=== PATIENT | male | born 1935 | race Caucasian/White ===

== ENCOUNTER 2019-11-03 00:26 | Inpatient (IN) | payer OTHER ==
[~2019-11-03] VITALS: Ht 167.6 cm; Wt 86.2 kg
[2019-11-03 00:28] VITALS: BP 120/70
--- NOTE | 2019-11-03 00:28 | NUR ---
BIBA TAKEN TO BED #11
--- NOTE | 2019-11-03 00:30 | NUR ---
84 year old male presents to ED bib BLS for c/o anxiety x 3 hours. pt states sometimes have SOB but no work of breathing noted. rr even and unlabored. denies cough. pt is a/o x 4 and verbal. denies any headache or blurry vision. noted pacemaker . noted lt sided hemiparesis. no other s/sx reported or observed. awaiting MSE. connected to cardiac monitoring and pulse oximetry monitoring. safety precautions in place with bed lowest and locked pmhx: emphysema, prostate ca, cva with lt hemiparesis, pacemaker. allx: pcn
[2019-11-03] MEDS ORDERED: NITROGLYCERIN 0.4 MG TAB SL ONE (00:45)
--- NOTE | 2019-11-03 01:08 | NUR ---
xray at bedside.
[2019-11-03 01:18] LABS: BASOPHILS % (AUTO) 0.8 % (0.0-2.0); EOSINOPHILS # (AUTO) 0.3 K/uL (0-0.4); EOSINOPHILS % (AUTO) 5.3 % (0.0-4.0); HEMATOCRIT 30.7 % (36-52); HEMOGLOBIN 9.9 g/dL (12.0-18.0); LYMPHOCYTES # (AUTO) 0.7 K/uL (2.0-11.5); LYMPHOCYTES % (AUTO) 10.8 % (20.5-51.1); MEAN CORPUSCULAR HEMOGLOBIN 33 pg (27-31); MEAN CORPUSCULAR HGB CONC 32 g/dL (33-37); MONOCYTES # (AUTO) 0.5 K/uL (0.8-1.0); MONOCYTES % (AUTO) 8.7 % (1.7-9.3); NEUTROPHILS # (AUTO) 4.5 K/uL (1.8-7.7); NEUTROPHILS % (AUTO) 74.4 % (42.2-75.2); PLATELET COUNT (AUTO) 140 K/uL (140-450); RED BLOOD CELL COUNT(AUTO) 2.99 MIL/uL (4.20-6.10); RED CELL DISTRIBUTION WIDTH 14.5 % (11.6-13.7); WHITE BLOOD COUNT (AUTO) 6.1 K/uL (4.8-10.8)
[2019-11-03 01:41] LABS: ALBUMIN 3.2 g/dL (3.4-5.0); ANION GAP 19.4 (8-16); ASPARTATE AMINOTRANSFERASE 49 U/L (15-37); CARBON DIOXIDE 17.7 mmol/L (21-32); CHLORIDE 108 mmol/L (98-107); GLUCOSE 92 mg/dL (74-106); POTASSIUM 4.1 mmol/L (3.5-5.1); SODIUM SERUM 141 mmol/L (136-145); TOTAL BILIRUBIN 0.4 mg/dL (0.0-1.0); UREA NITROGEN, BLOOD 33 mg/dL (7-18)
[2019-11-03] MEDS ORDERED: ASPIRIN 81 MG TAB.CHEW PO ONE (02:35)
[2019-11-03] MEDS ORDERED: ONDA4TAB PO (02:37)
[2019-11-03] MEDS ORDERED: ACET-5629 PO (02:37)
[2019-11-03] MEDS ORDERED: ESCI20TA PO (02:37)
[2019-11-03] MEDS ORDERED: DOCU-3 PO (02:37)
[2019-11-03] MEDS ORDERED: ATOR40TA PO (02:37)
[2019-11-03] MEDS ORDERED: OSC500 PO (02:37)
[2019-11-03] MEDS ORDERED: LACT10SO40 PO (02:37)
[2019-11-03] MEDS ORDERED: ASPI81EC98 PO (02:37)
[2019-11-03] MEDS ORDERED: FERR-20 PO (02:37)
[2019-11-03] MEDS ORDERED: VITA1TAB44 PO (02:37)
[2019-11-03] MEDS ORDERED: PANT40EC PO (02:37)
[2019-11-03] MEDS ORDERED: ISOS20TA13 PO (02:37)
[2019-11-03] MEDS ORDERED: MULT-2611 PO (02:37)
[2019-11-03] MEDS ORDERED: NITR0.4T2 SL (02:37)
[2019-11-03] MEDS ORDERED: CARV6.25 PO (02:37)
--- NOTE | 2019-11-03 03:05 | NUR ---
Patient will be admitted to care of Dr. Ortiz. Admited to Telemetry. Will go to room 121. Belongings list completed. Report to Alaina COLLAZO.
[2019-11-03 03:06] VITALS: BP 150/100
--- NOTE | 2019-11-03 03:06 | NUR ---
RECEIVED PT AAOX1 , FROM ER / GURNEY , TRANSFER TO BED BY MANUAL LIFT .NID - O2 SAT WNL , IV SITE INTACRT AND PATENT , HX OF CVA , - FALL RISK , PLAN OF CARE DISCUSSED AND VERBALIZE . SAFETY MEASURE IN PLACE . HIGH TROPONIN UPON ADM . C/O PAIN - WILL REFER TO MD . CODE STATUS WILL VERIFY FROM PATRICK .
--- NOTE | 2019-11-03 04:00 | NUR ---
NO S/SX OF ACUTE DISTRESS NOTED AT THIS TIME . PT APPEARS COMFORTABLY . Addendum: 11/03/19 at 0815 by Alaina Ozuna RN LEFT MSG TO [facility] BUNDY ABOUT CODE STATUS AND DIRECTIVES ORDERS - WILL ENDORSED TO AM SHIFT TO FF UP .
[2019-11-03] MEDS ORDERED: HEPARIN PER PHARMACY MC PRN (04:50)
[2019-11-03] MEDS ORDERED: hePARIN / DEXT 5% PREMIX 250 ML IV SCH (06:00)
[2019-11-03] MEDS: hePARIN / DEXT 5% PREMIX 250 ML IV SCH ×3 (06:20→22:13)
--- NOTE | 2019-11-03 06:20 | NUR ---
HEPARIN DRIP - STARTED - PTT WILL BE AT 1220 PM - WILL ENDORSE , RPT TROPONIN WILL BE ON 945 - WILL ENDORSE .
--- NOTE | 2019-11-03 07:30 | NUR ---
ENDORSED TO AM SHIFT - PT - STABLE .
--- NOTE | 2019-11-03 07:30 | NUR ---
RECEIVED PATIENT FROM NIGHT NURSE. PATIENT IS AWAKE, ALERT, ORIENTED X3. RESP EVEN AND UNLABORED ON ROOM AIR. PATIENT DENIES OF PAIN AT THIS TIME. HEPARIN DRIP INFUSING TO LEFT LOWER LEG IV ACCESS, 1550 UNITS. SKIN IS WARM TO TOUCH. ABLE TO MAKE NEEDS KNOWN. PLAN OF CARE DISCUSSED WITH PATIENT, PATIENT VERBALIZED UNDERSTANDING. CALL LIGHT WITHIN REACH. WILL CONTINUE TO MONITOR. Addendum: 11/03/19 at 1122 by Howard Dennis RN ECCHYMOSIS NOTED TO LEFT UPPER ARM AND LOWE EXTREMITIES. SKIN IS INTACT
--- NOTE | 2019-11-03 07:59 | NUR ---
PATIENT HAS BEEN SCREENED AND CATEGORIZED MODERATE NUTRITION RISK. PATIENT WILL BE SEEN WITHIN 3-5 DAYS OF ADMISSION. 11/05/19 11/07/[address]
[2019-11-03 08:00] VITALS: BP 146/76
--- NOTE | 2019-11-03 08:05 | NUR ---
PATIENT HAS NO POLST ON FILE AND NO CODE STATUS AT THIS TIME. [facility] WAS CALLED AND SPOKE TO ALISHA THE PASSENGER BOOKING CLERK ABOUT PATIENT CODE STATUS, ALISHA WILL CALL THE FACILITY AND WILL FAX OVER ANY INFORMATION ABOUT PATIENT CODE STATUS. SPOKE TO PATIENT SON NELLY. ACCORDING TO PATIENT NELLY, PATIENT IS A DNR AND BEEN UNDER THE [facility]. WILL CONTINUE TO MONITOR.
[2019-11-03 08:40] LABS: BARBITURATE, URINE NEGATIVE ng/ml (NEG <=200); BENZODIAZEPINE, URINE POSITIVE ng/mL (NEG <=200); COCAINE, URINE NEGATIVE ng/mL (NEG <=300)
[2019-11-03 08:41] LABS: CANNABINOID, URINE NEGATIVE ng/mL (NEG <=50); OPIATE, URINE POSITIVE ng/mL (NEG <=2000); PHENCYCLIDINE SCREEN,URINE NEGATIVE ng/mL (NEG <=25)
--- NOTE | 2019-11-03 09:20 | NUR ---
ALISHA CALLED BACK AND SAID NO INFORMATION ABOUT PATIENT CODE STATUS FOUND AT THE FACILITY. PATIENT WAS ASKED AND HE SAID HE IS A DNR. WILL INFORM DR SAHA TO HAVE FAMILY SIGN A POLST.
[2019-11-03] MEDS ORDERED: oxyCODONE/APAP 5/325 MG 1 TAB TAB PO PRN (09:55)
[2019-11-03] MEDS ORDERED: HYDROcodone/APAP 5/325 MG 1 TAB TAB PO PRN (09:55)
[2019-11-03] MEDS ORDERED: POTASSIUM CHLORIDE 10 MEQ TABER PO PRN (09:55)
[2019-11-03] MEDS ORDERED: ONDANSETRON 4 MG/2 ML VIAL IM/IVP PRN ×2 (09:55→10:35)
[2019-11-03] MEDS ORDERED: MAG SULF 2000 MG/WATER PREMIX 50 ML IV PRN (09:55)
[2019-11-03] MEDS ORDERED: ONDANSETRON 4 MG TAB PO PRN (09:55)
[2019-11-03] MEDS ORDERED: ACETAMINOPHEN 325 MG TAB PO PRN (09:55)
[2019-11-03] MEDS ORDERED: DOCUSATE SODIUM 100 MG GELCAP PO PRN (09:55)
--- NOTE | 2019-11-03 10:01 | NUR ---
PATIENT HAS A AV FISTULA TO RIGHT ANTECUBITAL, B/T NOTED. RIGHT ARM RESTRICTION TO BP AND BLOOD DRAW SIGN POSTED.
[2019-11-03] MEDS: MORPHINE SULFATE 2 MG/ML SYR IVP PRN ×2 (10:35→15:38)
[2019-11-03 10:44] LABS: CHOL/HDL RATIO 5.2 (1-4.5); THYROID STIMULATING HORMONE 1.18 uIU/mL (0.34-3.74)
[2019-11-03 12:00] VITALS: BP 143/75
[2019-11-03 13:26] LABS: PROTHROMBIN TIME 12.9 secs (10.8-13.4)
--- NOTE | 2019-11-03 13:45 | NUR ---
APTT RESULT >150 SEC. PER HEPARIN PROTOCOL, HEPARIN IS NOW ON HOLD FOR ONE HOUR THEN WILL REDUCE RATE BY 260 UNITS/HR. APTT IS NOW BEING REDRAWN TO CONFIRM.
[2019-11-03] MEDS: NACL 0.9% 1,000 ML IV SCH (14:08)
--- NOTE | 2019-11-03 14:12 | NUR ---
NUMEROUS ATTEMPTS MADE TO INSERT A SECOND IV ACCESS, BUT WERE UNSUCCESSFUL. NS IS NOW RUNNING INTO IV ACCESS OF LOWER LEG.
--- NOTE | 2019-11-03 14:53 | NUR ---
HEPARIN DRIP RESTART PER PROTOCOL 1290 UNITS/HR.
[2019-11-03 16:00] VITALS: BP 156/80
--- NOTE | 2019-11-03 16:05 | NUR ---
PT WANTS TO CONSIDER HOSPICE ONCE HE'S DISCHARGED BACK TO [facility]. PATIENT ALSO MENTIONED THAT ALISHA, THE CAUSTIC LIQUOR MAKER OF [facility] AND HIS SON NELLY ARE AWARE OF THE POTENTIAL PLAN OF HOSPICE CARE. PATIENT SON IS MADE AWARE.
[2019-11-03 16:30] LABS: APPEARANCE,URINE CLEAR (CLEAR); BILIRUBIN,URINE NEGATIVE (NEGATIVE); BLOOD, URINE TRACE-I (NEGATIVE); COLOR,URINE YELLOW (YELLOW); LEUKOCYTE ESTERASE ,URINE NEGATIVE (NEGATIVE); NITRITE, URINE NEGATIVE (NEGATIVE); PH,URINE 5.5 (5.0-9.0); UGLUCOSE NEGATIVE (NEGATIVE)
--- NOTE | 2019-11-03 16:37 | NUR ---
SPOKE WITH DR. VEGA REGARDING THE CONSULT. PER DR. VEGA, HE WILL SEE PT TOMORROW MORNING. DR. SAHA AND LIZBETH COLLAZO MADE AWARE.
[2019-11-03] MEDS: LACTULOSE 20 GM/30 ML UDC PO SCH (16:46)
[2019-11-03] MEDS: LORazepam 2 MG/ML VIAL IM/IVP PRN (17:16)
--- NOTE | 2019-11-03 17:42 | NUR ---
SPOKE WITH ALISHA PER PATIENT REQUEST ABOUT HOSPICE CARE. PER ALISHA, PATIENT WILL NOT BE TAKEN BACK TO [facility] UNLESS HE HAS HOSPICE CARE FOLLOW. ALISHA STATED JON THE YEAST FERMENTATION ATTENDANT AT [facility] IN [place] IS READY TO TAKE PATIENT ONCE PATIENT HAS DECIDED FOR HOSPICE CARE. JON CAN BE REACHED AT [phone]. PATIENT IS MADE AWARE THAT COPY CAMERA OPERATOR WILL BE HERE DURING THE WEEK AND WILL SET UP HOSPICE FOR HIM. PATIENT VERBALIZED UNDERSTANDING. WILL CONTINUE TO MONITOR.
--- NOTE | 2019-11-03 19:26 | NUR ---
RECEIVED PATIENT IN STABLE CONDITION FROM AM SHIFT NURSE FOR CONTINUITY OF CARE. TELE PATIENT. AAOX2-3, ABLE TO MAKE NEEDS KNOWN, FOLLOWS SIMPLE COMMANDS. RESPIRATIONS EVEN, UNLABORED. SKIN WARM, DRY. IV SITE TO LEFT LOWER LEG PATENT/INTACT, INFUSING HEPARIN AND FLUIDS WELL. NO C/O PAIN. NO S/S ACUTE DISTRESS. ABDOMEN SOFT, NONTENDER, NONDISTENDED. PATIENT IS INCONTINENT OF BOWEL AND BLADDER. PLAN OF CARE DISCUSSED WITH PATIENT. SAFETY PRECAUTIONS IN PLACE. CALL LIGHT WITHIN REACH.
--- NOTE | 2019-11-03 19:26 | NUR ---
ENDORSED PATIENT TO NIGHT NURSE. PATIENT IN STABLE CONDITION.
[2019-11-03 20:00] VITALS: BP 100/55
[2019-11-03] MEDS: DOCUSATE SODIUM 100 MG GELCAP PO SCH (20:45)
[2019-11-03] MEDS: ATORVASTATIN 20 MG TAB PO SCH (20:46)
[2019-11-03] MEDS: carvediloL 6.25 MG TAB PO SCH (20:56)
--- NOTE | 2019-11-03 21:10 | NUR ---
RECEIVED APTT FROM LAB OF 120.3. HEPARIN HELD PER PROTOCOL. PATIENT IS ASLEEP AND IN NO DISTRESS. CALL LIGHT WITHIN REACH. SAFETY PRECAUTIONS IN PLACE.
--- NOTE | 2019-11-03 22:10 | NUR ---
PATIENT'S HEPARIN RESTARTED AND LOWERED TO 10.3 ML/HR (1030 UNITS/HR) ORDERED. PATIENT ASLEEP AND IN NO DISTRESS. CALL LIGHT WITHIN REACH. SAFETY PRECAUTIONS IN PLACE.
--- NOTE | 2019-11-03 23:29 | NUR ---
PATIENT IS ASLEEP AND IN STABLE CONDITION. NO S/S ACUTE DISTRESS. CALL LIGHT WITHIN REACH. SAFETY PRECAUTIONS IN PLACE.
[2019-11-04] VITALS: BP 144/73
[2019-11-04] MEDS: MORPHINE SULFATE 2 MG/ML SYR IVP PRN ×4 (00:13→18:55)
--- NOTE | 2019-11-04 00:13 | NUR ---
PATIENT C/O ACHING CHEST PAIN 09/13. MEDICATED ORDERED.
[2019-11-04] MEDS: hePARIN / DEXT 5% PREMIX 250 ML IV SCH ×4 (00:51→21:08)
--- NOTE | 2019-11-04 01:13 | NUR ---
REASSESSED PATIENT'S PAIN LEVEL AT 0/10, PATIENT IS ASLEEP. CALL LIGHT WITHIN REACH. SAFETY PRECAUTIONS IN PLACE.
--- NOTE | 2019-11-04 03:00 | NUR ---
PATIENT IS ASLEEP. NO S/S ACUTE DISTRESS. CALL LIGHT WITHIN REACH.
[2019-11-04 04:00] VITALS: BP 140/81
--- NOTE | 2019-11-04 05:00 | NUR ---
INCONTINENT CARE RENDERED WITH SHIFT SUPERINTENDENT AT BEDSIDE. PATIENT IS AWAKE WITH NO C/O PAIN. NO S/S ACUTE DISTRESS. CALL LIGHT WITHIN REACH. SAFETY PRECAUTIONS IN PLACE.
--- NOTE | 2019-11-04 06:05 | NUR ---
RECEIVED APTT FROM LAB OF 126.7. HEPARIN PROTOCOL FOLLOWED. PATIENT IS ASLEEP AND IN NO DISTRESS AT THIS TIME. CALL LIGHT IN REACH. SAFETY PRECAUTIONS IN PLACE.
[2019-11-04 06:21] LABS: BASOPHILS # (AUTO) 0.1 K/uL (0.00-0.22); BASOPHILS % (AUTO) 1.3 % (0.0-2.0); EOSINOPHILS # (AUTO) 0.2 K/uL (0-0.4); EOSINOPHILS % (AUTO) 4.5 % (0.0-4.0); HEMATOCRIT 28.1 % (36-52); HEMOGLOBIN 9.2 g/dL (12.0-18.0); LYMPHOCYTES # (AUTO) 0.5 K/uL (2.0-11.5); MEAN CORPUSCULAR HEMOGLOBIN 33 pg (27-31); MEAN CORPUSCULAR HGB CONC 33 g/dL (33-37); MEAN CORPUSCULAR VOLUME 101.5 fL (80-94); MONOCYTES # (AUTO) 0.3 K/uL (0.8-1.0); MONOCYTES % (AUTO) 5.9 % (1.7-9.3); NEUTROPHILS % (AUTO) 78.3 % (42.2-75.2); PLATELET COUNT (AUTO) 124 K/uL (140-450); RED BLOOD CELL COUNT(AUTO) 2.76 MIL/uL (4.20-6.10); RED CELL DISTRIBUTION WIDTH 13.8 % (11.6-13.7); WHITE BLOOD COUNT (AUTO) 5.1 K/uL (4.8-10.8)
[2019-11-04 06:36] LABS: ANION GAP 16.5 (8-16); CARBON DIOXIDE 19.2 mmol/L (21-32); CHLORIDE 109 mmol/L (98-107); CREATININE 2.8 mg/dL (0.6-1.3); GLUCOSE 84 mg/dL (74-106); POTASSIUM 3.7 mmol/L (3.5-5.1); SODIUM SERUM 141 mmol/L (136-145); UREA NITROGEN, BLOOD 29 mg/dL (7-18)
[2019-11-04 06:38] LABS: MAGNESIUM 1.5 mg/dL (1.8-2.4)
--- NOTE | 2019-11-04 07:16 | NUR ---
ENDORSED PATIENT IN STABLE CONDITION TO AM SHIFT NURSE FOR CONTINUITY OF CARE.
--- NOTE | 2019-11-04 07:17 | NUR ---
RECEIVED REPORT FROM SENIOR CONTROL SYSTEMS ENGINEER NURSE. PATIENT SITTING IN BED WITH BREAKFAST TRAY IN FRONT. NO DISTRESS NOTED. RESPIRATIONS EVEN, UNLABORED, ON ROOM AIR. IV SITE INTACT, PATENT, AND INFUSING IVF PER MD ORDERS. RUARM AV FISTULA NOTED, INTACT, PATENT. HAS BUTTOCK SKIN TEAR, DRESSING DRY AND INTACT. USES URINAL FOR URINATING. REVIEWED PLAN OF CARE WITH PATIENT. REINFORCEMENT NEEDED. SAFETY MEASURES IN PLACE, CALL LIGHT WITHIN REACH. WILL CONTINUE TO MONITOR.
[2019-11-04 08:00] VITALS: BP 158/84
[2019-11-04 08:09] LABS: T4 (THYROXINE) 7.4 ug/dL (4.5-12.0)
[2019-11-04] MEDS ORDERED: MULTIVITAMIN 1 TAB PO SCH (09:00)
[2019-11-04] MEDS: VIT-B COMP/VIT-C/FOLIC ACID 1 TAB PO SCH (09:22)
[2019-11-04] MEDS: carvediloL 6.25 MG TAB PO SCH ×2 (09:22→20:46)
[2019-11-04] MEDS: ISOSORBIDE DINITRATE 20 MG TAB PO SCH (09:23)
[2019-11-04] MEDS: LACTULOSE 20 GM/30 ML UDC PO SCH ×3 (09:23→20:45)
[2019-11-04] MEDS: ECOTRIN 81 MG TABEC PO SCH (09:23)
[2019-11-04] MEDS: CALCIUM CARBONATE 500 MG TAB PO SCH (09:23)
[2019-11-04] MEDS: ESCITALOPRAM 20 MG TAB PO SCH (09:23)
[2019-11-04] MEDS: FERROUS SULFATE 325 MG TABEC PO SCH (09:23)
[2019-11-04] MEDS: PANTOPRAZOLE 40 MG TABEC PO SCH (09:23)
[2019-11-04] MEDS: DOCUSATE SODIUM 100 MG GELCAP PO SCH ×2 (09:23→20:45)
--- NOTE | 2019-11-04 09:34 | NUR ---
SCHEDULED MEDICATIONS DUE GIVEN. WILL CONTINUE TO MONITOR.
[2019-11-04] MEDS: NACL 0.9% 1,000 ML IV SCH (09:54)
--- NOTE | 2019-11-04 11:04 | NUR ---
PATIENT LYING DOWN IN BED SLEEPING, AROUSABLE BY VOICE. NO DISTRESS NOTED.
[2019-11-04 12:00] VITALS: BP 121/65
[2019-11-04] MEDS ORDERED: EPOETIN ALFA 10,000 UNITS/ML VIAL SUBQ SCH (12:30)
--- NOTE | 2019-11-04 12:35 | NUR ---
PATIENT COMPLAINS OF PAIN, MORPHINE GIVEN AT THIS TIME. OTHER SCHEDULED MEDICATIONS DUE GIVEN. WILL CONTINUE TO MONITOR.
[2019-11-04] MEDS: LORazepam 2 MG/ML VIAL IM/IVP PRN (14:19)
--- NOTE | 2019-11-04 14:23 | NUR ---
PATIENT COMPLAINS OF ANXIETY. ATIVAN GIVEN AT THIS TIME. WILL CONTINUE TO MONITOR.
[2019-11-04 16:00] VITALS: BP 121/64
--- NOTE | 2019-11-04 16:00 | NUR ---
PATIENT LYING DOWN IN BED. SLEEPING, AROUSABLE BY VOICE. NO DISTRESS NOTED. WILL CONTINUE TO MONITOR.
--- NOTE | 2019-11-04 18:56 | NUR ---
PATIENT COMPLAINS OF PAIN, MORPHINE GIVEN AT THIS TIME. WILL CONTINUE TO MONITOR.
--- NOTE | 2019-11-04 19:13 | NUR ---
GAVE REPORT TO CHAINSTITCH ZIPPER SETTER NURSE FOR CONTINUITY OF CARE. PATIENT IN STABLE CONDITION.
--- NOTE | 2019-11-04 19:20 | NUR ---
RECEIVED PT IN STABLE CONDITION FROM AM NURSE. FOR CONTINUITY OF CARE. AWAKE,ALERT AND ORIENTED X3. TELE PT. WITH PACEMAKER. O2 2L/NC. O2 SAT 97%. BEDREST DUE TO WEAKNESS. NO DISTRESS NOTED. HAS HEPARIN DRIP INFUSING ON THE LT LOWE LEG G#20. CLEAR AND PATENT. NO C/O ANY DISCOMFORT AT THIS TIME. FREQ ROUNDS NEEDED. BED ON LOW POSITION. SIDE RAILS UP X2. CALL LIGHT WITHIN REACH. WILL CONTINUE TO MONITOR.
[2019-11-04 20:00] VITALS: BP 126/77
[2019-11-04] MEDS: FUROSEMIDE 20 MG TAB PO SCH (20:45)
[2019-11-04] MEDS: SODIUM BICARBONATE 650 MG TAB PO SCH (20:46)
[2019-11-04] MEDS: ATORVASTATIN 20 MG TAB PO SCH (20:46)
--- NOTE | 2019-11-04 21:00 | NUR ---
LAB CALLED FOR PTT LEVEL 83.6 , ON HEPARIN DRIP . PROTOCOL FOLLOWED. ZAY LEVY CHARGE AWARE AND CO SIGNED THE CHANGE. NEXT PTT WILL BE 0300 AM.
[2019-11-04] MEDS: ZOLPIDEM 5 MG TAB PO PRN (21:12)
--- NOTE | 2019-11-04 22:00 | NUR ---
MADE ROUNDS. PT IS ASLEEP. NO S/S OF ANY DISCOMFORT NOTED. WILL CONTINUE TO MONITOR.
[2019-11-05] VITALS: BP 115/67
--- NOTE | 2019-11-05 00:10 | NUR ---
CHECKED ON PT. SLEEP. WITH HEPARIN DRIP INFUSING WELL. NO S/S OF ANY DISTRESS NOTED.
--- NOTE | 2019-11-05 01:00 | NUR ---
ENDORSED PT IN STABLE CONDITION TO MILDRED ,FOR CONTINUITY OF CARE.
--- NOTE | 2019-11-05 01:10 | NUR ---
RECEIVED REPORT OF PT IN STABLE CONDITION.NO ANY DISTRESS.HEPARIN DRIP IS IN PROGRESS. WILL CONTINUE MONITORING.
[2019-11-05] MEDS: LORazepam 2 MG/ML VIAL IM/IVP PRN ×3 (03:18→22:41)
[2019-11-05 03:19] LABS: BASOPHILS % (AUTO) 0.9 % (0.0-2.0); EOSINOPHILS # (AUTO) 0.2 K/uL (0-0.4); EOSINOPHILS % (AUTO) 4.8 % (0.0-4.0); HEMATOCRIT 28.2 % (36-52); HEMOGLOBIN 9.1 g/dL (12.0-18.0); LYMPHOCYTES # (AUTO) 0.7 K/uL (2.0-11.5); LYMPHOCYTES % (AUTO) 14.3 % (20.5-51.1); MEAN CORPUSCULAR HEMOGLOBIN 33 pg (27-31); MEAN CORPUSCULAR HGB CONC 32 g/dL (33-37); MEAN CORPUSCULAR VOLUME 101.8 fL (80-94); MONOCYTES # (AUTO) 0.4 K/uL (0.8-1.0); MONOCYTES % (AUTO) 8.5 % (1.7-9.3); NEUTROPHILS # (AUTO) 3.4 K/uL (1.8-7.7); NEUTROPHILS % (AUTO) 71.5 % (42.2-75.2); PLATELET COUNT (AUTO) 136 K/uL (140-450); RED BLOOD CELL COUNT(AUTO) 2.77 MIL/uL (4.20-6.10); RED CELL DISTRIBUTION WIDTH 13.8 % (11.6-13.7); WHITE BLOOD COUNT (AUTO) 4.7 K/uL (4.8-10.8)
[2019-11-05 03:43] LABS: MAGNESIUM 2.2 mg/dL (1.8-2.4); PHOSPHORUS 2.9 mg/dL (2.5-4.9)
[2019-11-05 03:45] LABS: ALBUMIN 2.9 g/dL (3.4-5.0); ANION GAP 17.9 (8-16); ASPARTATE AMINOTRANSFERASE 61 U/L (15-37); CARBON DIOXIDE 17.9 mmol/L (21-32); CHLORIDE 109 mmol/L (98-107); CREATININE 2.9 mg/dL (0.6-1.3); GLUCOSE 83 mg/dL (74-106); POTASSIUM 3.8 mmol/L (3.5-5.1); SODIUM SERUM 141 mmol/L (136-145); TOTAL BILIRUBIN 0.4 mg/dL (0.0-1.0); UREA NITROGEN, BLOOD 29 mg/dL (7-18)
[2019-11-05 04:00] VITALS: BP 118/65
[2019-11-05] MEDS: hePARIN / DEXT 5% PREMIX 250 ML IV SCH (04:25)
--- NOTE | 2019-11-05 04:57 | NUR ---
PTT=59.8.NO NEED TO CHANGE RATE OF HEPARIN DRIP.STILL IS 6ML/H.TROPONIN=0.165.DIDN'T CALL MD DUE TO TRENDING DOWN. HR IS PACED ON 70/H.HAD C/O ANXIETY.ADMINISTERED ATIVAN IVP.SLEEPING AT THIS TIME W/O S/S OF ANY DISTRESS.
--- NOTE | 2019-11-05 06:08 | NUR ---
SLEEPING. NO S/S OF ANY DISTRESS NOTED AT PRESENT TIME.HEPARIN DRIP AT 6ML/H INFUSING WELL.CALL LIGHT WITHIN REACH.
[2019-11-05] MEDS: MORPHINE SULFATE 2 MG/ML SYR IVP PRN ×3 (07:35→19:05)
--- NOTE | 2019-11-05 07:36 | NUR ---
HAD C/O RT ARM PAIN MORPHINE 1MG IVP GIVEN.ENDORSED REPORT TO SANTA COLLAZO AM NURSE.HE WILL REASSESS PAIN LATER.
--- NOTE | 2019-11-05 07:37 | NUR ---
RECEIVED REPORT FROM UNION ORGANISER NURSE. PATIENT SITTING IN BED. NO DISTRESS NOTED. COMPLAINS OF PAIN, WILL MEDICATE WITH MORPHINE. RESPIRATIONS EVEN, UNLABORED, ON ROOM AIR. IV SITE INTACT, PATENT, AND INFUSING IVF PER MD ORDERS. RUARM AV FISTULA NOTED, INTACT, PATENT. HAS BUTTOCK SKIN TEAR, DRESSING DRY AND INTACT. USES URINAL FOR URINATING. REVIEWED PLAN OF CARE WITH PATIENT. REINFORCEMENT NEEDED. SAFETY MEASURES IN PLACE, CALL LIGHT WITHIN REACH. WILL CONTINUE TO MONITOR.
[2019-11-05 08:00] VITALS: BP 141/66
[2019-11-05] MEDS: ISOSORBIDE DINITRATE 20 MG TAB PO SCH ×2 (09:00→10:22)
[2019-11-05] MEDS ORDERED: VIT-B COMP/VIT-C/FOLIC ACID 1 TAB PO SCH (09:00)
[2019-11-05] MEDS: carvediloL 6.25 MG TAB PO SCH ×2 (09:00→20:20)
[2019-11-05] MEDS: NACL 0.9% 1,000 ML IV SCH (09:54)
[2019-11-05] MEDS: FUROSEMIDE 20 MG TAB PO SCH ×2 (10:16→20:20)
[2019-11-05] MEDS: ECOTRIN 81 MG TABEC PO SCH (10:16)
[2019-11-05] MEDS: LACTULOSE 20 GM/30 ML UDC PO SCH ×2 (10:16→20:18)
[2019-11-05] MEDS: CALCIUM CARBONATE 500 MG TAB PO SCH (10:16)
[2019-11-05] MEDS: VIT-B COMP/VIT-C/FOLIC ACID 1 TAB PO SCH (10:17)
[2019-11-05] MEDS: ESCITALOPRAM 20 MG TAB PO SCH (10:17)
[2019-11-05] MEDS: PANTOPRAZOLE 40 MG TABEC PO SCH (10:17)
[2019-11-05] MEDS: DOCUSATE SODIUM 100 MG GELCAP PO SCH ×2 (10:17→20:19)
[2019-11-05] MEDS: FERROUS SULFATE 325 MG TABEC PO SCH (10:17)
[2019-11-05] MEDS: SODIUM BICARBONATE 650 MG TAB PO SCH ×2 (10:17→20:21)
--- NOTE | 2019-11-05 10:22 | NUR ---
SCHEDULED MEDICATIONS DUE GIVEN. WILL CONTINUE TO MONITOR
--- NOTE | 2019-11-05 11:27 | NUR ---
RESEARCH ENVIRONMENTAL ENGINEER NOTE: Patient's Orientation Unable To Assess Information Provided By ALISHA HAMILTON - STOCK CHECKERER Comments SW WAS UNABLE TO SPEAK TO WITH PATIENT AT BEDSIDE. [place] Worker, Realtionship and Phone Number ALISHA HAMILTON STOCK CHECKERER OF [facility] [phone] NELLY TOBIAS SON [phone] Healthcare Power of Client Services Coordinator No Does Patient Have a POLST No Identifying Problems No Social Work Triggers Is A Social Work Consult Needed No Mandate Report Filed No Explanation Of Identifying Problems PATIENT IS AN 84-YEAR-OLD MAEL ADMITTED FOR NSTEMI. PATIENT HAS PMHX OF EMPHYSEMA, PROSTATE CANCER, CVA, AND PACEMAKER. Admitted From Assisted Living/Resident Pre-Admission Level Of Functioning Status Assist With ADL Level Of Functioning Comment PER ALISHA, PATIENT NEEDS SOME ASSISTANCE WITH ADLS BUT HAS BEEN DECLINING. Prior Resources/Services Used In Last 12 Months Board & Care Prior DME Hospital Bed Wheelchair Other DME: MOTOR CHAIR Living Situation Asst'd Living/Board &Care Other Living Situation/Comment [facility] - [phone] Patient Had Caregiver No Home Support No Caregiver Issues Financial Issues No Known Financial Issue Referral To The Financial Counselor Needed No Factors/Needs [facility]ist [facility] Explanation And Or Other Factors Affecting/Possible DC Needs PER ALISHA, ALISHA WANTED TO LOOK INTO HOSPICE FOR PATIENT AFTER DISCHARGE. Discharge Plan Comments TENTATIVE DISCHARGE PLAN IS FORP ATIENT TO RETURN TO [facility]. DC Plan Status Initiated
[2019-11-05 12:00] VITALS: BP 116/116
--- NOTE | 2019-11-05 13:20 | NUR ---
PATIENT LYING DOWN WITH COMPLAINTS OF PAIN, MORPHINE GIVEN AT THIS TIME. WILL CONTINUE TO MONITOR.
--- NOTE | 2019-11-05 15:30 | NUR ---
PATIENT LYING DOWN IN BED SLEEPING, AROUSABLE BY VOICE. CONDTION UNCHANGED. WILL CONTINUE TO MONITOR.
--- NOTE | 2019-11-05 15:44 | NUR ---
DC PLANNIN YRS OLD MALE PATIENT WAS ADMITTED FROM HOME WITH A DX OF NSTEMI . PT HAS A HX OF PROSTATE CA ,CVA WITH LEFT SIDED WEAKNESS, EMPHYSEMA AND PACEMAKER . CXRAY SHOWED NO ACUTE DISEASE. LIVER ULTRASOUND FATTY LIVER. STARTED ON IVF ,IV LASIX AND CONTINUED HOME MEDS . CONSULTED WITH NEPHRO AND DICE PERSON . DC PLAN TO GO HOME WHEN STABLE CM TO FOLLOW. Addendum: 11/06/19 at 1105 by Felicia Menendez CM DC MARKETING SERVICES COORDINATOR: RECEIVED D/C ORDER FOR PATIENT TO RETURN TO [facility]. SPOKE TO UNIT TENDER ALISHA HAMILTON [phone]. HE STATED THAT PATIENT CAN NOT RETURN UNLESS ON HOSPICE. HE STATED THAT DR. CHALINO MOREAU WAS AWARE. Addendum: 11/06/19 at 1114 by Felicia Mneendez CM DC MARKETING SERVICES COORDINATOR: SPOKE TO PATIENTS NELLY HERNANDEZ [phone] HE HAS BEEN CONTACTED BY UNIT TENDER ALISHA HAMILTON AND IS AWARE AND ON BOARD WITH HOSPICE FOR HIS FATHER. CONTACTED DR. SAHA SHE WILL PUT IN AN ORDER FOR HOSPICE. Addendum: 11/06/19 at 1143 by Felicia Menendez CM PALMA TRISTAN: CONTACTED [facility] [phone] AND SPOKE TO JON SHE REQUESTED I FAX OVER PATIENTS CLINICALS TO [phone]. FAXED PATIENTS CLINICALS WILL FOLLOW UP. Addendum: 11/06/19 at 1216 by Felicia Menendez CM FOLLOWED UP WITH JON AT [facility] HER DIRECTOR IS REVIEWING THE PATIENTS CLINICALS AND WILL CONTACT ME BACK. Addendum: 11/06/19 at 1351 by Felicia Menendez CM RECEIVED A CALL BACK FROM JON SHE SPOKE TO THE PATIENT REGARDING HOSPICE AND THIS PATIENT WAS NOT ON BOARD HE WISHES TO OUT WEIGH ALL HIS OPTIONS FIRST BEFORE AGREEING TO HOSPICE. SPOKE TO ALISHA FROM [facility] AND EXPLAINED TO HIM THE CONVERSATION I HAD WITH JON. HE AGREED TO TAKING THE PATIENT BACK IF DR. ALLRED IS WILLING TO PRESCRIBE MEDICATION FOR PATIENTS ANXIETY AND SHORTNESS OF BREATH. HE ALSO STATED THAT HE NEEDS TO SPEAK TO THE PATIENT ABOUT HAVING RESPECT TOWARDS HIS STAFF AT THE BOARD AND CARE. WILL FOLLOW UP WITH HIM Addendum: 11/06/19 at 1517 by Felicia Menendez CM PALMA TRISTAN: FOLLOWED UP WITH ALISHA HAMILTON UNIT TENDER OF [facility] TO SEE WHAT DR. ALLRED DECISION WAS. HE STATED THAT DR. ALLRED RECOMMENDS THAT THIS PATIENT COULD BENEFIT FROM A NURSING HOME FACILITY. SPOKE TO PATIENTS SAVANAH TOBIAS [phone] HE HAD ALREADY RECEIVED A CALL FROM ALISHA EXPLAINING THE BENEFITS OF A SNF. NELLY ASKED THAT I CALL HIM BACK IN 20 MINS BECAUSE HE WAS ON THE OTHER LINE WITH HIS FATHER DISCUSSING THIS PLAN. FAXED PATIENTS CLINICALS TO [facility] [phone] AND SPOKE WITH [facility]. THEY ARE ABLE TO ACCEPT THIS PATIENT AT THEIR FACILITY UNDER DR. ALLRED. SHE PROVIDED ROOM NUMBER 16. WILL FOLLOW UP WITH PATIENTS SON Addendum: 11/06/19 at 1556 by Felicia Menendez CM DC MARKETING SERVICES COORDINATOR: FOLLOWED UP WITH PATIENTS SON, HE WAS ABLE TO SPEAK TO HIS FATHER ABOUT HIS DECISION. THE PATIENT IS WILLING TO GO TO SNF BUT HE STILL WANTS AN OPINION FIRST FROM HIS DICE PERSON. HIS SON STATED THAT HE IS GOING TOMORROW MORNING TO ENGRAVER HAND [employer] THE IMAGES OF HIS FATHERS ANGIOGRAM AND SEE WHAT THE DICE PERSON SAYS. BASED OFF WHAT THE DICE PERSON SAYS THE PATIENT WILL DECIDE IF HE IS WILLING TO GO TO A SNF OR PROCEED WITH HOSPICE. HE WILL CONTACT ME BACK TOMORROW. Addendum: 11/07/19 at 1030 by Felicia Menendez CM DC PLANNING: FOLLOWED UP WITH THE PATIENTS SON THIS MORNING HE WAS ON HIS WAY TO DROP OFF THE IMAGES TO THE DICE PERSON BUT HIMSELF AND PATIENT IS AGREEABLE TO GOING TO [facility] UNDER DR. ALLRED Addendum: 11/07/19 at 1235 by Felicia Menendez CM DC MARKETING SERVICES COORDINATOR: VERIFIED WITH SON ONE MORE TIME THAT THEY WERE AGREEABLE TO HIS FATHER GOING TO [facility]. WILL SET UP TRANSPORTATION WITH [facility] AFTER 3:00 PM. ISELA SHEPPARD FROM [facility] THEY WILL ACCEPT THE BILL. Addendum: 11/07/19 at 1247 by Felicia Menendez CM NOTIFIED ZAY ALICEA THAT PATIENT WILL D/C TODAY TO [facility] [phone]. [address] [facility] [address]. PATIENT WILL GO TO ROOM 14A UNDER DR. ALLRED. TRANSPORTATION HAS BEEN SET UP WITH [facility] [phone] FOR 4:00PM WITH OXYGEN AND GURNEY. NOTIFIED ZAY ALICEA AND VALARIE AT [facility].
[2019-11-05 16:00] VITALS: BP 119/71
--- NOTE | 2019-11-05 16:45 | NUR ---
PATIENT LYING DOWN IN BED SLEEPING, AROUSABLE BY VOICE. CONDITION UNCHANGED. WILL CONTINUE TO MONITOR.
--- NOTE | 2019-11-05 18:05 | NUR ---
PATIENT LYING DOWN IN BED SLEEPING, AROUSABLE BY VOICE. NO DISTRES NOTED. CONDITION UNCHANGED. WILL CONTINUE TO MONITOR.
--- NOTE | 2019-11-05 19:25 | NUR ---
GAVE REPORT TO SITE WORKER NURSE FOR CONTINUITY OF CARE. PATIENT IN STABLE CONDITION.
--- NOTE | 2019-11-05 19:27 | NUR ---
RECEIVED REPORT FROM AM NURSE. TELE PT, STABLE, PT AWAKE IN BED LYING COMFORTABLY, VERBALLY RESPONSIVE, AAOX2. NO SOB. KEPT COMFORTABLE. CALL LIGHT WITHIN REACH. WILL CONTINUE TO MONITOR.
[2019-11-05 20:00] VITALS: BP 133/74
--- NOTE | 2019-11-05 20:13 | NUR ---
RAMONAER FAILED AT [employer] WHILE PULLING OUT LIPITOR 40 MG. ABLE TO REMOVED THE MEDICATION AND ADMINISTERED TO PT.
[2019-11-05] MEDS: ATORVASTATIN 20 MG TAB PO SCH (20:21)
--- NOTE | 2019-11-05 22:41 | NUR ---
PT COMPLAINED OF ANXIETY. ATIVAN PRN 0.5 MG GIVEN VIA IVP. NO ADVERSE REACTION NOTED. Addendum: 11/05/19 at 2350 by Jordan Vasquez RN ATIVAN PRN 1MG
--- NOTE | 2019-11-05 23:00 | NUR ---
PT SEEN SLEEPING COMFORTABLY IN BED. CALL LIGHT WITHIN REACH. WILL CONTINUE TO MONITOR.
[2019-11-06] VITALS: BP 118/58
[2019-11-06] MEDS: MORPHINE SULFATE 2 MG/ML SYR IVP PRN (01:37)
--- NOTE | 2019-11-06 01:37 | NUR ---
PT C/O OF PAIN, WITH A SCORE OF 8/10 AND ASKED FOR PAIN MEDICINE. ADMINISTERED MORPHINE PRN VIA IVP. TOLERATED WELL. CALL LIGHT WITHIN REACH. WILL CONTINUE TO MONITOR.
[2019-11-06] MEDS: LORazepam 2 MG/ML VIAL IM/IVP PRN ×4 (02:50→22:04)
--- NOTE | 2019-11-06 02:50 | NUR ---
PT C/O OF ANXIETY. ATIVAN PRN GIVEN. SAFETY MEASURES IN PLACED. CALL LIGHT WITHIN REACH. WILL CONTINUE TO MONITOR.
[2019-11-06 04:00] VITALS: BP 124/71
[2019-11-06 05:20] LABS: BASOPHILS % (AUTO) 0.6 % (0.0-2.0); EOSINOPHILS # (AUTO) 0.2 K/uL (0-0.4); EOSINOPHILS % (AUTO) 5.1 % (0.0-4.0); HEMATOCRIT 27.6 % (36-52); LYMPHOCYTES # (AUTO) 0.6 K/uL (2.0-11.5); LYMPHOCYTES % (AUTO) 13.9 % (20.5-51.1); MEAN CORPUSCULAR HEMOGLOBIN 33 pg (27-31); MEAN CORPUSCULAR HGB CONC 33 g/dL (33-37); MEAN CORPUSCULAR VOLUME 101.8 fL (80-94); MONOCYTES # (AUTO) 0.4 K/uL (0.8-1.0); MONOCYTES % (AUTO) 9.1 % (1.7-9.3); NEUTROPHILS # (AUTO) 3.3 K/uL (1.8-7.7); NEUTROPHILS % (AUTO) 71.3 % (42.2-75.2); PLATELET COUNT (AUTO) 134 K/uL (140-450); RED BLOOD CELL COUNT(AUTO) 2.71 MIL/uL (4.20-6.10); RED CELL DISTRIBUTION WIDTH 13.8 % (11.6-13.7); WHITE BLOOD COUNT (AUTO) 4.7 K/uL (4.8-10.8)
[2019-11-06 05:55] LABS: CARBON DIOXIDE 18.7 mmol/L (21-32); CHLORIDE 109 mmol/L (98-107); CREATININE 2.9 mg/dL (0.6-1.3); GLUCOSE 85 mg/dL (74-106); POTASSIUM 3.7 mmol/L (3.5-5.1); SODIUM SERUM 140 mmol/L (136-145); UREA NITROGEN, BLOOD 28 mg/dL (7-18)
[2019-11-06 06:29] LABS: PHOSPHORUS 2.8 mg/dL (2.5-4.9)
--- NOTE | 2019-11-06 07:00 | NUR ---
RECEIVED REPORT FROM PM RNNOEL. PT CAME FROM [facility]. C/O: ANXIETY. DX: NSTEMI. HX: EMPHYSEMA. PROSTATE CA, CVA, AND PACEMAKER. ALLERGIES: PCN. CODE: DNR. NORMAL SR. IV: NS TKO LT LOWER LEG 20G. DIET: RENAL. PT IS ON RA. LUNG SOUNDS CLEAR. SKIN IS INTACT. PT USES A URINAL. ATIVAN Q4HRS. MORPHINE Q6HRS. D/C HEP DRIP. 11/04 APTT 59.8. TROPONIN 11/04 0.165 PLAN: CARDIOLOGY FOLLOW UP.
[2019-11-06 08:00] VITALS: BP 137/70
[2019-11-06] MEDS: ECOTRIN 81 MG TABEC PO SCH (08:46)
[2019-11-06] MEDS: DOCUSATE SODIUM 100 MG GELCAP PO SCH ×2 (08:46→20:33)
[2019-11-06] MEDS: ESCITALOPRAM 20 MG TAB PO SCH (08:46)
[2019-11-06] MEDS: VIT-B COMP/VIT-C/FOLIC ACID 1 TAB PO SCH (08:46)
[2019-11-06] MEDS: SODIUM BICARBONATE 650 MG TAB PO SCH ×2 (08:46→20:33)
[2019-11-06] MEDS: FERROUS SULFATE 325 MG TABEC PO SCH (08:47)
[2019-11-06] MEDS: carvediloL 6.25 MG TAB PO SCH ×2 (08:47→20:33)
[2019-11-06] MEDS: ISOSORBIDE DINITRATE 20 MG TAB PO SCH (08:47)
[2019-11-06] MEDS: PANTOPRAZOLE 40 MG TABEC PO SCH (08:48)
[2019-11-06] MEDS: CALCIUM CARBONATE 500 MG TAB PO SCH (08:48)
[2019-11-06] MEDS: LACTULOSE 20 GM/30 ML UDC PO SCH ×2 (08:48→20:32)
[2019-11-06] MEDS: FUROSEMIDE 20 MG TAB PO SCH ×2 (08:49→20:34)
--- NOTE | 2019-11-06 09:00 | NUR ---
PASSED MEDICATIONS TO PT. PT TOLERATED WELL. NO COMPLAINTS OF PAIN. BLOOD PRESSURE AND HR ARE WITHIN NORMAL RANGE. POSSIBLE D/C TODAY. WAITING FOR FURTHER ORDERS FROM DR. SAHA.
[2019-11-06] MEDS: NACL 0.9% 1,000 ML IV SCH (09:54)
[2019-11-06] MEDS ORDERED: LACT10SO11 PO (10:33)
[2019-11-06] MEDS ORDERED: FURO20TA8 PO (10:33)
--- NOTE | 2019-11-06 10:33 | NUR ---
RECEIVED D/C ORDERS. WAITING FOR CM TO ARRANGE TRANSPORTATION.
--- NOTE | 2019-11-06 11:53 | NUR ---
GAVE ATIVAN 0.5ML FOR PT DUE TO FEELING ANXIOUS. PT TOLERATED WELL. WAITING FOR FURTHER DC INSTRUCTIONS.
[2019-11-06 12:00] VITALS: BP 105/58
--- NOTE | 2019-11-06 14:00 | NUR ---
PT WILL BE DC TOMORROW. SEAT PACK INSPECTOR NOTIFIED, DR SAHA NOTIFIED, FAMILY MEMBERS NOTIFIED.
[2019-11-06 16:00] VITALS: BP 112/67
[2019-11-06] MEDS: NITROGLYCERIN 0.4 MG TAB SL PRN (18:54)
--- NOTE | 2019-11-06 19:15 | NUR ---
transfer of care to pm rnkari. pt is resting in bed. no signs of distress. vs stable
--- NOTE | 2019-11-06 19:18 | NUR ---
PT RECEIVED FROM AM NURSE. TELE PT PACED RHYTHM, HAS PACEMAKER. PT LYING ON BED COMFORTABLY. VERBALLY RESPONSIVE AND ABLE TO MAKE NEEDS KNOWN. AAOX3. RESPIRATIONS EVEN AND UNLABORED, ON ROOM AIR. NO ACUTE DISTRESS NOTED. NORMAL BOWELS SOUND PRESENT IN ALL QUADRANTS. ON RENAL DIET. SKIN WARM, DRY AND INTACT. IV LINE 20G ON L LOWER LEG PATENT AND FLUSHED. KEPT COMFORTABLE. SAFETY PRECAUTIONS IN PLACED. BED IN LOWEST POSITION. URINAL AT BEDSIDE. CALL LIGHT WITHIN REACH.
[2019-11-06 20:00] VITALS: BP 135/76
[2019-11-06] MEDS: ATORVASTATIN 20 MG TAB PO SCH (20:34)
--- NOTE | 2019-11-06 22:04 | NUR ---
ATIVAN PRN WAS ADMINISTERED FOR PT COMPLAINING OF ANXIETY. WILL CHECK ON PT SHORTLY.
[2019-11-07] VITALS: BP 128/79
--- NOTE | 2019-11-07 00:05 | NUR ---
PT IS AWAKE IN BED,AAOX2. O2 2L VIA NC GIVEN. RESPIRATIONS EVEN AND UNLABORED. NO C/O PAIN OR ANXIETY AT THIS TIME. BLANKETS PROVIDED FOR COMFORT. CALL LIGHT WITHIN REACH.
[2019-11-07] MEDS: NITROGLYCERIN 0.4 MG TAB SL PRN (01:23)
--- NOTE | 2019-11-07 01:23 | NUR ---
PT C/O CHEST PAIN, WAS GIVEN NITRO SUBLIGUAL. WILL CHECK IN 5 MINS IF PAIN WAS RELIEVED. PAIN WAS DESCRIBED PRESSURE ON CHEST.
--- NOTE | 2019-11-07 01:28 | NUR ---
PT NO LONGER COMPLAINS OF PAIN IN HIS CHEST. PT IS ASLEEP. PT IS STABLE AT THIS TIME.
[2019-11-07] MEDS: ZOLPIDEM 5 MG TAB PO PRN (02:17)
--- NOTE | 2019-11-07 02:17 | NUR ---
PT COMPLAINS OF NOT BEING ABLE TO SLEEP AND WANTED SOMETHING TO HELP HIM SLEEP FOR A COUPLE HOURS. PT WAS GIVEN MYRA MIRANDA. WILL MONITOR PT TO SEE IF HE IS ABLE TO SLEEP.
[2019-11-07 04:00] VITALS: BP 135/67
--- NOTE | 2019-11-07 04:30 | NUR ---
PT TURNED AND REPOSITIONED FOR COMFORT. ASKED TO USE THE URINAL, WAS ABLE TO VOID 120CC. BED IN LOWEST POSITION. SAFETY PRECAUTIONS IN PLACED. CALL LIGHT WITHIN REACH. WILL CONTINUE TO MONITOR.
[2019-11-07 05:39] LABS: BASOPHILS % (AUTO) 0.8 % (0.0-2.0); EOSINOPHILS # (AUTO) 0.3 K/uL (0-0.4); EOSINOPHILS % (AUTO) 6.7 % (0.0-4.0); HEMATOCRIT 27.1 % (36-52); HEMOGLOBIN 8.8 g/dL (12.0-18.0); LYMPHOCYTES # (AUTO) 0.7 K/uL (2.0-11.5); LYMPHOCYTES % (AUTO) 14.3 % (20.5-51.1); MEAN CORPUSCULAR HEMOGLOBIN 33 pg (27-31); MEAN CORPUSCULAR HGB CONC 32 g/dL (33-37); MEAN CORPUSCULAR VOLUME 101.9 fL (80-94); MONOCYTES # (AUTO) 0.5 K/uL (0.8-1.0); MONOCYTES % (AUTO) 9.7 % (1.7-9.3); NEUTROPHILS # (AUTO) 3.3 K/uL (1.8-7.7); NEUTROPHILS % (AUTO) 68.5 % (42.2-75.2); PLATELET COUNT (AUTO) 135 K/uL (140-450); RED BLOOD CELL COUNT(AUTO) 2.66 MIL/uL (4.20-6.10); RED CELL DISTRIBUTION WIDTH 14.2 % (11.6-13.7); WHITE BLOOD COUNT (AUTO) 4.9 K/uL (4.8-10.8)
[2019-11-07 06:13] LABS: ANION GAP 15.3 (8-16); CARBON DIOXIDE 20.4 mmol/L (21-32); CHLORIDE 109 mmol/L (98-107); GLUCOSE 82 mg/dL (74-106); POTASSIUM 3.7 mmol/L (3.5-5.1); SODIUM SERUM 141 mmol/L (136-145); UREA NITROGEN, BLOOD 28 mg/dL (7-18)
--- NOTE | 2019-11-07 06:19 | NUR ---
PT IS ASLEEP. NO DISTRESS NOTED. CHEST RISE AND FALL SYMMETRICAL. LAYING IN SEMI FOWLERS POSITION ON THE SIDE. CALL LIGHT WITHIN REACH.
[2019-11-07 06:21] LABS: MAGNESIUM 1.9 mg/dL (1.8-2.4); PHOSPHORUS 2.9 mg/dL (2.5-4.9)
--- NOTE | 2019-11-07 07:09 | NUR ---
PT ENDORSED TO AM SHIFT IN STABLE CONDITION FOR CONTINUITY OF CARE.
--- NOTE | 2019-11-07 07:10 | NUR ---
RECEIVED REPORT FROM PM RNYEE. CONTINUING PLAN OF CARE OF PT. PT CAME FROM [facility]. C/O ANXIETY. DX: NSTEMI. HX: EMPHYSEMA, PROSTATE CANCER, CVA, PM. ALLERGIES: PNC. PT IS DNR. A&OX3-4. PT HAS A PACEMAKER. PT IS ON A RENAL DIET. IV: NS TKO ON LT LOWER LEG 20G. SKIN IS INTACT ONE NITRO WAS GIVEN AT 0130, NO COMPLAINTS OF CHEST PAIN. CONSULT WITH CHILD CARE SUPERVISOR AND APPLIANCE SERVICE SUPERVISOR. PLAN: DC TO HOSPICE OR SNF.
[2019-11-07 08:00] VITALS: BP 139/76
[2019-11-07] MEDS: DOCUSATE SODIUM 100 MG GELCAP PO SCH (08:40)
[2019-11-07] MEDS: LACTULOSE 20 GM/30 ML UDC PO SCH (08:40)
[2019-11-07] MEDS: ECOTRIN 81 MG TABEC PO SCH (08:40)
[2019-11-07] MEDS: FERROUS SULFATE 325 MG TABEC PO SCH (08:41)
[2019-11-07] MEDS: PANTOPRAZOLE 40 MG TABEC PO SCH (08:41)
[2019-11-07] MEDS: SODIUM BICARBONATE 650 MG TAB PO SCH (08:41)
[2019-11-07] MEDS: VIT-B COMP/VIT-C/FOLIC ACID 1 TAB PO SCH (08:41)
[2019-11-07] MEDS: FUROSEMIDE 20 MG TAB PO SCH (08:42)
[2019-11-07] MEDS: ISOSORBIDE DINITRATE 20 MG TAB PO SCH (08:42)
[2019-11-07] MEDS: carvediloL 6.25 MG TAB PO SCH (08:42)
[2019-11-07] MEDS: CALCIUM CARBONATE 500 MG TAB PO SCH (08:42)
[2019-11-07] MEDS: ESCITALOPRAM 20 MG TAB PO SCH (08:43)
--- NOTE | 2019-11-07 09:00 | NUR ---
PASSED MEDICATIONS TO PT. PT TOLERATED WELL. GAVE NORCO FOR PAIN. WILL CONTINUE TO MONITOR.
[2019-11-07] MEDS: NACL 0.9% 1,000 ML IV SCH (09:54)
--- NOTE | 2019-11-07 11:00 | NUR ---
PT RESTING IN BED. PT WILL BE DC TO SNF. WAITING FOR FURTHER NOTICE FROM SS WORKER.
[2019-11-07 12:00] VITALS: BP 104/56
[2019-11-07] MEDS: MORPHINE SULFATE 2 MG/ML SYR IVP PRN (13:36)
[2019-11-07 14:56] VITALS: BP 104/56
--- NOTE | 2019-11-07 15:30 | NUR ---
PT WILL BE DC TO [facility] AT 1630, [facility] WILL INSTRUCTOR APPAREL MANUFACTURE PT. SPOKE WITH ALISON FROM [facility] FOR REPORT. DC DOCUMENTS HAVE BEEN COMPLETED.
--- NOTE | 2019-11-07 16:30 | NUR ---
PT HAS BEEN DC WITH [facility]. PT WILL BE GOING TO ROOM 14A UNDER THE CARE OF DR. ALLRED
== END 2019-11-07 16:40 | DRG 280 ==
LOC: MED 00:26 → MTU 02:31
DX: I21.4 Non-ST elevation (NSTEMI) myocardial infarction (principal); N17.0 Acute kidney failure with tubular necrosis; J96.00 Acute respiratory failure, unspecified whether with hypoxia or hypercapnia; I69.354 Hemiplegia and hemiparesis following cerebral infarction affecting left non-dominant side; N18.4 Chronic kidney disease, stage 4 (severe); E44.0 Moderate protein-calorie malnutrition; D63.8 Anemia in other chronic diseases classified elsewhere; E78.5 Hyperlipidemia, unspecified; I12.9 Hypertensive chronic kidney disease with stage 1 through stage 4 chronic kidney disease, or unspecified chronic kidney disease; J43.9 Emphysema, unspecified; Z66 Do not resuscitate; K72.90 Hepatic failure, unspecified without coma; I25.10 Atherosclerotic heart disease of native coronary artery without angina pectoris; K76.0 Fatty (change of) liver, not elsewhere classified; I08.1 Rheumatic disorders of both mitral and tricuspid valves; Z68.30 Body mass index [BMI] 30.0-30.9, adult; Z85.46 Personal history of malignant neoplasm of prostate; Z95.0 Presence of cardiac pacemaker; Z88.0 Allergy status to penicillin; Z79.899 Other long term (current) drug therapy; Z79.82 Long term (current) use of aspirin; Z82.49 Family history of ischemic heart disease and other diseases of the circulatory system
CPT/HCPCS: 36415; 71045; 76705; 80048; 80053; 80305; 81003; 82140; 82150; 83036; 83690; 83735; 83880; 84100; 84134; 84436; 84443; 84484; 85025; 85610; 85730; 87081; 93005; 97110; 97161-GP; 99285; J0885; J1644; J2060; J2270; J2405; J3475; J7030; Q0092; Q0162

== ENCOUNTER 2019-12-21 15:46 | Inpatient (IN) | payer OTHER, SELFPAY ==
[~2019-12-21] VITALS: Ht 185.4 cm; Wt 62.6 kg
[~2019-12-21 15:46] MED LIST: ACET-5629 PO; ASPI81EC98 PO; ATOR40TA PO; CARV6.25 PO; DOCU-3 PO; ESCI20TA PO; FERR-20 PO; FURO20TA8 PO; ISOS20TA13 PO; LACT10SO11 PO; LACT10SO40 PO; LEVO750T2 PO; MULT-2611 PO; NITR0.4T2 SL; ONDA4TAB PO; OSC500 PO; PANT40EC PO; VITA1TAB44 PO
--- NOTE | 2019-12-21 15:46 | NUR ---
Patient BIBA ALS, transferred to bed 7. RN evaluating patient at bedside.
[2019-12-21 15:48] VITALS: BP 106/68
--- NOTE | 2019-12-21 15:54 | NUR ---
Dr. Pina is evaluating the patient at bedside.
[2019-12-21] MEDS ORDERED: ASPIRIN 325 MG TAB PO ONE (16:00)
--- NOTE | 2019-12-21 16:00 | NUR ---
REINA FROM [facility] W C/O WEAKNESS AND HYPOTENSION. PER EMS, PT DID NOT COMPLETE DIALYSIS AND WAS GIVEN 2 L NS TO CORRECT HYPOTENSION. BP AT THIS TIME 109/63. PT IS A & O AND ANSWERING QUESTIONS APPROPRIATELY. PT STATES HE FEELS LETHARGIC/WEAK. PT REPORTS HX OF STROKE WITH L SIDE WEAKNESS, ACUTE RENAL FAILURE WITH R SIDE TUNNELED CATH & R FOREARM SHUNT. PT ALSO REPORTS HX OF CARDIAC SHUNTS AND PACEMAKER BUT IS UNABLE TO STATE THE PACEMAKER DIRECTOR SAFETY COUNCIL. BED IN LOW POSITION, SIDE RAIL UP X1
[2019-12-21] MEDS ORDERED: LACT10SO86 PO (16:05)
[2019-12-21] MEDS ORDERED: MORPHINE SULFATE PO (16:05)
[2019-12-21] MEDS ORDERED: ATI.5 PO (16:05)
--- NOTE | 2019-12-21 16:29 | NUR ---
personnel technician at bedside.
[2019-12-21 16:35] LABS: BASOPHILS # (AUTO) 0.1 K/uL (0.00-0.22); BASOPHILS % (AUTO) 1.2 % (0.0-2.0); EOSINOPHILS # (AUTO) 0.1 K/uL (0-0.4); HEMATOCRIT 26.9 % (36-52); HEMOGLOBIN 8.8 g/dL (12.0-18.0); LYMPHOCYTES # (AUTO) 0.7 K/uL (2.0-11.5); LYMPHOCYTES % (AUTO) 15.5 % (20.5-51.1); MEAN CORPUSCULAR HEMOGLOBIN 32 pg (27-31); MEAN CORPUSCULAR HGB CONC 33 g/dL (33-37); MONOCYTES # (AUTO) 0.3 K/uL (0.8-1.0); MONOCYTES % (AUTO) 7.9 % (1.7-9.3); NEUTROPHILS # (AUTO) 3.1 K/uL (1.8-7.7); NEUTROPHILS % (AUTO) 72.4 % (42.2-75.2); PLATELET COUNT (AUTO) 224 K/uL (140-450); RED BLOOD CELL COUNT(AUTO) 2.72 MIL/uL (4.20-6.10); RED CELL DISTRIBUTION WIDTH 16.1 % (11.6-13.7); WHITE BLOOD COUNT (AUTO) 4.3 K/uL (4.8-10.8)
[2019-12-21] MEDS ORDERED: NACL 0.9% 500 ML IV STA (16:59)
[2019-12-21 17:07] LABS: ALBUMIN 2.4 g/dL (3.4-5.0); ANION GAP 11.9 (8-16); ASPARTATE AMINOTRANSFERASE 56 U/L (15-37); CARBON DIOXIDE 30.8 mmol/L (21-32); CHLORIDE 99 mmol/L (98-107); CREATININE 2.4 mg/dL (0.6-1.3); GLUCOSE 79 mg/dL (74-106); POTASSIUM 3.7 mmol/L (3.5-5.1); SODIUM SERUM 138 mmol/L (136-145); TOTAL BILIRUBIN 0.6 mg/dL (0.0-1.0); UREA NITROGEN, BLOOD 14 mg/dL (7-18)
[2019-12-21] MEDS ORDERED: DOPPLER MC ONE (17:08)
[2019-12-21] MEDS ORDERED: cefTRIAXone 1,000 MG VIAL ONE (17:52)
--- NOTE | 2019-12-21 18:10 | NUR ---
COVID SWAB COLLECTED AND SENT TO LAB
[2019-12-21 18:20] LABS: APPEARANCE,URINE CLEAR (CLEAR); BILIRUBIN,URINE NEGATIVE (NEGATIVE); BLOOD, URINE 1+ (NEGATIVE); COLOR,URINE YELLOW (YELLOW); LEUKOCYTE ESTERASE ,URINE 3+ (NEGATIVE); NITRITE, URINE POSITIVE (NEGATIVE); UGLUCOSE NEGATIVE (NEGATIVE)
[2019-12-21] MEDS ORDERED: LORazepam 2 MG/ML VIAL IM/IVP PRN (18:20)
[2019-12-21] MEDS ORDERED: DOCUSATE SODIUM 100 MG GELCAP PO PRN (18:20)
[2019-12-21] MEDS: NACL 0.9% 1,000 ML IV SCH (18:20)
[2019-12-21] MEDS ORDERED: ZOLPIDEM 5 MG TAB PO PRN (18:20)
[2019-12-21 18:24] LABS: WBC,URINE 80-100 /HPF (0-5)
[2019-12-21 18:50] LABS: PROTHROMBIN TIME 12.2 secs (10.8-13.4)
[2019-12-21 18:54] LABS: CHOL/HDL RATIO 3.4 (1-4.5); FREE T4 (FREE THYROXINE) 1.43 ng/dL (0.76-1.46); MAGNESIUM 1.6 mg/dL (1.8-2.4); PHOSPHORUS 2.4 mg/dL (2.5-4.9); THYROID STIMULATING HORMONE 0.68 uIU/mL (0.34-3.74)
--- NOTE | 2019-12-21 19:00 | NUR ---
REPORT RECEIVED FROM ER NURSE. PT WAS TRANSPORTED VIA GURNEY X2. PT IS ALERT AND ORIENTED X3. RESPIRATION IS EVEN AND UNLABORED. PT ON ROOM AIR. ABLE TO VOICE HIS NEEDS TO STAFF. PT WS ORIENTED TO HIS ROOM AND THE USE OF CALL LIGHT. SKIN IS WARM, DRY AND INTACT. SCATTERED SMALL SCABS OBSERVED TO EXTREMITIES AND BACK. PERIPHERAL ACCESS ON THE LEFT FOREARM G22, ASYMPTOMATIC, PATENT AND INTACT INFUSING NORMAL SALINE @100 MLS/HR. RIGHT CHEST DIALYSIS CATHETER IN PLACE. NON- FUNCTIONING AV SHUNT ON THE RIGHT FOREARM. PT IS INCONTINENT OF BOTH BLADDER AND BOWEL. PACED RHYTHM ON THE MONITOR. BED IN LOWEST POSITION, SIDE RAILS UP, ALL SAFETY MEASURES IN PLACE. WILL CONTINUE TO MONITOR.
--- NOTE | 2019-12-21 19:14 | NUR ---
Patient will be admitted to care of DR. GALINDO. Admited to ICU. Will go to room ICU 8. Belongings list completed. Report to ZAY BROWN.
[2019-12-21] MEDS ORDERED: MAG SULF 2000 MG/WATER PREMIX 50 ML IV ONE (19:15)
--- NOTE | 2019-12-21 19:51 | NUR ---
NOTIFIED DR HERNANDEZ ABOUT TROP 0.172, STATED TO ADD DR SAINZ FOR CARDIAC CONSULT. NEW ORDERS FOR CODE STATUS, SPOKE WITH PT AND FAMILY, DNR/DNI, PRESSORS OK. WILL CONTINUE TO OBSERVE.
[2019-12-21 20:00] VITALS: BP 118/77
[2019-12-21] MEDS ORDERED: MAG SULF 2000 MG/WATER PREMIX 50 ML IV SCH (21:00)
[2019-12-21] MEDS ORDERED: KCL 20 MEQ/WATER INJ PREMIX 200 ML IV SCH (21:00)
[2019-12-21] MEDS: ACETAMINOPHEN 325 MG TAB PO PRN (21:45)
[2019-12-21 22:00] VITALS: BP 112/74
--- NOTE | 2019-12-21 22:00 | NUR ---
TURNED AND REPOSITIONED PT. NO DISTRESS OBSERVED NOTED. WILL CONTINUE TO MONITOR.
[2019-12-22] VITALS (11 sets, daily range): BP systolic 91–133; BP diastolic 51–81
--- NOTE | 2019-12-22 | NUR ---
NO DISTRESS OBSERVED. PRESSURE AREAS OFF LOADED. TURNED AND REPOSITIONED.
--- NOTE | 2019-12-22 02:25 | NUR ---
NO APPARENT DISTRESS NOTED. BLOOD PRESSURE WNL. NO REPORTS OF PAIN AND SOB. WILL CONTINUE TO MONITOR.
--- NOTE | 2019-12-22 04:00 | NUR ---
MORNING CARE PROVIDED. LAURA CARE, ORAL CARE PROVIDED. TURNED AND REPOSITIONED. NO DISTRESS OBSERVED. WILL CONTINUE TO MONITOR.
[2019-12-22] MEDS: NACL 0.9% 1,000 ML IV SCH ×3 (04:20→20:46)
[2019-12-22] MEDS ORDERED: MAG SULF 2000 MG/WATER PREMIX 50 ML IV ONE (05:44)
[2019-12-22 06:08] LABS: ANION GAP 16.8 (8-16); CARBON DIOXIDE 22.7 mmol/L (21-32); CHLORIDE 103 mmol/L (98-107); CREATININE 2.5 mg/dL (0.6-1.3); GLUCOSE 69 mg/dL (74-106); POTASSIUM 4.5 mmol/L (3.5-5.1); SODIUM SERUM 138 mmol/L (136-145); UREA NITROGEN, BLOOD 13 mg/dL (7-18)
[2019-12-22 06:46] LABS: MAGNESIUM 2.4 mg/dL (1.8-2.4); PHOSPHORUS 2.3 mg/dL (2.5-4.9)
[2019-12-22 07:10] LABS: EOSINOPHILS # (AUTO) 0.1 K/uL (0-0.4); EOSINOPHILS % (AUTO) 2.1 % (0.0-4.0); HEMATOCRIT 21.4 % (36-52); LYMPHOCYTES # (AUTO) 0.5 K/uL (2.0-11.5); LYMPHOCYTES % (AUTO) 13.3 % (20.5-51.1); MEAN CORPUSCULAR HEMOGLOBIN 32 pg (27-31); MEAN CORPUSCULAR HGB CONC 31 g/dL (33-37); MEAN CORPUSCULAR VOLUME 103.3 fL (80-94); MONOCYTES # (AUTO) 0.3 K/uL (0.8-1.0); MONOCYTES % (AUTO) 7.3 % (1.7-9.3); NEUTROPHILS # (AUTO) 2.7 K/uL (1.8-7.7); NEUTROPHILS % (AUTO) 76.3 % (42.2-75.2); PLATELET COUNT (AUTO) 144 K/uL (140-450); RED BLOOD CELL COUNT(AUTO) 2.07 MIL/uL (4.20-6.10); RED CELL DISTRIBUTION WIDTH 16.9 % (11.6-13.7); WHITE BLOOD COUNT (AUTO) 3.6 K/uL (4.8-10.8)
[2019-12-22 07:26] LABS: HEMOGLOBIN 6.6 g/dL (12.0-18.0)
--- NOTE | 2019-12-22 07:29 | NUR ---
RECEIVED REPORT FROM NIGHT RN FOR CONTINUITY OF CARE. CC: SYNCOPE AND HYPOTENSION. ADMITTING DX: HYPOTENSION, ELEVATED TROPONIN. PATIENT ASLEEP IN BED. PT IS NONAMBULATORY. AOX4, ABLE TO VERBALIZE NEEDS. O2 SAT 98% ON ROOM AIR, RESPIRATIONS ARE EVEN AND UNLABORED. NO C/O PAIN. SKIN IS INTACT. INCONTINENT BOWEL AND BLADDER. IV SITE RFA 22G RUNNING NS AT 100. WITH RIGHT UPPER CHEST TUNNEL CATH FOR DIALYSIS. SAFETY MEASURES IN PLACE, CALL LIGHT WITHIN REACH. WILL CONTINUE TO MONITOR.
--- NOTE | 2019-12-22 08:15 | NUR ---
LAB CALLED FOR CRITICAL LOW HGB 6.6. DR. HERNANDEZ NOTIFIED. ORDERED TO TRANSFUSE 1 UNIT PRBC
--- NOTE | 2019-12-22 08:39 | NUR ---
TORI FRAIRE CALLED FOR CONDITION UPDATE ([phone]).
[2019-12-22] MEDS ORDERED: bisacodyL 10 MG SUPP RC PRN (09:00)
--- NOTE | 2019-12-22 09:00 | NUR ---
PERICARE AND SKIN ASSESSMENT DONE. SKIN IS INTACT WITH BLANCHABLE REDNESS ON SACRUM. REPOSITIONED PT
--- NOTE | 2019-12-22 09:15 | NUR ---
TELEPHONE CONSENT FOR BLOOD TRANSFUSION OBTAINED FROM PT'S SON NAPOLEON TOBIAS. VERIFIED BY 2 NURSES
--- NOTE | 2019-12-22 09:16 | NUR ---
PATIENT HAS BEEN SCREENED AND CATEGORIZED HIGH NUTRITION RISK. PATIENT WILL BE SEEN WITHIN 1-2 DAYS OF ADMISSION. 12/22/2019-12/23/[address]
[2019-12-22] MEDS ORDERED: oxyCODONE/APAP 5/325 MG 1 TAB TAB PO PRN (10:35)
[2019-12-22] MEDS ORDERED: NITROGLYCERIN 0.4 MG TAB SL PRN (10:35)
[2019-12-22] MEDS ORDERED: CALCIUM CARBONATE 500 MG TAB PO PRN (10:35)
[2019-12-22] MEDS ORDERED: LORazepam 0.5 MG TAB PO PRN (10:35)
--- NOTE | 2019-12-22 10:50 | NUR ---
BLOOD TRANSFUSION STARTED. BLOOD PRODUCT AND PT ID VERIFIED BY 2 NURSES
[2019-12-22] MEDS: ESCITALOPRAM 20 MG TAB PO SCH (11:01)
--- NOTE | 2019-12-22 11:21 | NUR ---
DR VEGA, HLA PAGED AND CALLED BACK, NOTIFIED OF PT'S ADMISSION TO ICU AFTER HYPOTENSION AND SYNCOPAL EPISODE DURING DIALYSIS YESTERDAY. NO ORDERS AT THIS TIME.
--- NOTE | 2019-12-22 12:05 | NUR ---
12/22/2019 RD INITIAL ASSESSMENT COMPLETED PLEASE REFER TO NUTRITION ASSESSMENT UNDER CARE ACTIVITY FOR ESTIMATED NUTRITIONAL NEEDS. RD RECOMMENDATIONS: 1. CONTINUE RENAL DIET TOLERATED. 2. CONSIDER ORDERING SWALLOW EVAL IF PT HAS ANY CHEWING/SWALLOWING DIFFICULTIES. 3. RECOMMEND ADDING NEPRO BID TO OPTIMIZE NUTRITION INTAKE. 4. IF PT WILL NEED NUTRITION SUPPORT, CONSIDER NEPRO AT GOAL RATE OF 45 ML/HR, WHICH IS ADEQUATE IN MEETING 100% OF ESTIMATED NUTRITION NEEDS. 5. RD WILL F/U 2-3 DAYS; HIGH RISK. NAPOLEON PARRA, RD
--- NOTE | 2019-12-22 12:45 | NUR ---
IV ON LAC 22G INFILTRATED. REMOVED WITH LUMEN INTACT. REINSERTED IV ON L UPPER ARM 22G
--- NOTE | 2019-12-22 13:15 | NUR ---
BLOOD TRANSFUSION DONE. NO ADVERSE REACTIONS NOTED. V/S WNL
--- NOTE | 2019-12-22 13:32 | NUR ---
DISCHARGE PLANNING: THIS IS AN 84 Y/O MALE PATIENT FROM [facility], WHO WAS BIBA DUE TO EMPHYSEMA, PROSTATE CA, CVA, PACEMAKER, ESRD ON HD. INITIAL DIAGNOSIS OF HYPOTENSION, SYNCOPE AND ELEVATED TROPONIN. CURRENT LABS INCLUDE WBC 3.6, H/H 6.6/21.4, NA/K 138/4.5, BUN/CREA 13/2.5, GGT 750 AND TROPS 0.416. ON ROCEPHIN, LASIX PO. CXR ON ADMISSION SHOWED TRACE LEFT BASILAR SCARRING/ATELECTASIS. CARDIO, NEPHRO, PULMO AND GI CONSULTS IN PLACE. DC PLAN BACK TO [facility] ONCE STABLE. Addendum: 12/25/19 at 1520 by Debbie Mancilla CM FOR EGD/COLONOSCOPY WITH DR. TUCKER Addendum: 12/26/19 at 1335 by Debbie Mancilla CM S/P EGD/COLONOSCOPY 12/25/[address] TUCKER - REVEALED LARGE AMPULLARY/DUODENAL POLYP. GI RECOMMENDED HIGHER LEVEL OF CARE. RECEIVED A CALL FROM DR. TUCKER, STATING THAT PATIENT NEEDS TO BE TRANSFERRED TO [facility]. PER DR. TUCKER, HE SPOKE TO DR. LIZBETH CAMERON AT [facility] AND IS WILLING TO ACCEPT THE PATIENT. HE STATED HE SPOKE TO THE PATIENT AND THE PATIENT AGREED HOWEVER MENTIONED HOSPICE WELL. I TOLD HIM THAT I WILL REACH OUT TO THE PATIENT'S SON AND DISCUSS PLAN IF THEY WANT TO MOVE FORWARD WITH THE PROCEDURE. DR. TUCKER ALSO REQUESTED TO SEND PICTURES OF THE COLONOSCOPY. CONTACTED HAILEE OF GI LAB IF THEY CAN UPLOAD THE PICTURES TO [facility]'S WEBSITE. HAILEE STATED THAT SHE DOES NOT THINK IT'S POSSIBLE BECAUSE IT IS NOT EVEN CONNECTED WITH [facility] [employer]. DR. CESPEDES MADE AWARE OF DR. TUCKER'S RECOMMENDATIONS. PER DR. CESPEDES WILL CONSULT COLORECTAL SURGEON AND WILL GO FROM THERE. CONTACTED PATIENT'S SON NAPOLEON TOBIAS AND DISCUSSED PLAN WITH HIM. HE STATED PATIENT WANTED TO MOVE FORWARD WITH THE PROCEDURE AND PREFERS SOME PLACE CLOSER TO HOME ([place]). HE STATED THAT HE SPOKE TO DR. TUCKER REGARDING THE PLAN. I ALSO MENTIONED TO HIM REGARDING HOSPICE. HE STATED THE PATIENT WANTED THE PROCEDURE FIRST AND WILL GO FROM THERE. DR. CESPEDES MADE AWARE. Addendum: 12/26/19 at 1447 by Felicia Menendez CM DC FLIGHT CONTROLS ENGINEER: SET [facility] WILL CALL TRANSPORTATION FOR PATIENT WITH [facility]. Addendum: 12/26/19 at 1532 by Debbie Mancilla CM CONTACTED [facility] TO FOLLOW UP WITH REFERRAL. PER DI THEY ARE STILL WORKING ON IT. Addendum: 12/27/19 at 0837 by Debbie Mancilla CM CONTACTED [facility] AT [phone] TO FOLLOW UP ON THE STATUS OF THE REFERRAL. ABLE TO SPEAK TO E[facility]. PER ELLIOT THEY ARE STILL WORKING ON IT, HOWEVER THEY ARE REQUIRING COVID TESTING 72 HOURS PRIOR TO ARRIVAL TO THEIR FACILITY AND THE ONE THAT PATIENT HAS IS PAST 72 HOURS. PER ELLIOT SHE WILL ADVISE WHEN WHEN TO COLLECT, SHE STATED SHE DOES NOT WANT US TO COLLECT TODAY AND END UP NOT HAVING A BED. SHE ALSO MENTIONED THAT THEY OR DR. LIZBETH GUZMAN HAVE REACHED OUT TO INFORM THAT HE S ABLE TO ACCEPT THE PATIENT BUT SHE WILL MAKE SURE WILL CONTACT HIM TODAY. [facility] IS REACHING OUT TO HOSPITALIST WELL, BUT HAVE NOT HEARD BACK YET. PROVIDED HER OF DR. TUCKER AND DR. YAP'S PHONE NUMBERS FOR DOC TO DOC CALLS IF TRANSFER GOING TO HAPPEN TODAY. Addendum: 12/27/19 at 1224 by Debbie Mancilla CM RECEIVED A CALL FROM SAKINA OF [facility] AT [phone] STATING THAT THEY HAVE AN ACCEPTING GI DOC DR. PHILLIPS, STILL WAITING FOR HOSPITALIST TO ACCEPT. PER SAKINA SHE WILL SEND ME A TRANSFER BACK AGREEMENT FORM. PROVIDED HER WITH OUT FAX NUMBER. SHE STATED FINANCIAL ASPECT OF THE TRANSFER HAD BEEN CLEARED BY THEIR BUSINESS OFFICE. SHE STATED SHE WILL LET ME KNOW IF THEY HAVE AN ACCEPTING HOSPITALIST AND BED AVAILABILITY. CONTACTED DR. TUCKER TO DISCUSS HIS PLAN FOR THIS PATIENT. IF HE WANTS [facility] O DO THE PROCEDURE AND BRING THE PATIENT BACK OR TO [facility] TRANSFER. PER DR. TUCKER, TO TRANSFER PATIENT TO [facility], SINCE PATIENT AND HIS SON PREFERS CLOSER TO HOME ([facility]). INQUIRY SENT TO [facility] AT [phone]. WILL FOLLOW UP. Addendum: 12/27/19 at 1527 by Debbie Mancilla CM RECEIVED A CALL FROM SHIREEN AT [facility] STATING THAT OUR FAX NUMBER IS ALWAYS BUSY. INFORMED HER THAT THAT'S THE ONLY FAX NUMBER WE HAVE. SHE STATED SHE WILL FAX IT OVER AGAIN. TRANSFER BACK AGREEMENT FORM RECEIVED, SIGNED BY HARRIS SAWANT AND FAXED IT BACK TO [facility]. RECEIVED A CALL BACK FROM SHIREEN OF [facility], TO CONFIRM THAT THEY RECEIVED THE TRANSFER BACK AGREEMENT. PER SHIREEN THEY NEED THE NAME AND CELLPHONE NUMBER OF THE ACCEPTING DOCTOR ONCE THE PATIENT IS READY TO BE TRANSFER BACK. INFORMED HER THAT THE ATTENDING ROTATES AND I DO NOT KNOW YET WHO WILL BE THE DAY CARE AIDE THAT DAY. I TOLD HER THAT I WILL CHECK WITH THE ONE ROUNDING TODAY AND WILL GIVE HER A CALL BACK. DR YAP MADE AWARE AND STATED TO PUT HIS NAME AND CONTACT INFO. PROVIDED DR. YAP'S PHONE NUMBER TO SHIREEN. WILL FOLLOW UP. Addendum: 12/27/19 at 1557 by Debbie Mancilla CM SPOKE TO SHIREEN AT [facility]. SHIREEN CONFIRMED THAT THEY RECEIVED THE TRANSFER BACK AGREEMENT FORM AND JUST WAITING FOR BED AVAILABILITY. SHE STATED SHE WILL FOLLOW UP WITH ME TOMORROW. INFORMED HER TO CONTACT RIG SUPERINTENDENT [phone] AND UNIT [phone]. CONTACTED [facility] NO ANSWER. LEFT VOICEMAIL TO CANCEL REFERRAL DUE TO GI WANTED THE PATIENT TO TRANSFER THE PATIENT TO HIGHER LEVEL INSTEAD OF JUST DOING THE PROCEDURE AND BRING THE PATIENT BACK. Addendum: 12/28/19 at 0838 by Debbie Mancilla FOLLOWED UP WITH [facility] BL[facility], ABLE TO SPEAK TO SHIREEN. PER SHIREEN, ACCEPTING GI IS CELIA ENRIQUEZ AND HOSPITALIST IS TRAE ALMEIDA. SHE STATED THEY DO NOT HAVE A BED AVAILABLE AT THIS TIME AND WILL CALL SOON ONE [employer]. WILL FOLLOW UP. Addendum: 12/28/19 at 1410 by Og Fan SS MERON CONTACTED SHIREEN AT [facility] [phone] REGARDING PATIENT'S TRANSFER. PER SHIREEN, PHYSICIAN IS ABLE TO DO PROCEDURE ON TUESDAY. SHIREEN STATED THAT SHE DID NOT HAVE A BED OR ATTENDING PHYSICIAN BUT WILL CONTACT RIG SUPERINTENDENT WITH INFORMATION. SHIREEN STATED THAT PATIENT WILL BE TRANSFERRED ON MORNING OF 12/29/2019. MERON CONTACTED KARLOS FROM [facility] TO CONFIRM THAT WILL CALL IS STILL ACTIVE. KARLOS STATED THAT SHE WILL NOTE THAT TRANSPORTATION IS EXPECTED FOR TOMORROW. NO FURTHER NEEDS IDENTIFIED.
[2019-12-22] MEDS ORDERED: LACTULOSE 20 GM/30 ML UDC PO SCH (14:30)
--- NOTE | 2019-12-22 15:05 | NUR ---
REPORT GIVEN TO [facility] ZAY HEBERT
--- NOTE | 2019-12-22 15:06 | NUR ---
RECEIVED REPORT FROM ICU NURSE FOR CONTINUITY OF CARE. AWAITING PATIENTS ARRIVAL
--- NOTE | 2019-12-22 15:25 | NUR ---
RECEIVED PT AT THIS TIME. PT IS ABLE TO COMMUNICATE, IN NO DISTRESS, EYES ARE CLOSED HOWEVER HE RESPONDS TO NAME, ABLE TO STATE HIS NAME AND WHERE HE LIVES, HE WAS RE-ORIENTED TO PLACE AND TIME. DENIES ANY DISTRESS. V/S: 98.1, 63, 16, 120/70, 97% RA PAIN 0/10. PT HAS IV ACCESS TO LEFT UPPER ARM THAT IS INTACT AND PATENT. NO REDNESS SKIN APPEARS INTACT. CAME WITH ALL BELONGINGS THAT APPEAR TO BE CLOTHES AND LIFT STRAPS. WILL CONTINUE WITH POC. PT WAS ORIENTED TO ROOM, REMOTE AND CALL LIGHT. SAFETY MEASURES IN PLACE.
--- NOTE | 2019-12-22 16:50 | NUR ---
PT IS RESTING IN BED WITH EYES CLOSED, IN NO DISTRESS. V/S: 98.8, 70, 18, 111/65, 99% RA PAIN 0/10 TOLERATED IVPB WITH NO REACTION. CALL LIGHT WITHIN REACH, ALL NEEDS MET.
[2019-12-22] MEDS ORDERED: FUROSEMIDE 20 MG TAB PO SCH (17:00)
--- NOTE | 2019-12-22 17:30 | NUR ---
PT PICKED UP BY RADIOLOGY FOR CT AT THIS TIME.
--- NOTE | 2019-12-22 18:48 | NUR ---
PT RETURNED FROM RADIOLOGY AT 1750 PT IS IN NO DISTRESS. LAB WAS UNABLE TO OBTAIN BLOOD SAMPLE, ATTEMPTED TO GET FROM IV SITE AND UNSUCCESSFUL. DR. HERNANDEZ NOTIFIED. WILL TRY TO GET ER TO ASSIST. PT GIVE ZOFRAN DUE TO C/O NAUSEA AND BEING UNABLE TO EAT. WILL ENDORSE TO LINE CONTROLLER RN TO FOLLOW UP WITH LABS
[2019-12-22] MEDS: ONDANSETRON 4 MG/2 ML VIAL IVP PRN (18:53)
--- NOTE | 2019-12-22 19:15 | NUR ---
REPORT GIVEN TO APPOINTMENT SETTER RN FOR CONTINUITY OF CARE. PT IS STABLE RECEIVING IVF WITH NO PROBLEMS. CALLED ER AND ER WILL BE COMING TO ATTEMPT TO DRAW LAB, ENDORSED TO APPOINTMENT SETTER TO FOLLOW UP.
--- NOTE | 2019-12-22 19:30 | NUR ---
RECEIVED BEDSIDE REPORT FROM DAY RN REGARDING THE PT FOR CONTINUITY OF CARE. PATIENT A/A/OX3.PT NOT IN ANY DISTRESS. NO COMPLAIN AT THIS TIME. DENIES CHEST PAIN, SOB AND PALPITATIONS. SINUS BRADYCARDIA ON METER RECORD CLERK, HR-59. IVF INFUSING ORDERED.INSTRUCTED PT TO CALL FOR ASSISTANCE AT ALL TIMES. PT VERBALIZED UNDERSTANDING WITH THE POC. CALL LIGHT WITHIN REACH. WILL CONTINUE POC AND MONITORING.
[2019-12-22] MEDS: ATORVASTATIN 20 MG TAB PO SCH (20:39)
[2019-12-22] MEDS: LACTULOSE 20 GM/30 ML UDC PO SCH (20:39)
[2019-12-22] MEDS: carvediloL 6.25 MG TAB PO SCH (20:40)
[2019-12-22] MEDS: ACETAMINOPHEN 325 MG TAB PO PRN (20:55)
[2019-12-22] MEDS ORDERED: DOCUSATE SODIUM 100 MG GELCAP PO SCH (21:00)
--- NOTE | 2019-12-22 21:30 | NUR ---
ADMINISTERED ALL THE SCHEDULED MEDICATIONS AND PATIENT TOLERATED IT WELL. NO ADVERSE REACTION NOTED
[2019-12-23] VITALS: BP 119/77
--- NOTE | 2019-12-23 | NUR ---
PATIENT VITAL SIGNS STABLE, AFEBRILE, SATING 98% ON RA. SINUS ARRHYTHMIA ON NETWORK CONTROL OPERATORS SUPERVISOR, HR-67. NO COMPLAIN OF PAIN AT THIS TIME.CALL LIGHT WITHIN REACH.
--- NOTE | 2019-12-23 02:00 | NUR ---
PATIENT COMPLAINING OF GENERALIZED PAIN. PRN MORPHINE GIVEN ORDERED. WILL RE ASSESSED PATIENT PAIN LATER. CALL LIGHT WITHIN REACH.
[2019-12-23] MEDS: MORPHINE SULFATE 2 MG/ML SYR IVP PRN ×2 (02:05→21:41)
[2019-12-23 04:00] VITALS: BP 120/47
--- NOTE | 2019-12-23 04:00 | NUR ---
PATIENT VITAL SIGNS STABLE, AFEBRILE, SATING 96% ON RA. SINUS BRADYCARDIA ON OB SCRUB TECH, HR-54. NO COMPLAIN OF PAIN AT THIS TIME.CALL LIGHT WITHIN REACH.
--- NOTE | 2019-12-23 06:00 | NUR ---
NO ACUTE EVENT THROUGHOUT THE NIGHT. NO SIGN AND SYMPTOMS OF DISTRESS NOTED. NO COMPLAIN AT THIS TIME.ALL NEEDS ATTENDED. CALL LIGHT WITHIN REACH. WILL ENDORSE THE PT TO THE ONCOMING RN FOR CONTINUITY OF CARE.
[2019-12-23 06:23] LABS: BASOPHILS % (AUTO) 0.8 % (0.0-2.0); EOSINOPHILS # (AUTO) 0.2 K/uL (0-0.4); EOSINOPHILS % (AUTO) 3.3 % (0.0-4.0); HEMATOCRIT 30.7 % (36-52); HEMOGLOBIN 10.1 g/dL (12.0-18.0); LYMPHOCYTES # (AUTO) 0.7 K/uL (2.0-11.5); LYMPHOCYTES % (AUTO) 16.2 % (20.5-51.1); MEAN CORPUSCULAR HEMOGLOBIN 32 pg (27-31); MEAN CORPUSCULAR HGB CONC 33 g/dL (33-37); MEAN CORPUSCULAR VOLUME 97.8 fL (80-94); MONOCYTES # (AUTO) 0.4 K/uL (0.8-1.0); MONOCYTES % (AUTO) 9.6 % (1.7-9.3); NEUTROPHILS # (AUTO) 3.2 K/uL (1.8-7.7); NEUTROPHILS % (AUTO) 70.1 % (42.2-75.2); PLATELET COUNT (AUTO) 136 K/uL (140-450); RED BLOOD CELL COUNT(AUTO) 3.14 MIL/uL (4.20-6.10); RED CELL DISTRIBUTION WIDTH 18.6 % (11.6-13.7); WHITE BLOOD COUNT (AUTO) 4.6 K/uL (4.8-10.8)
[2019-12-23 06:43] LABS: ANION GAP 12.9 (8-16); CARBON DIOXIDE 23.6 mmol/L (21-32); CHLORIDE 106 mmol/L (98-107); GLUCOSE 82 mg/dL (74-106); POTASSIUM 3.5 mmol/L (3.5-5.1); SODIUM SERUM 139 mmol/L (136-145); UREA NITROGEN, BLOOD 15 mg/dL (7-18)
[2019-12-23 06:48] LABS: PHOSPHORUS 3.2 mg/dL (2.5-4.9)
--- NOTE | 2019-12-23 07:17 | NUR ---
RECEIVED A PHONE CALL FROM THE ADI SALAZAR AND STATED THAT THE PT TROPONIN IS 0.241. ENDORSED IT TO THE ONCOMING RN ALLISON.
--- NOTE | 2019-12-23 07:34 | NUR ---
PT STABLE. ENDORSED THE PT TO THE ONCOMING DAY RN ALLISON FOR CONTINUITY OF CARE. SIGNING OFF.
--- NOTE | 2019-12-23 07:35 | NUR ---
RECEIVED REPORT FROM NIGHT RN FOR CONTINUITY OF CARE. CC: SYNCOPE AND HYPOTENSION. ADMITTING DX: HYPOTENSION, ELEVATED TROPONIN. PATIENT ASLEEP IN BED. PT IS NONAMBULATORY. AOX4, ABLE TO VERBALIZE NEEDS. O2 SAT 98% ON ROOM AIR, RESPIRATIONS ARE EVEN AND UNLABORED. NO C/O PAIN. SKIN IS INTACT. INCONTINENT BOWEL AND BLADDER. IV SITE TIANNA 22G RUNNING NS AT 40. WITH RIGHT UPPER CHEST TUNNEL CATH FOR DIALYSIS. SAFETY MEASURES IN PLACE, CALL LIGHT WITHIN REACH. WILL CONTINUE TO MONITOR.
[2019-12-23 08:00] VITALS: BP 131/75
[2019-12-23] MEDS ORDERED: FERROUS SULFATE 325 MG TABEC PO SCH (09:00)
[2019-12-23 09:07] LABS: FOLIC ACID > 20.00 ng/mL (>3.0)
[2019-12-23] MEDS: ESCITALOPRAM 20 MG TAB PO SCH (09:28)
[2019-12-23] MEDS: PANTOPRAZOLE 40 MG TABEC PO SCH (09:28)
[2019-12-23] MEDS: LACTULOSE 20 GM/30 ML UDC PO SCH ×2 (09:28→21:00)
[2019-12-23] MEDS: ISOSORBIDE DINITRATE 20 MG TAB PO SCH (09:28)
[2019-12-23] MEDS: VIT-B COMP/VIT-C/FOLIC ACID 1 TAB PO SCH (09:28)
[2019-12-23] MEDS: carvediloL 6.25 MG TAB PO SCH ×2 (09:28→21:36)
[2019-12-23] MEDS: MULTIVITAMIN 1 TAB PO SCH (09:28)
--- NOTE | 2019-12-23 09:30 | NUR ---
DUE MORNING MED GIVEN. TOLERATED PO MEDS WELL
--- NOTE | 2019-12-23 10:15 | NUR ---
PERICARE DONE. WITH SOFT DARK GREEN BM. REPOSITIONED PT
[2019-12-23 12:00] VITALS: BP 124/68
--- NOTE | 2019-12-23 12:25 | NUR ---
PT IN BED. EATING LUNCH WITH ASSISTANCE OF CREW CAR DRIVER. MINIMAL INTAKE. PT STATED HAVING NO APPETITE
--- NOTE | 2019-12-23 15:09 | NUR ---
PT ASLEEP IN BED. FLACC 0, NO SOB
[2019-12-23 15:11] LABS: FERRITIN 2748 ng/mL (30 - 400); TRANSFERRIN 81 mg/dL (200 - 370)
[2019-12-23 16:00] VITALS: BP 107/68
[2019-12-23] MEDS: HYDROcodone/APAP 5/325 MG 1 TAB TAB PO PRN (16:00)
--- NOTE | 2019-12-23 18:45 | NUR ---
WILL ENDORSE TO NEXT SHIFT FOR CONTINUITY OF CARE. IN STABLE CONDITION
--- NOTE | 2019-12-23 20:30 | NUR ---
RECEIVED PATIENT IN BED. PT AWAKE AND ALERT. PT WITH PERIODS OF FORGETFULNESS BUT IS EASILY REORIENTED. NO SOB AT THIS, DENIES CHEST PAIN. PATIENT WITH LEFT SIDED HEMIPARESIS. FALL PRECAUTIONS IN PLACE. RIGHT CHEST TUNNELED CATH NOTED, DRESSING CDI. LEFT FOOT EDEMA NOTED. PT DENIES CHEST PAIN. PT ON TELE MONITORING. BED LOWERED WITH CALL LIGHT WITHIN REACH. WILL CONTINUE TO MONITOR
[2019-12-23 21:31] VITALS: BP 124/81
[2019-12-23] MEDS: ATORVASTATIN 20 MG TAB PO SCH (21:35)
--- NOTE | 2019-12-23 21:36 | NUR ---
ADMINISTERED SCHEDULED MEDS. PT TOLERATED WELL
--- NOTE | 2019-12-23 22:30 | NUR ---
PT EVALUATED BY DR GALLARDO
--- NOTE | 2019-12-23 23:05 | NUR ---
PT TURNED AND REPOSITIONED FOR COMFORT
[2019-12-24] VITALS: BP 109/62
--- NOTE | 2019-12-24 02:13 | NUR ---
PT ASLEEP IN BED. NO S/S OF DISTRESS NOTED
[2019-12-24 04:00] VITALS: BP 121/74
[2019-12-24 05:30] LABS: BASOPHILS % (AUTO) 0.5 % (0.0-2.0); EOSINOPHILS # (AUTO) 0.3 K/uL (0-0.4); EOSINOPHILS % (AUTO) 4.8 % (0.0-4.0); HEMATOCRIT 28.7 % (36-52); HEMOGLOBIN 9.4 g/dL (12.0-18.0); LYMPHOCYTES # (AUTO) 0.5 K/uL (2.0-11.5); LYMPHOCYTES % (AUTO) 9.5 % (20.5-51.1); MEAN CORPUSCULAR HEMOGLOBIN 32 pg (27-31); MEAN CORPUSCULAR HGB CONC 33 g/dL (33-37); MEAN CORPUSCULAR VOLUME 97.7 fL (80-94); MONOCYTES # (AUTO) 0.4 K/uL (0.8-1.0); MONOCYTES % (AUTO) 7.7 % (1.7-9.3); NEUTROPHILS # (AUTO) 4.2 K/uL (1.8-7.7); NEUTROPHILS % (AUTO) 77.5 % (42.2-75.2); PLATELET COUNT (AUTO) 181 K/uL (140-450); RED BLOOD CELL COUNT(AUTO) 2.94 MIL/uL (4.20-6.10); RED CELL DISTRIBUTION WIDTH 17.7 % (11.6-13.7); WHITE BLOOD COUNT (AUTO) 5.4 K/uL (4.8-10.8)
[2019-12-24 06:05] LABS: ANION GAP 11.3 (8-16); CARBON DIOXIDE 25.9 mmol/L (21-32); CHLORIDE 106 mmol/L (98-107); CREATININE 3.2 mg/dL (0.6-1.3); GLUCOSE 88 mg/dL (74-106); POTASSIUM 3.2 mmol/L (3.5-5.1); SODIUM SERUM 140 mmol/L (136-145); UREA NITROGEN, BLOOD 15 mg/dL (7-18)
[2019-12-24 06:09] LABS: MAGNESIUM 2.5 mg/dL (1.8-2.4); PHOSPHORUS 3.5 mg/dL (2.5-4.9)
--- NOTE | 2019-12-24 07:30 | NUR ---
PT ENDORSED TO AM NURSE. PT ENDORSED IN STABLE CONDITION
--- NOTE | 2019-12-24 07:31 | NUR ---
RECEIVED ENDORSEMENT FROM BREAKFAST AND ROOM ATTENDANT, AWAKE,ALERT, ORIENTEDX2, BREATHING SPONTANEOUSLY AT ROOM AIR, NOT IN DISTRESS NOTED. WITH IV CANNULA 22 AT LEFT FOOT ON SALINE LOCK NOTED. WITH RT UPPER CHEST TUNNELED CATHETER FOR HEMODIALYSIS. SAFETY MEASURES IN PLACE AND CONTINUE MONITOR.
[2019-12-24 08:00] VITALS: BP 114/62
[2019-12-24] MEDS: LACTULOSE 20 GM/30 ML UDC PO SCH ×2 (08:40→17:31)
[2019-12-24] MEDS: carvediloL 6.25 MG TAB PO SCH ×2 (08:46→20:25)
[2019-12-24] MEDS: PANTOPRAZOLE 40 MG TABEC PO SCH (08:47)
[2019-12-24] MEDS: ESCITALOPRAM 20 MG TAB PO SCH (08:48)
[2019-12-24] MEDS: ISOSORBIDE DINITRATE 20 MG TAB PO SCH (08:48)
[2019-12-24] MEDS: VIT-B COMP/VIT-C/FOLIC ACID 1 TAB PO SCH (08:49)
[2019-12-24] MEDS: MULTIVITAMIN 1 TAB PO SCH (08:49)
--- NOTE | 2019-12-24 09:01 | NUR ---
FULLY AWAKE AND ALERT, DUE MEDICATION GIVEN
[2019-12-24] MEDS: HYDROcodone/APAP 5/325 MG 1 TAB TAB PO PRN (09:18)
--- NOTE | 2019-12-24 09:18 | NUR ---
COMPLAINED OF PAIN AT BOTH HEEL, 08/14. [id number] AND ELEVATED WITH 1 PILLOW DONE AND NORCO 1 TAB ORDERED PRN GIVEN
[2019-12-24] MEDS: ONDANSETRON 4 MG/2 ML VIAL IVP PRN (09:51)
--- NOTE | 2019-12-24 09:58 | NUR ---
APPARENTLY NAUSEATED AND MILD SOB, HEAD OF BED PLACE ON UPRIGHT POSITION, O2 SAT-96%. ZOFRAN IV ORDERED PRN GIVEN. O2 AT 2L/MIN VIA NC ADMINISTERED. CONTINUE MONITOR
--- NOTE | 2019-12-24 10:38 | NUR ---
POTASSIUM LEVEL-3.2, DR. CESPEDES INFORMED THRU TEXT MESSAGES, REPLIED AND ACCORDING TO HIM NO NEED FOR REPLACEMENT FOR NOW BECAUSE PATIENT ON HEMODIALYSIS, CONTINUE MONITOR.
--- NOTE | 2019-12-24 11:07 | NUR ---
MORNING CARE DONE BY HEAVY MACHINERY ASSEMBLER, APPARENTLY ASLEEP, NOT IN DISTRESS NOTED.
[2019-12-24 12:00] VITALS: BP 96/58
--- NOTE | 2019-12-24 12:17 | NUR ---
DR. CESPEDES ORDERED FOR CT ABDOMEN/PELVIS WITH CONTRAST AND WILL DO IF THE PATIENT HAD A SCHEDULE FOR THE DIALYSIS AFTER. RADIOLOGY DEPARTMENT CALLED, MADE AWARE THAT THE PATIENT HAD AN IV ACCESS AT LEFT FOOT G22, CONSENT NOT YET SIGN.
--- NOTE | 2019-12-24 12:54 | NUR ---
RE-POSITIONED TO LEFT SIDE LYING POSITION, KEPT COMFORTABLE TO BED.
--- NOTE | 2019-12-24 14:28 | NUR ---
SOCIAL WORK NOTE: Patient's Orientation Unable To Assess Information Provided By NAPOLEON TOBIAS - SON Comments SW WAS UNABLE TO MEET PATIENT AT BEDSIDE DUE TO MEDICAL CONDITION. SW COMPLETED ASSESSMENT WITH PATIENT'S SON, NAPOLEON. Labor Trainer, Realtionship and Phone Number NAPOLEON TOBIAS SON [phone] Healthcare Power of Felt Strip Finisher No Does Patient Have a POLST No Identifying Problems No Social Work Triggers Is A Social Work Consult Needed No Mandate Report Filed No Explanation Of Identifying Problems PATIENT IS AN 84-YEAR-OLD MALE ADMITTED FOR HYPOTENSION AND SYNCOPE. PATIENT'S PMHX IS UNKNOWN. PATIENT'S SON REPORTED NO CURRENT HISTORY OF SUBSTANCE ABUSE OR MENTAL HEALTH. PATIENT IS CURRENTLY A SKILLED PATIENT AT [facility]. Admitted From Home Fci Facility [facility] - [phone] Pre-Admission Level Of Functioning Status Total Care Prior Resources/Services Used In Last 12 Months No Prior Resources Used SNF Rehab/Skilled Prior Resources/Service Comments PATIENT IS SKILLED AND ON A BED HOLD. Prior DME Wheelchair Dialysis Hemodialysis Name And Phone Number of Dialysis Facility [facility] ESRD Outpatient Days F ESRD Outpatient Time 1330 Patient Had Caregiver No Home Support No Caregiver Issues Financial Issues No Known Financial Issue Referral To The Financial Counselor Needed No Factors/Needs No D/C Needs Identified Pt/Rep Participated In Discharge Plan Yes Patient/Family Agress With Discharge Plan Yes Discharge Plan Comments TENTATIVE DISCHARGE PLAN IS FOR PATIENT TO RETURN TO [facility]. CT Plan Status Initiated
--- NOTE | 2019-12-24 14:36 | NUR ---
DR. CESPEDES CONTACTED THRU PHONE AND TALKED TO HIM REGARDING THE PATIENT STATUS, IV CANNULA G22 AT LEFT FOOT, RT ARM RESERVED FOR AV FISTULA PLACEMENT AND WITH LEFT ARM WEAKNESS NOTED. APPARENTLY HE TALKED TO DR. TUCKER IF WILL PROCEED TO CT ABDOMEN WITHOUT CONTRAST. AWAITING FOR ORDER.
--- NOTE | 2019-12-24 14:56 | NUR ---
SPOKE WITH DR. VEGA, NEPHROLOGY OVER THE PHONE REGARDING THE PATIENT STATUS, IF WE CAN USE THE RT CHEST TUNNELED CATH FOR IV CONTRAST, ACCORDING TO HIM CANNOT BE USE FOR IV CONTRAST. CAN USE THE RIGHT ARM FOR IV CANNULA, ACCORDING TO HIM THEY WILL NO LONGER USE FOR AV FISTULA PLACEMENT, NOTED. CHARGE NURSE MADE AWARE.
[2019-12-24] MEDS ORDERED: MAGNESIUM CITRATE 300 ML BTL PO SCH (15:00)
--- NOTE | 2019-12-24 15:29 | NUR ---
PATIENT'S SON MR NAPOLEON TOBIAS CONTACTED AND GET A CONSENT OF COLONOSCOPY, EGD AND PEG PLACEMENT, AGREED TO THE SAID PROCEDURE, VERIFIED BY BY ANOTHER RN.
--- NOTE | 2019-12-24 15:38 | NUR ---
FNS CONSULT FOR 3 DAY CALORIE COUNT RECEIVED. UNABLE TO COMPLETE CALORIE COUNT DUE TO PATIENT BEING NPO TOMORROW 12/24/19.
--- NOTE | 2019-12-24 15:42 | NUR ---
12/24/19 RD FOLLOW UP COMPLETED PLEASE REFER TO NUTRITION ASSESSMENT UNDER CARE ACTIVITY FOR ESTIMATED NUTRITIONAL NEEDS. 1. CONTINUE CLEAR LIQUIDS PER MD 2. FNS CONSULT FOR CALORIE COUNT X 3 DAYS NOT APPROPRIATE DUE TO PATIENT BEING NPO TOMORROW 12/24/2019 3. RECOMMEND ADDING ORAL NUTRITIONAL SUPPLEMENT 4. CONSIDER ENTERAL NUTRITION IF PATIENT CONTINUES TO HAVE DECREASED PO INTAKE 5. RD WILL F/U 2-3 DAYS; HIGH RISK. ALBA ARTEAGA RD
--- NOTE | 2019-12-24 15:45 | NUR ---
L[place]ON[place] NOTIFIED FOR HEMODIALYSIS ORDERED FOR TOMORROW, RN ASSIGNED MADE AWARE.
--- NOTE | 2019-12-24 15:55 | NUR ---
CT DEPARTMENT NOTIFIED THAT THE ORDER OF CT SCAN ABDOMEN CHANGED TO WITHOUT CONTRAST.
[2019-12-24 16:00] VITALS: BP 118/67
--- NOTE | 2019-12-24 16:30 | NUR ---
HEMODIALYSIS NURSE INFORMED IN THE UNIT THAT THE PATIENT SCHEDULED FOR HD TOMORROW AT 0600H, CHARGE NURSE MADE AWARE.
[2019-12-24] MEDS ORDERED: LORazepam 2 MG/ML VIAL IM/IVP PRN (17:15)
[2019-12-24] MEDS: MORPHINE SULFATE 2 MG/ML SYR IVP PRN (17:28)
[2019-12-24] MEDS: SENNA 8.6 MG TAB PO SCH (17:31)
[2019-12-24] MEDS: POLYETHYLENE GLYCOL 17 GM/PKT PO SCH ×2 (17:32→20:26)
--- NOTE | 2019-12-24 17:37 | NUR ---
COMPLAINED OF CHEST PAIN 7/10 RADIATING TO THE BACK OF THE SHOULDER, ECG RHYTHM IN TELEMETRY, PACED. MORPHINE 2MF IV ORDERED PRN GIVEN. DR. SAINZ, CARDIOLOGY AT [facility] MADE AWARE. NO NEW ORDER MADE.
--- NOTE | 2019-12-24 17:41 | NUR ---
DUE MEDICATION GIVEN ORALLY, TOLERATED WELL.
--- NOTE | 2019-12-24 18:39 | NUR ---
METAL PRODUCTS VIEWER CAME AND CURING PRESS OPERATOR THE PT PER BED IN STABLE CONDITION FOR CT SCAN ABDOMEN
--- NOTE | 2019-12-24 19:28 | NUR ---
ENDORSED TO WARD AIDE IN STABLE CONDITION FOR CONTINUITY OF CARE Addendum: 12/24/19 at 2009 by Subhash Daly RN FOR COLONOSCOPY, EGD +PEG TOMORROW, NPO POST MIDNIGHT AND CONSENT SIGNED BY THE SON AND DR. TUCKER.
--- NOTE | 2019-12-24 19:29 | NUR ---
RECEIVED PATIENT IN STABLE CONDITION FROM AM SHIFT NURSE FOR CONTINUITY OF CARE. TELE PATIENT. AAOX2-3, ABLE TO MAKE NEEDS KNOWN. RESPIRATIONS EVEN, UNLABORED. CONTINUES ON O2 2L VIA NC, O2SAT 98%. SKIN WARM, DRY. SALINE LOCK TO LEFT FOOT 22G PATENT/INTACT. NO C/O PAIN. NO S/S ACUTE DISTRESS. PATIENT INCONTINENT OF B/B. PLAN OF CARE DISCUSSED WITH PATIENT. CALL LIGHT WITHIN REACH. SAFETY PRECAUTIONS IN PLACE.
[2019-12-24 20:00] VITALS: BP 136/75
--- NOTE | 2019-12-24 20:10 | NUR ---
ENCOURAGED PATIENT TO DRINK MIRALAX AND TO FINISH THE MAGNESIUM CITRATE. PATIENT STATED IT "GIVES ME HEARTBURN, I CAN'T DO IT". PROVIDED EDUCATION REGARDING RISKS AND BENEFITS OF COMPLETING MEDICATION REGIME BEFORE PROCEDURE TOMORROW. PATIENT VERBALIZED UNDERSTANDING BUT NEEDS REINFORCEMENT. WILL CONTINUE TO ENCOURAGE PATIENT TO FINISH DOSE. PATIENT IS IN NO DISTRESS. NO C/O PAIN. CALL LIGHT WITHIN REACH AT ALL TIMES.
[2019-12-24] MEDS: MIDODRINE 5 MG TAB PO SCH (20:25)
[2019-12-24] MEDS: ATORVASTATIN 20 MG TAB PO SCH (20:26)
--- NOTE | 2019-12-24 21:40 | NUR ---
DUE MEDS GIVEN. PROVIDED EDUCATION REGARDING PROCEDURES TOMORROW. PATIENT VERBALIZED UNDERSTANDING BUT NEEDS REINFORCEMENT. TURNED AND REPOSITIONED. INCONTINENT CARE RENDERED WITH HAM SAWYER AT BEDSIDE.
--- NOTE | 2019-12-24 23:15 | NUR ---
ENCOURAGED PATIENT TO FINISH HIS MEDICATION, PATIENT REFUSED X3. RISKS AND BENEFITS EXPLAINED. CALL LIGHT WITHIN REACH.
[2019-12-25] VITALS: BP 105/62
--- NOTE | 2019-12-25 01:01 | NUR ---
MADE ROUNDS. PATIENT IS RESTING COMFORTABLY IN BED. NO C/O PAIN. NO S/S ACUTE DISTRESS. CALL LIGHT WITHIN REACH. SAFETY PRECAUTIONS IN PLACE.
--- NOTE | 2019-12-25 03:02 | NUR ---
PATIENT IS SLEEPING WELL. NO S/S ACUTE DISTRESS. CONTINUES IN STABLE CONDITION. CALL LIGHT WITHIN REACH. SAFETY PRECAUTIONS IN PLACE.
[2019-12-25 04:00] VITALS: BP 99/55
[2019-12-25] MEDS ORDERED: SODIUM PHOSPHATE 118 ML ENEM RC SCH (04:25)
--- NOTE | 2019-12-25 05:04 | NUR ---
PATIENT RESTING COMFORTABLY IN BED. NO C/O PAIN. NO S/S ACUTE DISTRESS. INCONTINENT CARE RENDERED WITH KALSOMINER AT BEDSIDE. CALL LIGHT WITHIN REACH. SAFETY PRECAUTIONS IN PLACE.
[2019-12-25 05:30] LABS: BASOPHILS % (AUTO) 0.1 % (0.0-2.0); EOSINOPHILS # (AUTO) 0.3 K/uL (0-0.4); EOSINOPHILS % (AUTO) 6.9 % (0.0-4.0); HEMATOCRIT 28.4 % (36-52); HEMOGLOBIN 9.1 g/dL (12.0-18.0); LYMPHOCYTES # (AUTO) 0.5 K/uL (2.0-11.5); LYMPHOCYTES % (AUTO) 12.1 % (20.5-51.1); MEAN CORPUSCULAR HEMOGLOBIN 32 pg (27-31); MEAN CORPUSCULAR HGB CONC 32 g/dL (33-37); MEAN CORPUSCULAR VOLUME 98.7 fL (80-94); MONOCYTES # (AUTO) 0.4 K/uL (0.8-1.0); MONOCYTES % (AUTO) 9.2 % (1.7-9.3); NEUTROPHILS # (AUTO) 3.2 K/uL (1.8-7.7); NEUTROPHILS % (AUTO) 71.7 % (42.2-75.2); PLATELET COUNT (AUTO) 192 K/uL (140-450); RED BLOOD CELL COUNT(AUTO) 2.87 MIL/uL (4.20-6.10); RED CELL DISTRIBUTION WIDTH 17.9 % (11.6-13.7); WHITE BLOOD COUNT (AUTO) 4.5 K/uL (4.8-10.8)
[2019-12-25 05:58] LABS: ANION GAP 12.9 (8-16); CARBON DIOXIDE 27.4 mmol/L (21-32); CHLORIDE 106 mmol/L (98-107); CREATININE 3.5 mg/dL (0.6-1.3); GLUCOSE 90 mg/dL (74-106); POTASSIUM 3.3 mmol/L (3.5-5.1); SODIUM SERUM 143 mmol/L (136-145); UREA NITROGEN, BLOOD 18 mg/dL (7-18)
[2019-12-25 06:09] LABS: MAGNESIUM 2.5 mg/dL (1.8-2.4)
--- NOTE | 2019-12-25 07:20 | NUR ---
ENDORSED PATIENT TO AM SHIFT FOR CONTINUITY OF CARE.
--- NOTE | 2019-12-25 07:21 | NUR ---
RECEIVED PATIENT IN STABLE CONDITION FROM POLICY ADVISOR NURSE FOR CONTINUITY OF CARE. TELE PATIENT. AAOX2-3, ABLE TO MAKE NEEDS KNOWN. RESPIRATIONS EVEN, UNLABORED. CONTINUES ON O2 2L VIA NC, O2SAT 98%. SKIN WARM, DRY. SALINE LOCK TO LEFT FOOT 22G PATENT/INTACT. NO C/O PAIN. NO S/S ACUTE DISTRESS. PATIENT INCONTINENT OF B/B. PLAN OF CARE DISCUSSED WITH PATIENT. CALL LIGHT WITHIN REACH. SAFETY PRECAUTIONS IN PLACE.
[2019-12-25 08:00] VITALS: BP 118/71
[2019-12-25] MEDS: MIDODRINE 5 MG TAB PO SCH ×3 (09:00→22:19)
[2019-12-25] MEDS: carvediloL 6.25 MG TAB PO SCH ×2 (09:51→21:00)
[2019-12-25] MEDS: LACTULOSE 20 GM/30 ML UDC PO SCH ×3 (09:51→17:00)
[2019-12-25] MEDS: ISOSORBIDE DINITRATE 20 MG TAB PO SCH (09:52)
[2019-12-25] MEDS: POLYETHYLENE GLYCOL 17 GM/PKT PO SCH ×4 (09:52→21:00)
[2019-12-25] MEDS: VIT-B COMP/VIT-C/FOLIC ACID 1 TAB PO SCH (09:52)
[2019-12-25] MEDS: ESCITALOPRAM 20 MG TAB PO SCH (09:52)
[2019-12-25] MEDS: PANTOPRAZOLE 40 MG TABEC PO SCH (09:52)
[2019-12-25] MEDS: MULTIVITAMIN 1 TAB PO SCH (09:53)
[2019-12-25] MEDS: SENNA 8.6 MG TAB PO SCH ×3 (09:53→17:00)
--- NOTE | 2019-12-25 09:55 | NUR ---
SCHEDULED MORNING MEDICATION GIVEN, EDUCATION PROVIDED. MIDODRINE HOLD, BP CHECKED 135/71, HR 71. O2 SAT 100% WITH 2L NC. DIALYSIS NURSE AT BEDSIDE. WILL START DIALYSIS. SAFETY MEASURES IN PLACE, CALL LIGHT WITHIN REACH. WILL CONTINUE TO MONITOR.
--- NOTE | 2019-12-25 10:33 | NUR ---
INFORMED DR. CESPEDES THAT PATIENT'S POTASSIUM 3.3, NO NEW ORDER OBTAINED. DR. CESPEDES STATED THAT IT' OK WITH K 3.3, WILL RECHECK POTASSIUM LEVEL TOMORROW.
--- NOTE | 2019-12-25 10:48 | NUR ---
PER DIALYSIS REGISTERY [facility], PATIENT'S CATH AT RIGHT UPPER CHEST NOT WORKING. NEED ACTIVASE TO LOCK HD CATH. WILL INFORM MD AND FOLLOW UP.
[2019-12-25] MEDS ORDERED: ALTEPLASE 2 MG VIAL MC SCH (11:30)
--- NOTE | 2019-12-25 11:52 | NUR ---
MIDODRAINE GIVEN FOR BP 84/45. EDUCATION PROVIDED, O2 SAT 97@ WITH 2L NC. SAFETY MEASURES IN PLACE, CALL LIGHT WITHIN REACH. WILL CONTINUE TO MONITOR.
[2019-12-25 12:00] VITALS: BP 84/45
[2019-12-25] MEDS: HYDROcodone/APAP 5/325 MG 1 TAB TAB PO PRN (13:57)
--- NOTE | 2019-12-25 14:53 | NUR ---
MADE ROUNDS. PATIENT IS UNDER DIALYSIS. BP 91/58/ HR 64. DIALYSIS NURSE AT BEDSIDE. SAFETY MEASURES IN PLACE, CALL LIGHT WITHIN REACH. WILL CONTINUE TO MONITOR.
[2019-12-25 16:00] VITALS: BP 113/65
[2019-12-25] MEDS ORDERED: MIDAZOLAM 5 MG/5 ML VIAL ONE (16:51)
[2019-12-25] MEDS ORDERED: fentaNYL citrate 0.05 MG/ML VIAL ONE (16:51)
[2019-12-25] MEDS ORDERED: diphenhydrAMINE 50 MG/ML VIAL ONE (18:44)
[2019-12-25] MEDS ORDERED: fentaNYL citrate 0.05 MG/ML VIAL IVP ONE (18:50)
[2019-12-25] MEDS ORDERED: diphenhydrAMINE 50 MG/ML VIAL IVP ONE (18:50)
[2019-12-25] MEDS ORDERED: MIDAZOLAM 2 MG/2 ML VIAL IVP ONE (18:50)
--- NOTE | 2019-12-25 18:50 | NUR ---
PATIENT WAS BROUGHT BACK S/P COLOSCOPY. ASLEEP. VITAL SIGNS CHECKED WILL CONTINUE TO CLOSELY MONITOR.
--- NOTE | 2019-12-25 19:25 | NUR ---
ENDORSED S/P COLOSCOPY PATIENT TO TEACHER OF FAMILY AND CONSUMER SCIENCE RN FOR CONTINUITY OF CARE. PATIENT ASLEEP.
[2019-12-25 20:00] VITALS: BP 96/56
--- NOTE | 2019-12-25 20:12 | NUR ---
PT'S POTASSIUM LEVEL IS 3.3, DR GALLARDO WAS INFORMED AND PER THE DR, THE LEVEL IS "OKAY." NO ORDERS RECEIVED.
[2019-12-25] MEDS: ATORVASTATIN 20 MG TAB PO SCH (21:00)
--- NOTE | 2019-12-25 21:30 | NUR ---
CHECKED ON PT. THE PT IS SLEEPY BUT AROUSABLE TO VOICE. PT IS ABLE TO MAKE NEEDS KNOWN. PT IS BREATHING SPONTANEOUSLY ON ROOM AIR, SATURATING AT 100%. SKIN IS WARM, DRY, AND INTACT. ACTIVE BOWEL TONES NOTED. BLOOD PRESSURE IS 96/56, PULSE 51 MIDORINE 10MG WAS ADMINISTERED PER ORDER, A SCHEDULED MEDICATION. PT REFUSED TO TAKE OTHER PO MEDS, STATING THAT HE'S TOO TIRED. EDUCATION WAS RENDERED. NO RESPONSE FROM PT HE HAS HIS EYES CLOSED. CALL LIGHT IS WITHIN PLACE. BED IN LOW POSITION. WILL CONTINUE TO MONITOR.
--- NOTE | 2019-12-25 23:02 | NUR ---
PT REPOSITION, NO SIGNS OF DISTRESS.
[2019-12-26] VITALS: BP 126/73
--- NOTE | 2019-12-26 01:15 | NUR ---
RESOURCING ADVISOR AT BEDSIDE TO HELP REPOSITION PATIENT. NO SIGNS OF DISTRESS NOTED.
--- NOTE | 2019-12-26 03:12 | NUR ---
PT IS REPOSITIONED AND WENT BACK TO BED. NO SIGNS OF DISTRESS NOTED.
[2019-12-26 04:00] VITALS: BP 126/56
--- NOTE | 2019-12-26 04:50 | NUR ---
PT IS SLEEPING. NO SIGNS OF DISTRESS NOTED.
[2019-12-26 05:28] LABS: BASOPHILS # (AUTO) 0.1 K/uL (0.00-0.22); BASOPHILS % (AUTO) 1.1 % (0.0-2.0); EOSINOPHILS # (AUTO) 0.2 K/uL (0-0.4); EOSINOPHILS % (AUTO) 3.3 % (0.0-4.0); HEMATOCRIT 28.6 % (36-52); HEMOGLOBIN 9.5 g/dL (12.0-18.0); LYMPHOCYTES # (AUTO) 0.9 K/uL (2.0-11.5); LYMPHOCYTES % (AUTO) 18.1 % (20.5-51.1); MEAN CORPUSCULAR HEMOGLOBIN 32 pg (27-31); MEAN CORPUSCULAR HGB CONC 33 g/dL (33-37); MEAN CORPUSCULAR VOLUME 96.6 fL (80-94); MONOCYTES # (AUTO) 0.5 K/uL (0.8-1.0); MONOCYTES % (AUTO) 10.8 % (1.7-9.3); NEUTROPHILS # (AUTO) 3.2 K/uL (1.8-7.7); NEUTROPHILS % (AUTO) 66.7 % (42.2-75.2); PLATELET COUNT (AUTO) 186 K/uL (140-450); RED BLOOD CELL COUNT(AUTO) 2.96 MIL/uL (4.20-6.10); RED CELL DISTRIBUTION WIDTH 17.4 % (11.6-13.7); WHITE BLOOD COUNT (AUTO) 4.8 K/uL (4.8-10.8)
[2019-12-26 05:55] LABS: ANION GAP 10.2 (8-16); CARBON DIOXIDE 28.8 mmol/L (21-32); CHLORIDE 103 mmol/L (98-107); GLUCOSE 75 mg/dL (74-106); SODIUM SERUM 139 mmol/L (136-145)
[2019-12-26 06:00] LABS: MAGNESIUM 1.8 mg/dL (1.8-2.4); PHOSPHORUS 2.5 mg/dL (2.5-4.9)
[2019-12-26 06:01] LABS: UREA NITROGEN, BLOOD 8 mg/dL (7-18)
--- NOTE | 2019-12-26 07:42 | NUR ---
ENDORSED CARE TO AM NURSE. PT IS SLEEPING. NO SIGNS OF DISTRESS NOTED.
--- NOTE | 2019-12-26 07:43 | NUR ---
RECEIVED REPORT FROM BOTTOM PRESSER NURSE PA-RN. PT RESTING IN BED, AOX2/3-CONFUSED, BEDBOUND LEFT SIDED WEAKNESS, ON ROOM AIR WITH LEFT FOOT #22G/SL. DISCUSSED PLAN OF CARE AND PT VERBALIZED UNDERSTANDING. FALL PRECAUTIONS IN PLACE. CALL LIGHT WITHIN REACH. NO S/S OF RESPIRATORY DISTRESS OR DISCOMFORT NOTED AT THIS TIME. WILL CONTINUE TO MONITOR.
[2019-12-26 08:00] VITALS: BP 117/70
[2019-12-26] MEDS: MIDODRINE 5 MG TAB PO SCH ×2 (09:00→21:00)
[2019-12-26] MEDS: POLYETHYLENE GLYCOL 17 GM/PKT PO SCH (09:00)
[2019-12-26] MEDS: ISOSORBIDE DINITRATE 20 MG TAB PO SCH (09:36)
[2019-12-26] MEDS: carvediloL 6.25 MG TAB PO SCH ×2 (09:36→21:00)
[2019-12-26] MEDS ORDERED: CRUSHER, PILL MC ONE (09:36)
[2019-12-26] MEDS: MULTIVITAMIN 1 TAB PO SCH (09:37)
[2019-12-26] MEDS: PANTOPRAZOLE 40 MG TABEC PO SCH (09:37)
[2019-12-26] MEDS: VIT-B COMP/VIT-C/FOLIC ACID 1 TAB PO SCH (09:37)
[2019-12-26] MEDS: EPOETIN ALFA 10,000 UNITS/ML VIAL SUBQ SCH (09:40)
--- NOTE | 2019-12-26 09:40 | NUR ---
SCHEDULED MEDICATIONS GIVEN AND TOLERATED WELL. MIRALAX NOT GIVEN DUE TO DIARRHEA. PROAMATINE NOT GIVEN DUE TO BLOOD PRESSURE 117/70. CALL LIGHT WITHIN REACH. SAFETY PRECAUTIONS IN PLACE. NO S/S OF RESPIRATORY DISTRESS OR DISCOMFORT NOTED AT THIS TIME. WILL CONTINUE TO MONITOR.
[2019-12-26] MEDS: MORPHINE SULFATE 2 MG/ML SYR IVP PRN (10:11)
--- NOTE | 2019-12-26 10:11 | NUR ---
PT C/O PAIN REQUESTING MORPHINE FOR PAIN FROM HIS "CHEST TO HIS TESTICLES." ALSO C/O LEG PAIN. MEDICATED AND TOLERATED WELL. CALL LIGHT WITHIN REACH. SAFETY PRECAUTIONS IN PLACE. NO S/S OF RESPIRATORY DISTRESS OR DISCOMFORT NOTED AT THIS TIME. WILL CONTINUE TO MONITOR.
--- NOTE | 2019-12-26 11:47 | NUR ---
DR. TUCKER IN TO SEE PT AND PT C/O CHEST PAIN STATING "I THINK I AM HAVING A HEART ATTACK." NITROSTAT WAS GIVEN SUBLINGUALLY. PT TOLERATED WELL. CALL LIGHT WITHIN REACH. SAFETY PRECAUTIONS IN PLACE. NO S/S OF RESPIRATORY DISTRESS OR DISCOMFORT NOTED AT THIS TIME. WILL CONTINUE TO MONITOR.
[2019-12-26 12:00] VITALS: BP 81/44
[2019-12-26] MEDS: LORazepam 0.5 MG TAB PO PRN ×2 (13:54→21:58)
--- NOTE | 2019-12-26 13:54 | NUR ---
PT C/O SOB. SPO2 99-100%, BP 97/54, HR 60. OXYGEN APPLIED REQUESTED BY CHARGE NURSE LEONA. OBTAINED ORDER FROM DR. CESPEDES FOR ATIVAN AND WAS GIVEN. PT TOLERATED WELL. CALL LIGHT WITHIN REACH. SAFETY PRECAUTIONS IN PLACE. NO S/S OF RESPIRATORY DISTRESS OR DISCOMFORT NOTED AT THIS TIME. WILL CONTINUE TO MONITOR.
[2019-12-26 16:00] VITALS: BP 92/73
--- NOTE | 2019-12-26 16:00 | NUR ---
PT RESTING IN BED. CALL LIGHT WITHIN REACH. SAFETY PRECAUTIONS IN PLACE. NO S/S OF RESPIRATORY DISTRESS OR DISCOMFORT NOTED AT THIS TIME. WILL CONTINUE TO MONITOR.
--- NOTE | 2019-12-26 17:15 | NUR ---
SPOKE WITH DR. CESPEDES REGARDING POTASSIUM 3.0 AND HE STATED "HE IS A DIALYSIS PATIENT SO WE WILL NOT BE SUPPLEMENTING HIM UNLESS IT GOES BELOW THAT." CALL LIGHT WITHIN REACH. SAFETY PRECAUTIONS IN PLACE. NO S/S OF RESPIRATORY DISTRESS OR DISCOMFORT NOTED AT THIS TIME. WILL CONTINUE TO MONITOR.
--- NOTE | 2019-12-26 17:30 | NUR ---
SAKINA COLLAZO FROM [facility] CALLED AND FAXED FACE SHEET [phone] TO HER. SHE SAID SHE WILL CALL BACK.
--- NOTE | 2019-12-26 19:00 | NUR ---
ENDORSED PT CARE TO LITHOGRAPHER HELPER NURSE PA-RN FOR CONTINUITY OF CARE. PT IN STABLE CONDITION AT THIS TIME.
[2019-12-26 20:00] VITALS: BP 121/79
[2019-12-26] MEDS ORDERED: AMITRIPTYLINE 10 MG TAB PO SCH (21:00)
[2019-12-26] MEDS: ATORVASTATIN 20 MG TAB PO SCH (21:55)
[2019-12-26] MEDS: HYDROcodone/APAP 5/325 MG 1 TAB TAB PO PRN (22:30)
--- NOTE | 2019-12-26 22:39 | NUR ---
PT IS ASKING FOR MORPHINE FOR GENERALIZED BODY ACHES. PER AM NURSE, IS REFUSING TO ORDER MORPHINE FOR THE PT DUE TO HIS DIAGNOSIS OF HYPOTENSION. PT WAS RECENTLY MEDICATED WITH PO ATIVAN THEREFORE, PT WILL HAVE TO WAIT FOR BEFORE HE CAN RECEIVE PAIN MEDS. PT IS NOT SHOWING SIGNS OF DISTRESS. PT IS IN STABLE CONDITION. VITALS ARE WITHIN NORMAL LIMITS. EDUCATION WAS GIVEN. PT DID NOT VERBALIZED UNDERSTANDING AND INSIST ON SPEAKING WITH CHARGE NURSE. CHARGE NURSE IS AT BEDSIDE.
[2019-12-27] VITALS: BP 121/78
--- NOTE | 2019-12-27 01:19 | NUR ---
PT IS SLEEPING. PT IS IN STABLE CONDITION.
--- NOTE | 2019-12-27 03:40 | NUR ---
[facility] CALLED TO GATHER INFORMATION ABOUT THE PT. THE CALLER HUNGER UP BEFORE NURSE COULD INQUIRE ABOUT TRANSFER MODE, [employer] TIME, AND BED AVAILABILITY. A CALL WAS MADE TO [facility] TO INQUIRE ABOUT BED, MODE OF TRANSFER, AND [employer]. NO ONE AT THE TRANSFER CENTER ANSWERED SO A MESSAGE WAS LEFT FOR A CALL BACK. IMAGE CD HAS BEEN ORDERED. CALLED RADIOLOGY BUT THERE WAS NO ANSWER.
[2019-12-27 04:00] VITALS: BP 139/74
--- NOTE | 2019-12-27 05:06 | NUR ---
PT IS SLEEPING. NO SIGNS OF DISTRESS NOTED.
[2019-12-27] MEDS: LORazepam 0.5 MG TAB PO PRN (05:28)
[2019-12-27 05:37] LABS: BASOPHILS % (AUTO) 0.8 % (0.0-2.0); EOSINOPHILS # (AUTO) 0.1 K/uL (0-0.4); EOSINOPHILS % (AUTO) 2.4 % (0.0-4.0); HEMATOCRIT 29.3 % (36-52); HEMOGLOBIN 9.6 g/dL (12.0-18.0); LYMPHOCYTES # (AUTO) 0.9 K/uL (2.0-11.5); LYMPHOCYTES % (AUTO) 23.6 % (20.5-51.1); MEAN CORPUSCULAR HEMOGLOBIN 32 pg (27-31); MEAN CORPUSCULAR HGB CONC 33 g/dL (33-37); MEAN CORPUSCULAR VOLUME 96.4 fL (80-94); MONOCYTES # (AUTO) 0.5 K/uL (0.8-1.0); MONOCYTES % (AUTO) 13.2 % (1.7-9.3); NEUTROPHILS # (AUTO) 2.3 K/uL (1.8-7.7); PLATELET COUNT (AUTO) 173 K/uL (140-450); RED BLOOD CELL COUNT(AUTO) 3.04 MIL/uL (4.20-6.10); RED CELL DISTRIBUTION WIDTH 17.6 % (11.6-13.7); WHITE BLOOD COUNT (AUTO) 3.8 K/uL (4.8-10.8)
[2019-12-27 05:40] LABS: ANION GAP 11.3 (8-16); CARBON DIOXIDE 26.7 mmol/L (21-32); CHLORIDE 103 mmol/L (98-107); CREATININE 2.6 mg/dL (0.6-1.3); GLUCOSE 89 mg/dL (74-106); SODIUM SERUM 138 mmol/L (136-145); UREA NITROGEN, BLOOD 14 mg/dL (7-18)
[2019-12-27 05:42] LABS: MAGNESIUM 1.9 mg/dL (1.8-2.4); PHOSPHORUS 2.5 mg/dL (2.5-4.9)
--- NOTE | 2019-12-27 05:58 | NUR ---
RECEIVED CALL FROM [facility] AND STATED THAT [facility] DO[facility] NOT HAVE A BED FOR THE PT JUST YET. [facility] WILL HAVE TO SET UP TRANSPORTATION ONCE [facility] IS READY TO RECEIVE THE PT.
--- NOTE | 2019-12-27 05:59 | NUR ---
PT REPORTED CONCERNS ABOUT HIS PERSONAL BELONGS SUCH HIS WHEELCHAIR, EYE GLASSES, CELL PHONE, AND DAGMAR LIFT. NURSE CHECKED THE PT'S BELONGING'S LIST AND THE PT DIDN'T BRING ANY BELONGING. PT WAS INFORMED.
[2019-12-27] MEDS: HYDROcodone/APAP 5/325 MG 1 TAB TAB PO PRN (07:26)
--- NOTE | 2019-12-27 07:41 | NUR ---
RECEIVED REPORT FROM NIGHT NURSE FOR CONTINUITY OF CARE, PT IS STABLE, PT IS ASLEEP, NO SIGNS OF DISTRESS NOTED, PT HAS LEFT FOOT 22G SALINE LOCK, SKIN INTACT, PT HAS LEFT SIDED WEAKNESS, PT HAS DIALYSIS PORT ON RIGHT CHEST, PT PENDING TRANSFER TO HIGHER LEVEL OF CARE, BED IN LOW POSITION, SAFETY MEASURES IN PLACE, CALL LIGHT WITHIN REACH. WILL CONTINUE TO MONITOR.
[2019-12-27 08:00] VITALS: BP 129/76
[2019-12-27] MEDS: VIT-B COMP/VIT-C/FOLIC ACID 1 TAB PO SCH (09:12)
[2019-12-27] MEDS: ISOSORBIDE DINITRATE 20 MG TAB PO SCH (09:13)
[2019-12-27] MEDS: MULTIVITAMIN 1 TAB PO SCH (09:13)
[2019-12-27] MEDS: MIDODRINE 5 MG TAB PO SCH ×2 (09:13→21:11)
[2019-12-27] MEDS: PANTOPRAZOLE 40 MG TABEC PO SCH (09:14)
[2019-12-27] MEDS: carvediloL 6.25 MG TAB PO SCH ×2 (09:14→21:00)
--- NOTE | 2019-12-27 09:21 | NUR ---
ADMINISTERED SCHEDULED MEDICATION, MEDICATION EDUCATION PROVIDED, PT VERBALIZED UNDERSTANDING, PT TOLERATED WELL, PT IS STABLE, WORKING WITH PHYSICAL THERAPY, CALL LIGHT WITHIN REACH, WILL CONTINUE TO MONITOR.
[2019-12-27] MEDS: MORPHINE SULFATE 2 MG/ML SYR IVP PRN ×2 (09:27→12:44)
--- NOTE | 2019-12-27 09:32 | NUR ---
ADMINISTERED MORPHINE FOR BACK PAIN 09/13, MEDICATION EDUCATION PROVIDED, PT VERBALIZED UNDERSTANDING, PT TOLERATED WELL, PT IS STABLE, CALL LIGHT WITHIN REACH, WILL CONTINUE TO MONITOR.
--- NOTE | 2019-12-27 11:13 | NUR ---
NOTIFIED DR FRACISCO GRIMES, POTASSIUM IS 3.0, RECEIVED VERBAL ORDER FOR 40 MEQ K RIDER IV ONCE, WILL INPUT ORDER AND CARRY IT OUT.
[2019-12-27 12:00] VITALS: BP 115/74
[2019-12-27] MEDS: KCL 20 MEQ/WATER INJ PREMIX 200 ML IV SCH ×2 (12:19→14:00)
--- NOTE | 2019-12-27 12:48 | NUR ---
ADMINISTERED MORPHINE FOR PAIN 10/14, MEDICATION EDUCATION PROVIDED, PT VERBALIZED UNDERSTANDING, PT TOLERATED WELL, PT IS STABLE, NO SIGNS OF RESPIRATORY DISTRESS NOTED, CALL LIGHT WITHIN REACH, WILL CONTINUE TO MONITOR.
[2019-12-27] MEDS ORDERED: POTASSIUM CHLORIDE 10 MEQ TABER PO SCH (14:15)
--- NOTE | 2019-12-27 14:31 | NUR ---
ADMINISTERED SCHEDULE MEDICATION, MEDICATION EDUCATION PROVIDED, PT VERBALIZED UNDERSTANDING, PT TOLERATED WELL, PT IS STABLE, CALL LIGHT WITHIN REACH, WILL CONTINUE TO MONITOR.
--- NOTE | 2019-12-27 15:38 | NUR ---
12/27/19 RD FOLLOW UP COMPLETED PLEASE REFER TO NUTRITION ASSESSMENT UNDER CARE ACTIVITY FOR ESTIMATED NUTRITIONAL NEEDS. 1. CONTINUE REGULAR DIET WITH ENSURE TID 2. PROVIDE ASSISTANCE WITH MEALS AND ENCOURAGE PO INTAKE 3. RD WILL F/U 2-3 DAYS; HIGH RISK. ALBA ARTEAGA RD
[2019-12-27 16:00] VITALS: BP 131/75
--- NOTE | 2019-12-27 16:30 | NUR ---
PT RESTING IN BED, NO SIGNS OF DISTRESS NOTED, RESPIRATIONS ARE EVEN AND UNLABORED ON ROOM AIR, CALL LIGHT WITHIN REACH, WILL CONTINUE TO MONITOR.
--- NOTE | 2019-12-27 17:20 | NUR ---
TALKED TO RADHA IN [place] MADE AWARE TRANSFER IS CANCEL, PT GOING TO [facility]
--- NOTE | 2019-12-27 17:55 | NUR ---
UPDATED PT ON HIS STATUS FOR TRANSPORT AND INFORMED PT WE ARE STILL WAITING FOR A BED AT [facility], PT IS STABLE, CALL LIGHT WITHIN REACH, WILL CONTINUE TO MONITOR.
--- NOTE | 2019-12-27 19:10 | NUR ---
ENDORSE PT TO NIGHT NURSE FOR CONTINUITY OF CARE, PT IS STABLE
--- NOTE | 2019-12-27 19:15 | NUR ---
RECEIVED REPORT FROM DAYSDCFT NURSE. PT RESTING WELL IN BED, ABLE TO MAKE NEEDS KNOWN AND FOLLOWS COMMANDS. PT DENIES OXYGEN USE AT HOME BUT REQUESTING THE NASAL CANNULA FOR COMFORT. ON ROOM AIR, SPO2 100%. NASAL CANNULA 1L. SKIN WARM AND DRY, AFEBRILE, SOME EDEMA NOTED TO LOWER EXTREMITY. LEFT FOOT 22G, SALINE LOCKED. PT NOTED WITH LEFT SIDED WEAKNESS. PT INCONTINENT. DENIES PAIN AT THIS TIME. PACEMAKER AT LEFT UPPER CHEST. CONNECTED TO CONTINUOUS RN OBSERVATION. RIGHT UPPER CHEST HD CATH, DRESSING DRY AND INTACT. SAFETY MEASURES IN PLACE. WILL CONTINUE TO MONITOR.
--- NOTE | 2019-12-27 19:18 | NUR ---
Talked to Radha in [facility], inquiring about bed availability, per Radha no bed available yet and will call us back when bed is ready, will endorsed to charge nurse and house sup.
[2019-12-27 20:00] VITALS: BP 116/66
[2019-12-27] MEDS ORDERED: AMITRIPTYLINE 25 MG TAB ONE (21:08)
[2019-12-27] MEDS: AMITRIPTYLINE 10 MG TAB PO SCH (21:10)
[2019-12-27] MEDS: ATORVASTATIN 20 MG TAB PO SCH (21:11)
--- NOTE | 2019-12-27 21:15 | NUR ---
SCHEDULED MEDS ADMINISTERED, PT ABLE TO SWALLOW PILLS WITHOUT COUGHING. HELD MED FOR HTN PER PARAMETER. ASSISTED WITH REPOSITIONING. BED LOCKED AND IN LOWEST POSITION, CALL LIGHT WITHIN REACH.
--- NOTE | 2019-12-27 23:08 | NUR ---
PT REQUESTING SLEEP MEDICATION. TURNED AND POSITIONED FOR COMFORT, DENIES PAIN. WILL CARRY OUT.
[2019-12-28] VITALS: BP 99/78
--- NOTE | 2019-12-28 02:10 | NUR ---
ASSISTED PATIENT TO SIT AT SIDE OF BED TO DANGLE FEET. NO DISTRESS OR COMPLICATIONS. PT ABLE TO MOVE RIGHT EXTREMITIES. REPOSITIONED FOR PROPER ALIGNMENT, BACK IN BED. SIDERAILS UP.
[2019-12-28 04:00] VITALS: BP 99/78
--- NOTE | 2019-12-28 04:10 | NUR ---
PT ASKING FOR PAIN MEDS, REPORTS 8/10 AT BACK. VITALS WITHIN RANGE, ADMINISTERED IVP MORPHINE, REPOSITIONED AND TURNED, PILLOWS USED TO OFFLOAD PRESSURE AREAS. SIDERAILS UP, BED LOCKED AND IN LOWEST POSITION.
[2019-12-28] MEDS: MORPHINE SULFATE 2 MG/ML SYR IVP PRN ×3 (04:58→23:38)
--- NOTE | 2019-12-28 06:52 | NUR ---
PT RESTING COMFORTABLY, SAFETY MEASURES IN PLACE. LEFT FOOT IV SALINE LOCKED. CALL LIGHT WITHIN REACH. FLACC 0/.
--- NOTE | 2019-12-28 07:35 | NUR ---
RECEIVED ENDORSEMENT FROM PROCESS ENGINEERING TECHNICIAN, ASLEEP ON BED, BREATHING SPONTANEOUSLY WITH O2 AT 2L/MIN VIA NC, NOT IN DISTRESS NOTED, WITH IV CANNULA G22 AT LEFT FOOT ON SALINE LOCK NOTED. WITH RIGHT UPPER CHEST TUNNELED CATHETER FOR ACCESS FOR HD. WITH LEFT SIDED WEAKNESS NOTED. SAFETY MEASURES IN PLACE AND CONTINUE MONITOR.
[2019-12-28 08:00] VITALS: BP 133/67
[2019-12-28] MEDS ORDERED: LACTULOSE 20 GM/30 ML UDC PO SCH (09:00)
[2019-12-28] MEDS: MIDODRINE 5 MG TAB PO SCH ×2 (09:00→20:52)
[2019-12-28] MEDS: VIT-B COMP/VIT-C/FOLIC ACID 1 TAB PO SCH (09:00)
--- NOTE | 2019-12-28 09:02 | NUR ---
COMPLAINED OF MILD LEFT FOOT PAIN, RE-POSITIONING DONE, FEEL COMFORTABLE CLAIMED.
--- NOTE | 2019-12-28 10:01 | NUR ---
DUE MEDICATION GIVEN, TOLERATED ORALLY. MIDODRINE NON ADMINISTER GEORGE-133/67.
[2019-12-28] MEDS: carvediloL 6.25 MG TAB PO SCH ×2 (10:14→20:52)
[2019-12-28] MEDS: ISOSORBIDE DINITRATE 20 MG TAB PO SCH (10:15)
[2019-12-28] MEDS: PANTOPRAZOLE 40 MG TABEC PO SCH (10:16)
[2019-12-28] MEDS: MULTIVITAMIN 1 TAB PO SCH (10:16)
[2019-12-28] MEDS: EPOETIN ALFA 10,000 UNITS/ML VIAL SUBQ SCH (10:18)
--- NOTE | 2019-12-28 10:20 | NUR ---
APPARENTLY ANXIOUS, ATIVAN 1MG PO GIVEN ORDERED PRN. WITH ONGOING PT THERAPY.
[2019-12-28 12:00] VITALS: BP 116/69
--- NOTE | 2019-12-28 12:45 | NUR ---
VITAL SIGNS TAKEN AND RECORDED, STABLE. REFUSED TO EAT LUNCH
--- NOTE | 2019-12-28 13:50 | NUR ---
HEMODIALYSIS STARTED AT BEDSIDE BY HD NURSE.
--- NOTE | 2019-12-28 14:21 | NUR ---
APPARENTLY PATIENT WANTS TO STOP THE HEMODIALYSIS, EXPLAINED THE IMPORTANCE AND INDICATION OF THE PROCEDURE. AGREED TO CONTINUE THE HD AND KEPT COMFORTABLE TO BED.
[2019-12-28] MEDS: LORazepam 0.5 MG TAB PO PRN ×2 (14:43→20:52)
--- NOTE | 2019-12-28 15:09 | NUR ---
DR. VEGA HD ORDER PLACE ORDER IN THE SYSTEM RECEIVED BY HD NURSE INCLUDING HEPARIN LOCK
[2019-12-28 16:00] VITALS: BP 101/71
--- NOTE | 2019-12-28 16:47 | NUR ---
HEMODIALYSIS FINISHED, REMOVED-500ML OF FLUID PER HD NURSE.VITAL SIGNS STABLE
--- NOTE | 2019-12-28 17:32 | NUR ---
ENSURE AND MILK OFFERED, ABLE TO SIP 50ML OF ENSURE, TOLERATED WELL.
--- NOTE | 2019-12-28 18:18 | NUR ---
COMPLAINED OF BILATERAL LOWER LEG PAIN 09/13, RE-POSITIONING DONE AND MORPHINE 2MG IV ORDERED PRN GIVEN. KEPT COMFORTABLE TO BED
--- NOTE | 2019-12-28 19:26 | NUR ---
ENDORSED TO TECHNICAL SERVICES REPRESENTATIVE IN STABLE CONDITION FOR CONTINUITY OF CARE
--- NOTE | 2019-12-28 19:45 | NUR ---
RECEIVED PT FROM DAYSWVFT RN, PT AWAKE AND LAYING IN BED COMPLAINING OF BEING HUNGRY, INFORMED HIM WILL GET HIM SOMETHING TO EAT WHEN POSSIBLE, S1 AND S2 HEART SOUNDS HEARD LUNG SOUNDS CLEAR, PULSES PALPABLE UPPER AND LOWER EXTREMITIES, NO SIGNS OF DISTRESS WILL CONTINUE TO MONITOR PT
[2019-12-28 20:00] VITALS: BP 124/84
--- NOTE | 2019-12-28 20:50 | NUR ---
INFORMED BY HVAC SALES ENGINEER PT HAD SEVERAL EPISODES OF VTACH, INFORMED DR. YAP EKG ORDERED
[2019-12-28] MEDS: ATORVASTATIN 20 MG TAB PO SCH (20:52)
[2019-12-28] MEDS: AMITRIPTYLINE 10 MG TAB PO SCH (20:56)
[2019-12-29] VITALS: BP 95/51
--- NOTE | 2019-12-29 01:00 | NUR ---
PT RESTING IN BED VSS WILL CONTINUE TO MONITOR PT
--- NOTE | 2019-12-29 03:30 | NUR ---
SPOKE TO LAURA FROM THE TRANSFER CENTER FROM [facility] REGARDING TRANSFER OF PATIENT. PATIENT'S BED WILL BE [address] [place] [address] BED #[id number]. LAURA STATED TO TRANSFER PATIENT IN THE MORNING AND NOT NOW X3. ADDRESS IS: [facility] AT [address] [place], [place] [id number]. PHONE NUMBER FOR TRANSFER CENTER IS [phone]. DIRECT NUMBER FOR THE FLOOR PATIENT IS GOING TO IS [phone]. PER TRANSFER CENTER, PLEASE CALL THE DIRECT NUMBER TO THE FLOOR THE PATIENT WILL BE ADMITTED TO IN ORDER TO GIVE REPORT AND TO NOTIFY OF ETA. IF NO RESPONSE, PLEASE CALL TRANSFER CENTER. PATIENT IS AWARE OF TRANSFER.
[2019-12-29 04:00] VITALS: BP 95/51
--- NOTE | 2019-12-29 04:57 | NUR ---
PT DESIRED TO SIT UP ON SIDE OF BED ASSISTED PT TO SIT UP ON SIDE OF BED FOR SEVERAL MINUTES
[2019-12-29] MEDS: ONDANSETRON 4 MG/2 ML VIAL IVP PRN (05:47)
[2019-12-29 05:56] VITALS: BP 95/59
--- NOTE | 2019-12-29 06:48 | NUR ---
CALLED SON NAPOLEON TO UPDATE HIM ON HIS FATHER'S TRANSFER TO [facility]. DID NOT ANSWER PHONE. LEFT A MESSAGE.
--- NOTE | 2019-12-29 07:15 | NUR ---
RECEIVED REPORT FROM TIME CLOCK INSPECTOR NURSE. PATIENT LYING DOWN IN BED IN STABLE CONDITION. NO DISTRESS NOTED. TO BE TRANSFERRED TO [facility] AT 0730 PER NIGHT RN. WILL CONTINUE TO MONITOR.
--- NOTE | 2019-12-29 08:04 | NUR ---
[facility] TRANSPORT ON UNIT TO TAKE PATIENT TO [facility]. PATIENT TRANSFERRED THERE AT THIS TIME IN STABLE CONDITION. NAPOLEON (SON) CALLED ME BACK AT THIS TIME AND LET HIM KNOW THAT [facility] WAS ON UNIT TO TRANSFER PATIENT TO [facility]. ANSWERED ALL OF HIS QUESTIONS REGARDING TRANSFER. CALLED [facility] AT [phone]. PER MULTIMEDIA TEACHER THERE, NURSE WILL CALL ME BACK FOR REPORT NURSE IS BUSY RIGHT NOW. NOTIFIED MULTIMEDIA TEACHER AT [facility] THAT TRANSPORTERS ALREADY HERE PER TOOL ROOM SUPERVISOR RN AT [facility] REQUESTED TO CALL IN MORNING. WILL CONTINUE TO MONITOR.
--- NOTE | 2019-12-29 08:39 | NUR ---
ZAY MAGUIRE FROM [facility] CALLED FOR REPORT. GAVE REPORT TO TING AND ANSWERED ALL OF HER QUESTIONS. NOTIFIED HER THAT [facility] ALREADY TOOK PATIENT AT 0800 THIS AM. TING VERBALIZED COMPLETE UNDERSTANDING AND AWAITING FOR PATIENT'S ARRIVAL.
== END 2019-12-29 08:00 | disposition short-term general hospital (02) | DRG 871 ==
LOC: MED 15:46 → MIC 18:23 → MTU 12-22 15:20
PROVIDERS: ADMIT Family Medicine; ATTEND Family Medicine
PROC: 30233N1 Transfusion of Nonautologous Red Blood Cells into Peripheral Vein, Percutaneous Approach (ICD-10-PCS; 2019-12-22)
PROC: 0DJ08ZZ Inspection of Upper Intestinal Tract, Via Natural or Artificial Opening Endoscopic (ICD-10-PCS; 2019-12-25)
PROC: 0DBF8ZZ Excision of Right Large Intestine, Via Natural or Artificial Opening Endoscopic (ICD-10-PCS; principal; 2019-12-25 17:30)
PROC: 5A1D70Z Performance of Urinary Filtration, Intermittent, Less than 6 Hours Per Day (ICD-10-PCS; 2019-12-25 17:30)
PROC: 5A1D70Z Performance of Urinary Filtration, Intermittent, Less than 6 Hours Per Day (ICD-10-PCS; 2019-12-28)
DX: A41.9 Sepsis, unspecified organism (principal); N18.6 End stage renal disease; N17.0 Acute kidney failure with tubular necrosis; G93.41 Metabolic encephalopathy; E43 Unspecified severe protein-calorie malnutrition; I21.A1 Myocardial infarction type 2; J96.01 Acute respiratory failure with hypoxia; N39.0 Urinary tract infection, site not specified; Z68.1 Body mass index [BMI] 19.9 or less, adult; I12.0 Hypertensive chronic kidney disease with stage 5 chronic kidney disease or end stage renal disease; I69.354 Hemiplegia and hemiparesis following cerebral infarction affecting left non-dominant side; R57.9 Shock, unspecified; D63.8 Anemia in other chronic diseases classified elsewhere; I25.10 Atherosclerotic heart disease of native coronary artery without angina pectoris; J43.9 Emphysema, unspecified; K31.7 Polyp of stomach and duodenum; R13.10 Dysphagia, unspecified; Z20.828 Contact with and (suspected) exposure to other viral communicable diseases; Z66 Do not resuscitate; G90.8 Other disorders of autonomic nervous system; F41.1 Generalized anxiety disorder; E83.42 Hypomagnesemia; I49.5 Sick sinus syndrome; I73.9 Peripheral vascular disease, unspecified; K57.30 Diverticulosis of large intestine without perforation or abscess without bleeding; E83.41 Hypermagnesemia; K40.90 Unilateral inguinal hernia, without obstruction or gangrene, not specified as recurrent; I71.4 Abdominal aortic aneurysm, without rupture; K31.9 Disease of stomach and duodenum, unspecified; Z99.2 Dependence on renal dialysis; Z85.46 Personal history of malignant neoplasm of prostate; Z79.899 Other long term (current) drug therapy; Z87.891 Personal history of nicotine dependence; Z88.0 Allergy status to penicillin; Z95.0 Presence of cardiac pacemaker; Z95.5 Presence of coronary angioplasty implant and graft; Z82.49 Family history of ischemic heart disease and other diseases of the circulatory system; I25.2 Old myocardial infarction
CPT/HCPCS: 36415; 36430; 70450; 71045; 80048; 80053; 81001; 82150; 82272; 82607; 82728; 82746; 82977; 83036; 83540; 83605; 83690; 83735; 83880; 84100; 84154; 84439; 84443; 84484; 85025; 85045; 85610; 85730; 86886; 86900; 86901; 86920; 87040; 87081; 87086; 87186; 88305; 93005; 93880; 96365; 97110; 97112; 97161-GP; 97530; 99285; C1758; J0696; J0885; J1200; J1644; J2060; J2250; J2270; J2405; J2997; J3010; J3475; J3480; J7030; J7060; P9016; Q0092

== ENCOUNTER 2020-02-09 08:06 | Inpatient (IN) | payer OTHER, SELFPAY ==
[~2020-02-09] VITALS: Ht 165.1 cm; Wt 59.4 kg
[~2020-02-09 08:06] MED LIST changes: +ATI.5 PO; -LACT10SO11 PO; -LACT10SO40 PO; +LACT10SO86 PO; -LEVO750T2 PO; +MORPHINE SULFATE PO
[2020-02-09 08:10] VITALS: BP 95/50
[2020-02-09] MEDS ORDERED: LEVOFLOXACIN 500 MG/D5W PREMIX 100 ML IV ONE (08:20)
--- NOTE | 2020-02-09 09:27 | NUR ---
PT BIBA AND PLACED IN BED 10. PLACED IN ISOLATION FOR COVID PRECAUTIONS.
--- NOTE | 2020-02-09 09:35 | NUR ---
XR AT BEDSIDE
--- NOTE | 2020-02-09 09:39 | NUR ---
DR. MAZARIEGOS AT BEDSIDE.
--- NOTE | 2020-02-09 10:00 | NUR ---
SWABS COLLECTED AND GIVEN TO PHLEB.
--- NOTE | 2020-02-09 10:00 | NUR ---
Note steff in EDM - 02/09/[address] [facility] PT REPOSITIONED TO LEFT SIDE. PILLOWS PLACED UNDERNEATH, NEW GOWN APPLIED. NEW SHEETS APPLIED TO BED. NEW PULL UP SHEET PLACED UNDERNEATH PATIENT. MOUTH SUCTIONED.
--- NOTE | 2020-02-09 10:19 | NUR ---
LAB AT BEDSIDE.
--- NOTE | 2020-02-09 10:22 | NUR ---
PER VERBAL ORDER OF DR. MAZARIEGOS STRAIGHT CATH # 16 FR Mitchell catheter with 250 ml utilizing sterile technique. Urine sample collected and sent to lab. Pt tolerated procedure WELL.
[2020-02-09] MEDS ORDERED: LORazepam 2 MG/ML VIAL IVP ONE (10:25)
[2020-02-09 10:34] LABS: APPEARANCE,URINE CLOUDY (CLEAR); BILIRUBIN,URINE NEGATIVE (NEGATIVE); BLOOD, URINE 1+ (NEGATIVE); COLOR,URINE YELLOW (YELLOW); LEUKOCYTE ESTERASE ,URINE 3+ (NEGATIVE); NITRITE, URINE NEGATIVE (NEGATIVE); UGLUCOSE NEGATIVE (NEGATIVE)
[2020-02-09 10:34] LABS: BASOPHILS % (AUTO) 0.7 % (0.0-2.0); HEMATOCRIT 30.1 % (36-52); HEMOGLOBIN 9.8 g/dL (12.0-18.0); LYMPHOCYTES # (AUTO) 0.3 K/uL (2.0-11.5); LYMPHOCYTES % (AUTO) 5.2 % (20.5-51.1); MEAN CORPUSCULAR HEMOGLOBIN 34 pg (27-31); MEAN CORPUSCULAR HGB CONC 33 g/dL (33-37); MONOCYTES # (AUTO) 0.2 K/uL (0.8-1.0); MONOCYTES % (AUTO) 3.4 % (1.7-9.3); NEUTROPHILS % (AUTO) 90.7 % (42.2-75.2); PLATELET COUNT (AUTO) 153 K/uL (140-450); RED BLOOD CELL COUNT(AUTO) 2.92 MIL/uL (4.20-6.10); RED CELL DISTRIBUTION WIDTH 17.6 % (11.6-13.7); WHITE BLOOD COUNT (AUTO) 6.7 K/uL (4.8-10.8)
--- NOTE | 2020-02-09 10:34 | NUR ---
REINA FROM [facility] BOARD AND CARE C/O DIFFICULTY BREATHING AND STAFF REPORTS LOW SP02 IN LOW 90S. UPON ARRIVAL PATIENT STATES HE CANNOT CATCH HIS BREATH. RESP EVEN AND UNLABORED. LUNG SOUNDS CLEAR, NO DISTRESS NOTED AT THIS TIME. PATIENT STATES HIS BACK IS GIVING HIM 10/10 PAIN D/T PRESSURE ULCERS. AAOX4. NON AMBULATORY. NO NEURO DEFECITS NOTED AT THIS TIME. DIALYSIS PORT AT RIGHT SUBCLAVIAN.
--- NOTE | 2020-02-09 10:35 | NUR ---
PATIENT IS REQUESTING ANTI-ANXIETY MEDICATION D/T HIGH LEVEL OF ANXIETY. SHARMAINE MAZARIEGOS NOTIFIED
[2020-02-09 10:53] LABS: RBC,URINE NONE SEEN /HPF (0-5)
[2020-02-09 10:54] LABS: WBC,URINE TOO MANY TO COUNT /HPF (0-5)
[2020-02-09 10:58] LABS: ALBUMIN 2.7 g/dL (3.4-5.0); ANION GAP 13.9 (8-16); ASPARTATE AMINOTRANSFERASE 30 U/L (15-37); CARBON DIOXIDE 27.6 mmol/L (21-32); CHLORIDE 99 mmol/L (98-107); GLUCOSE 100 mg/dL (74-106); POTASSIUM 4.5 mmol/L (3.5-5.1); SODIUM SERUM 136 mmol/L (136-145); TOTAL BILIRUBIN 0.4 mg/dL (0.0-1.0); UREA NITROGEN, BLOOD 36 mg/dL (7-18)
[2020-02-09] MEDS ORDERED: FERR325E14 PO (11:00)
[2020-02-09] MEDS ORDERED: ACET-9494 PO (11:00)
[2020-02-09] MEDS ORDERED: DIGO0.122 PO (11:00)
[2020-02-09] MEDS ORDERED: SINE25 PO (11:00)
[2020-02-09] MEDS ORDERED: FOLI1TAB89 PO (11:01)
[2020-02-09] MEDS ORDERED: MULT-1868 PO (11:01)
[2020-02-09 11:09] LABS: CREATININE 5.6 mg/dL (0.6-1.3)
[2020-02-09] MEDS ORDERED: DOCUSATE SODIUM 100 MG GELCAP PO PRN (11:15)
[2020-02-09] MEDS ORDERED: NACL 0.9% 1,000 ML IV SCH (11:15)
[2020-02-09] MEDS ORDERED: HYDROcodone/APAP 5/325 MG 1 TAB TAB PO PRN (11:15)
[2020-02-09] MEDS ORDERED: ONDANSETRON 4 MG/2 ML VIAL IM/IVP PRN (11:15)
[2020-02-09] MEDS ORDERED: ACETAMINOPHEN 325 MG TAB PO PRN (11:15)
--- NOTE | 2020-02-09 11:24 | NUR ---
PER MD PALACIOS VERBAL ORDERS, 1L NS BOLUS INITIATED
[2020-02-09 11:33] LABS: MAGNESIUM 1.8 mg/dL (1.8-2.4)
[2020-02-09 11:34] LABS: PROTHROMBIN TIME 10.2 secs (10.8-13.4)
--- NOTE | 2020-02-09 11:56 | NUR ---
SPOKE WITH PATIENTS NEXT OF KIN, NAPOLEON TOBIAS, REGARDING CONSENT FOR PICC LINE. PT AGREES TO PROCEDURE. PATIENT IS UNABLE TO SPEAK FOR SELF AT THIS TIME. SON ALSO MADE OF US AWARE OF PATIENTS DNR STATUS.
--- NOTE | 2020-02-09 11:59 | NUR ---
DIRECTOR OF BOARD AND CARE FACILITY: ALISHA [phone]
--- NOTE | 2020-02-09 14:01 | NUR ---
PT REPOSITIONED ONTO RIGHT SIDE. RESP EVEN AND UNLABORED. ALL NEEDS METS AT THIS TIME
[2020-02-09] MEDS ORDERED: CALCIUM CARBONATE 500 MG TAB PO PRN (15:10)
--- NOTE | 2020-02-09 15:13 | NUR ---
PT REPOSITIONED FOR COMFORT. VSS. ALL NEEDS MET AT THIS TIME
--- NOTE | 2020-02-09 15:50 | NUR ---
PT TOOK OUT IV THAT WAS IN PLACE
[2020-02-09] MEDS ORDERED: ALBUMIN HUMAN 25% 100 ML IV ONE (18:16)
--- NOTE | 2020-02-09 18:25 | NUR ---
VORSergio VEGA TO USE DIALYSIS TUNNELED CATHETER FOR FLUIDS AND ALBUMIN
--- NOTE | 2020-02-09 18:30 | NUR ---
ALBUMIN 25% THERAPY AT 100ML/HR INITIATED VORSergio VEGA
--- NOTE | 2020-02-09 18:45 | NUR ---
MD CARRASQUILLO NOTIFIED REGARDING ACCUCHECK 79, PATIENT IS NPO
[2020-02-09] MEDS ORDERED: DEXT 5% /NACL 0.9% 1,000 ML IV SCH (18:50)
--- NOTE | 2020-02-09 19:20 | NUR ---
RECEIVED REPORT FROM DEAN COLLAZO FOR CONTINUITY OF CARE.
--- NOTE | 2020-02-09 19:35 | NUR ---
PT PRESENTS LAYING IN BED. SPO2 AT 96% ON 2 L OF OXYGEN VIA NC. HE IS AWAKE & CONFUSED. NOTED WITH RT SUBCLAVIAN DIALYSIS SITE. PT WAS REPOSITION FOR COMFORT AND SIDE RAILS X 2 FOR SAFETY. ON CARDIAC MONITORING, PULSE OXIMETRY AND BP MONITORING. ALBUMIN RUNNING AT THIS TIME 100ML/HR. FOR LOW BP. BED WAS LOCKED AND PLACED IN LOWEST POSITION. WILL CONTINUE TO MONITOR.
[2020-02-09] MEDS ORDERED: NOREPINEPHRINE 4 MG/4 ML VIAL IV ONE (20:03)
--- NOTE | 2020-02-09 20:15 | NUR ---
ALBUMIN INFUSION FINISHED AT THIS TIME PT STILL PRESENTS WITH LOW BP OF: 74/[address] CARRASQUILLO NOTIFIED AMD GAVE NEW ORDERS FOR LEVOPHED TO BE TITRATED FOR MAP >65. PER DR. NEIDA HYATT TO ADMINISTER MEDICATIONS VIA RT SUBCLAVIAN ACCESS. GAVE ALSO ORDERS TO CHANGE PT STATUS TO ICU HOLD AND TO DECREASE ORDER FOR D5% NS 0.9% TO 20ML/HR. WILL CONTINUE TO MONITOR.
--- NOTE | 2020-02-09 20:20 | NUR ---
SEE IV SPREADSHEET FOR VS FOR LEVOPHED.
[2020-02-09] MEDS: NOREPINEPHRINE 4 MG in DEXTROSE 5% 250 ML IV PRN (20:25)
[2020-02-09] MEDS: DEXT 5% /NACL 0.9% 1,000 ML IV SCH (20:30)
--- NOTE | 2020-02-09 20:35 | NUR ---
PT NOT RESPOND TO INITIAL DOSE OF LEVOPHED. INCREASED TITRATION TO 4MCG/MIN. PT WILL CONTINUE ON CARDIAC MONITORING, BP MONITORING, AND PULSE OXIMETRY. BED LOCKED AND IN LOWEST POSITION.
[2020-02-09] MEDS: DOXEPIN 25 MG CAP PO SCH (21:00)
--- NOTE | 2020-02-09 21:20 | NUR ---
ACCUCHECK:72. PER DR. ANDREW NO NEW ORDERS GIVEN, "ONLY TO CONTINUE TO MONITOR."
--- NOTE | 2020-02-09 21:34 | NUR ---
PERINEAL CARE DONE WAS NOTED WITH A HARI AREA IN SACRAL AREA. PHOTOS TAKEN REFER TO WOUND DOCUMENTATION.
--- NOTE | 2020-02-09 21:35 | NUR ---
NOTIFIED DR. CARRASQUILLO THAT DOXEPIN MEDICATION WAS NOT AVAILABLE AT SITE. GAVE NEW TO TO DC MEDICATION.
[2020-02-09] MEDS: ESCITALOPRAM 20 MG TAB PO SCH (22:16)
[2020-02-09] MEDS: FERROUS SULFATE 325 MG TABEC PO SCH (22:16)
--- NOTE | 2020-02-09 22:20 | NUR ---
PT RESPONDING TO LEVOPHED AT 4MCG/MIN WILL TITRATE PT DOWN TO 2MCG/MIN. BP: 104/65 AND MAP OF 80.
--- NOTE | 2020-02-09 23:34 | NUR ---
PT WAS REPOSITION FOR COMFORT. HOB WAS ADJUSTED TO DESIRE HEIGHT. BED WAS LOCKED AND PLACED IN LOWEST POSITION. WILL REMAIN ON CARDIAC MONITORING, BP MONITORING AND PULSE OXIMETRY.
--- NOTE | 2020-02-09 23:35 | NUR ---
PT NOT RESPONDING TO INITIAL DOSE OF LEVOPHED. INCREASED TO 4 MCG/MIN.
--- NOTE | 2020-02-10 00:56 | NUR ---
PT C/O "ACHING" 6/10 LOWER BACK PAIN NORCO PO GIVEN FOR PAIN.
--- NOTE | 2020-02-10 01:16 | NUR ---
ACCUCHECK 74 WILL CONTINUE TO MONITOR PT. REMAINS ON CARDAIC MONITORING, BP MONITORING AND PULSE OXIMETRY.
--- NOTE | 2020-02-10 01:45 | NUR ---
PT BP: 101/64 MAP OF 84. LEVOPHED TITRATED TO 2 MCG/MIN.
--- NOTE | 2020-02-10 01:50 | NUR ---
PT VERBALIZED MINOR RELIEF OF PAIN AT THIS TIME. VERBALIZES A DECREASE IN PAIN LEVEL FROM 6/10 TO 2/10. PT ABLE TO TOLERATE PAIN AT THIS TIME.
--- NOTE | 2020-02-10 02:05 | NUR ---
PT'S BP AND MAP DECREASED TO: 89/54 INCREASED LEVOPHED TO 4MCG/MIN.
--- NOTE | 2020-02-10 03:13 | NUR ---
PT LAYING IN BED, OXYGEN AT 2 L VIA NC. PT REQUIRES CONSTANT REDIRECTION & ORIENTATION FROM STAFF. URINAL PLACED AT BEDSIDE PER PT REQUEST. PT CONTINUES ON BUS ASSISTANT, BP MONITORING AND PULSE OXIMETRY.
[2020-02-10] MEDS ORDERED: LORazepam 0.5 MG TAB ONE ×2 (04:07→10:18)
--- NOTE | 2020-02-10 04:16 | NUR ---
DR. CARRASQUILLO NOTIFIED THAT PT WAS ANXIOUS/RESTLESS AND THAT PT WAS REQUESTING ATIVAN FOR ANXIETY. GAVE NEW ORDER FOR PO ATIVAN 0.5MG.
[2020-02-10] MEDS ORDERED: LORazepam 0.5 MG TAB PO SCH (04:20)
--- NOTE | 2020-02-10 04:35 | NUR ---
PT BP TRENDING DOWN ON 4 MCG/MIN OF LEVOPHED, INCREASED LEVOPHED TO 6 MCG/MIN.
--- NOTE | 2020-02-10 05:02 | NUR ---
Patient appears to be resting comfortably in bed. Respirations even and unlabored. Continues on cardiac monitoring, bp monitoring, pulse oximetry. Bed locked and in lowest position.
--- NOTE | 2020-02-10 05:25 | NUR ---
PT'S BP: 117/66 MAP >65 AT THIS TIME. LEVOPHED WAS TITRATED TO 4 MCG/MIN.
--- NOTE | 2020-02-10 06:13 | NUR ---
PT WAS REPOSITIONED FOR COMFORT AT THIS TIME. REQUESTED TO REMOVE SOCKS AT THIS TIME.
--- NOTE | 2020-02-10 06:55 | NUR ---
PERINEAL CARE DONE, SKIN WAS COOL AND DRY. PT WAS ALSO REPOSITION AND ADJUSTED HEAD OF THE BED TO A COMFORTABLE POSITION. WILL CONTINUE ON CARDIAC MONITORING, PULSE OXIMETRY AND BP MONITORING. ACCUCHECK AT THIS TIME 74.
--- NOTE | 2020-02-10 07:08 | NUR ---
LAB AT BEDSIDE.
--- NOTE | 2020-02-10 07:10 | NUR ---
GAVE REPORT TO WERNER COLLAZO FOR CONTINUITY OF CARE.
[2020-02-10 07:27] LABS: BASOPHILS % (AUTO) 0.3 % (0.0-2.0); HEMOGLOBIN 8.2 g/dL (12.0-18.0); LYMPHOCYTES # (AUTO) 0.6 K/uL (2.0-11.5); MEAN CORPUSCULAR HEMOGLOBIN 34 pg (27-31); MEAN CORPUSCULAR HGB CONC 33 g/dL (33-37); MEAN CORPUSCULAR VOLUME 102.7 fL (80-94); MONOCYTES # (AUTO) 0.4 K/uL (0.8-1.0); MONOCYTES % (AUTO) 4.9 % (1.7-9.3); NEUTROPHILS # (AUTO) 7.6 K/uL (1.8-7.7); PLATELET COUNT (AUTO) 133 K/uL (140-450); RED BLOOD CELL COUNT(AUTO) 2.44 MIL/uL (4.20-6.10); RED CELL DISTRIBUTION WIDTH 17.3 % (11.6-13.7); WHITE BLOOD COUNT (AUTO) 8.6 K/uL (4.8-10.8)
[2020-02-10 07:38] LABS: ANION GAP 13.2 (8-16); CARBON DIOXIDE 25.8 mmol/L (21-32); CHLORIDE 103 mmol/L (98-107); GLUCOSE 87 mg/dL (74-106); SODIUM SERUM 138 mmol/L (136-145); UREA NITROGEN, BLOOD 39 mg/dL (7-18)
--- NOTE | 2020-02-10 07:38 | NUR ---
TRANSFER OF CARE AT THIS TIME FROM ZAY LAMBERT
[2020-02-10 08:14] LABS: CREATININE 5.1 mg/dL (0.6-1.3)
[2020-02-10] MEDS ORDERED: cefTRIAXone 1,000 MG VIAL ONE (08:22)
[2020-02-10] MEDS: PANTOPRAZOLE 40 MG INJ VIAL IVP SCH (08:40)
[2020-02-10] MEDS: FOLIC ACID 1 MG TAB PO SCH (08:42)
--- NOTE | 2020-02-10 08:47 | NUR ---
EKG AT BEDSIDE
--- NOTE | 2020-02-10 08:54 | NUR ---
CALLED ELYSSA FROM PHARMACY FOR PTS IRON AND MULTIVIT TAB.
[2020-02-10 08:57] LABS: LYMPHOCYTES % (AUTO) 6.5 % (20.5-51.1); NEUTROPHILS % (AUTO) 88.3 % (42.2-75.2)
[2020-02-10] MEDS ORDERED: HEPARIN PER PHARMACY MC PRN (09:10)
--- NOTE | 2020-02-10 09:11 | NUR ---
PT REPOSITIONED IN BED AND SHIFTED WEIGHT ONTO R SIDE.
[2020-02-10] MEDS: FERROUS SULFATE 325 MG TABEC PO SCH ×2 (09:17→21:05)
[2020-02-10] MEDS: MULTIVITAMIN/MINERALS 1 TAB PO SCH (09:17)
--- NOTE | 2020-02-10 09:46 | NUR ---
DR. CARRASQUILLO AT BEDSIDE EVALUATING PT.
[2020-02-10] MEDS ORDERED: hePARIN / DEXT 5% PREMIX 250 ML IV SCH (09:50)
--- NOTE | 2020-02-10 10:04 | NUR ---
RECIEVED CALL FROM PHARMACY REGARDING HEPARIN DRIP. PER PHARMACY NOT TO START DRIP UNTIL NOON AND NO BOLUS DOSE TO BE GIVEN.
--- NOTE | 2020-02-10 10:25 | NUR ---
PT AGITATED PULLING OFF PULSE OX, 3 LEAD ECG, AND BP CUFF.
[2020-02-10] MEDS: LORazepam 0.5 MG TAB PO PRN ×2 (10:27→18:18)
--- NOTE | 2020-02-10 10:31 | NUR ---
PTS WEIGHT SHIFTED ONTO L SIDE.
--- NOTE | 2020-02-10 10:32 | NUR ---
PRN ATIVAN GIVEN PO
--- NOTE | 2020-02-10 11:25 | NUR ---
LEVOPHED TITRATED DOWN TO 3 MCG/MIN. PT BP 119/73, HR 122, 02 94
--- NOTE | 2020-02-10 11:36 | NUR ---
LAURA CARE PROVIDED TO PT, GOWN CHANGED AND PT REPOSITIONED IN BED.
--- NOTE | 2020-02-10 11:59 | NUR ---
CALLED DIETARY REQUESTING FOR PTS LUNCH TO BE PUREED.
--- NOTE | 2020-02-10 12:12 | NUR ---
DR. CARRASQUILLO NOTIFIED TO PLACE ORDER FOR PLASMA FOR PT PER MEDICAL REVIEWER.
--- NOTE | 2020-02-10 12:15 | NUR ---
PUREE DIET AT BEDSIDE. FED PT PUREED DIET. PT REPORTS "IM NOT HUNGRY, ITS TOO SPICY". PT COMPLETED 50% OF APPLESAUCE.
--- NOTE | 2020-02-10 12:24 | NUR ---
PHAMOLLY CALLED NO ANSWER, CALLED HOUSE SUP FOR ANOTHER BAG OF LEVOPHED.
--- NOTE | 2020-02-10 13:00 | NUR ---
LEVOPHED TITRATED DOWN TO 2 MCG/MIN. PT BP 126/68, HR 134, 02 93
[2020-02-10] MEDS: hePARIN / DEXT 5% PREMIX 250 ML IV SCH (14:19)
--- NOTE | 2020-02-10 14:19 | NUR ---
LEVOPHED DC. PTS BP 159/112
--- NOTE | 2020-02-10 14:30 | NUR ---
Sina artis in ED - 02/10/20 at 1636 by [facility] UPON ENTRANCE OF ROOM, PT FOUND WITHOUT OXYGEN. PT ENCOURAGED TO KEEP OXYGEN ON AND NOT TO PULL ON LEADS, O2 OR PULSE OX.
--- NOTE | 2020-02-10 14:38 | NUR ---
BP CUFF MOVED TO PTS RIGHT ARM BP 84/28
--- NOTE | 2020-02-10 14:40 | NUR ---
PTS BP ON RIGHT ARM 84/48
--- NOTE | 2020-02-10 14:44 | NUR ---
PTS BP ON L ARM 99/59
--- NOTE | 2020-02-10 14:45 | NUR ---
PT REPOSITIONED IN BED.
--- NOTE | 2020-02-10 14:56 | NUR ---
NOREPI RESTARTED PTS BP 73/40
--- NOTE | 2020-02-10 14:59 | NUR ---
PT O2 SAT 76% ON 5L NC. PT PLACED ON NONREBREATHER 15L
--- NOTE | 2020-02-10 15:16 | NUR ---
LAB AT BEDSIDE FOR REPEAT TROP
--- NOTE | 2020-02-10 16:10 | NUR ---
PTS 02 100% ON VENTURI MASK, O2 DECREASED TO 10L/MIN
--- NOTE | 2020-02-10 16:36 | NUR ---
UPON ENTRANCE OF ROOM, PT FOUND WITHOUT OXYGEN. PT ENCOURAGED TO KEEP OXYGEN ON AND NOT TO PULL ON LEADS, O2 OR PULSE OX.
--- NOTE | 2020-02-10 17:40 | NUR ---
LAURA CARE PROVIDED FOR PT, PT TURNED FOR COMFORT.
--- NOTE | 2020-02-10 18:18 | NUR ---
PT AGITATED, PULLING AT OXYGEN AND LEADS. PT GIVEN PRN ATIVAN PER ORDER
--- NOTE | 2020-02-10 18:50 | NUR ---
PAGED FOR PTS TACHYCARDIA [id number]
--- NOTE | 2020-02-10 19:10 | NUR ---
SEE IV SPREADSHEET OF LEVOPHED FOR UPDATED VITALS.
--- NOTE | 2020-02-10 19:11 | NUR ---
TRANSFER OF CARE AT THIS TIME TO ZAY BRYAN
--- NOTE | 2020-02-10 19:12 | NUR ---
REPORT RECEIVED FROM ZAY CALDERA FOR CONTINUATION OF CARE.
--- NOTE | 2020-02-10 19:19 | NUR ---
PT TOOK OFF OXYGEN MASK SAO2 90% . MASK PLACED BACK ON PT , CURRENT SAO2 98%. pT ENCOURAGED TO KEEP MASK ON AT THIS TIME.
--- NOTE | 2020-02-10 19:27 | NUR ---
PER DR. SAHA OBTAIN EKG AND LET HER KNOW IF PT IS IN AFIB.
--- NOTE | 2020-02-10 19:31 | NUR ---
PT CURRENT BP 78/57 - LEVOPHED DRIP INCREASED BY 2 MCG , CURRENTLY AT 5 MCG/MIN.
--- NOTE | 2020-02-10 19:44 | NUR ---
PT BP AT 78/53 INCREASED LEVOPHED DRIP UP TO 7 MCG AT THIS TIME.
--- NOTE | 2020-02-10 19:49 | NUR ---
PER DR. SAHA CALL NEUROLOGIST AND SEE WHAT THEY WOULD LIKE TO DO WHEN THE PT'S HR JUMPS TO 190S.
--- NOTE | 2020-02-10 19:50 | NUR ---
PT BP CURRENTLY AT 86/62 mmHg , INCREASED LEVOPHEN DRIP BY 1 MCG ,CURRENT ON 8 MCG/ MIN AT THIS TIME.
--- NOTE | 2020-02-10 19:58 | NUR ---
PT BP CURRENTLY 97/66 mmHg, MAP 77 , MAINTAINING LEVOPHED DRIP AT 8MCG / MIN AT THIS TIME.
--- NOTE | 2020-02-10 20:00 | NUR ---
RUE restraints noted - after assessment of restraints skin tear noted on right forearm. Restraints d/c at this time. Wound care provided and covered at this time. Will take pictures and document further at another time.
--- NOTE | 2020-02-10 20:11 | NUR ---
PT BP DECREASED TO 86/58 mmHg , INCREASED LEVOPHED DRIP TO 10 MCG/MIN AT THIS TIME.
--- NOTE | 2020-02-10 20:25 | NUR ---
pt c/o of severe back pain at this time. Will review PRN pain medications at this time to help relieve pt pain.
[2020-02-10] MEDS: DEXT 5% /NACL 0.9% 1,000 ML IV SCH (20:30)
--- NOTE | 2020-02-10 20:30 | NUR ---
PT TAKING MASK OFF CONTINUOUSLY , PT PLACED ON 4L NC AT THIS TIME, CURRENT SAO2 97%.
[2020-02-10] MEDS: DOXEPIN 25 MG CAP PO SCH (20:36)
[2020-02-10] MEDS: MORPHINE SULFATE 2 MG/ML SYR IVP PRN (20:57)
[2020-02-10] MEDS: ATORVASTATIN 20 MG TAB PO SCH (21:05)
[2020-02-10] MEDS: ESCITALOPRAM 20 MG TAB PO SCH (21:05)
--- NOTE | 2020-02-10 21:25 | NUR ---
PER DISULFURIZER TENDER ADMINISTER PO CARDIZEM 30 MG Q6HR DUE TO ELEVATED HR.
[2020-02-10] MEDS ORDERED: DILTIAZEM 30 MG TAB ONE (21:49)
--- NOTE | 2020-02-10 21:50 | NUR ---
pt repositioned for comfort at this time.
--- NOTE | 2020-02-10 21:55 | NUR ---
Administered 30 mg Cardizem PO , per Battery Tester medication order.
[2020-02-10] MEDS: DILTIAZEM 30 MG TAB PO SCH (22:09)
--- NOTE | 2020-02-10 22:41 | NUR ---
pt repositioned to Left side for comfort. Pt keeps spitting and taking off mask. Pt placed on NC 4L and given emesis bag to spit into at this time.
--- NOTE | 2020-02-10 23:05 | NUR ---
NEW LEVOPHED DRIP STARTED AT THIS TIME.
[2020-02-10] MEDS ORDERED: NOREPINEPHRINE 4 MG/4 ML VIAL IV ONE (23:47)
--- NOTE | 2020-02-10 23:49 | NUR ---
notified Dr. Ortiz regarding pt critical lab value , troponin 5.230. No changes in orders at this time , per Dr. Ortiz.
[2020-02-11] VITALS (52 sets, daily range): BP systolic 78–146; BP diastolic 45–99
[2020-02-11] MEDS ORDERED: DILTIAZEM 30 MG TAB PO SCH
--- NOTE | 2020-02-11 00:56 | NUR ---
PT BP INCREASED TO 118/83 mmHg , DECREASED LEVOPHED DRIP BY 2 MCG/MIN , TOTAL 12 MCG/MIN RUNNING AT THIS TIME.
--- NOTE | 2020-02-11 01:05 | NUR ---
PT BP 112/75 mmHg, decreased Levophed to 10 mcg/min at this time.
--- NOTE | 2020-02-11 02:00 | NUR ---
PT REPOSITIONED FOR COMFORT AT THIS TIME.
--- NOTE | 2020-02-11 03:30 | NUR ---
PERINEAL CARE PROVIDED AT THIS TIME, PT REPOSITIONED FOR COMFORT. NO DISTRESS NOTED AT THIS TIME.
--- NOTE | 2020-02-11 04:00 | NUR ---
WOUND CARE PROVIDED TO RT FOREARM SKIN TEAR. WOUND PICTURES TAKEN AND DOCUMENTED, WOUND DRESSED AT THIS TIME.
--- NOTE | 2020-02-11 04:45 | NUR ---
Patient will be admitted to care of Dr. Ortiz. Admited to ICU. Will go to room 130B . Belongings list completed. Report to ZAY Andre.
[2020-02-11] MEDS: DILTIAZEM 30 MG TAB PO SCH ×4 (05:19→18:50)
--- NOTE | 2020-02-11 08:44 | NUR ---
PATIENT HAS BEEN SCREENED AND CATEGORIZED HIGH NUTRITION RISK. PATIENT WILL BE SEEN WITHIN 1-2 DAYS OF ADMISSION. 02/11/[address]
[2020-02-11] MEDS: MULTIVITAMIN/MINERALS 1 TAB PO SCH (09:00)
[2020-02-11] MEDS: FOLIC ACID 1 MG TAB PO SCH (09:00)
[2020-02-11] MEDS ORDERED: DIGOXIN 0.125 MG TAB PO SCH (09:00)
[2020-02-11] MEDS: PANTOPRAZOLE 40 MG INJ VIAL IVP SCH (09:00)
[2020-02-11] MEDS: DEXAMETHASONE 4 MG/ML VIAL IVP SCH (09:00)
[2020-02-11] MEDS: ECOTRIN 81 MG TABEC PO SCH (09:00)
[2020-02-11] MEDS: FERROUS SULFATE 325 MG TABEC PO SCH ×2 (09:00→21:18)
[2020-02-11] MEDS ORDERED: Z-GUARD PASTE TP ONE (09:54)
[2020-02-11] MEDS ORDERED: ALBUMIN HUMAN 25% 200 ML IV ONE (10:44)
--- NOTE | 2020-02-11 11:05 | NUR ---
*ST: Bedside Swallow Evaluation* Pt is 84 yo M BIBA from [facility] 02/09/2020 c hypoxia, hypotension, AMS. Per report, pt missed his HD appointment 02/07. Also per report, pt on hospice care at the time. Pt +COVID-19 PCR 02/08. PMHx CVA c L-sided wakness, CAD s/p stents and s/p pacemaker, ESRD on HD, emphysema, prostate CA. CXR 02/08 - cardiomegaly & vascular congestion. Cleared with RN, Luma, for BDSE. Pt seen bedside, on O2 nc, alert, verbalizing wants and needs in short Turkish phrases/sentences in clear vocal quality. Pt has baseline productive cough with expectoration of pinkish moderate thick phlegm during session. Pt reported no appetite at the moment but verbalized eating "everything" at the [facility] prior to admit. Unable to verify information from transfer paperwork. Pt observed to drink ~5oz of thin liquids by single straw sip when taking 6-7 medications 1 at a time with RN and VP CUSTOMER SERVICE present with no significant difficulty. Noted fair dentition. Pt only took 1 bite of saltine cracker with fair manipulation and clearing. No residue and no overt coughing nor throat clearing observed with trials given. Vocal quality remained clear, dry, and unchanged post PO's. POC d/w pt and pt's RN. P: Rec MS/Thin Liquids vs Puree/Thin Liquids per Pt preference, feed-assist Follow safe swallow strategies, oral care, aspiration precautions Nsg to monitor and notify VP CUSTOMER SERVICE of changes in status -Ana Alejandre MA, CCC-VP CUSTOMER SERVICE Addendum: 02/11/20 at [address] Amended: Links added.
[2020-02-11 11:18] LABS: BASOPHILS % (AUTO) 0.2 % (0.0-2.0); HEMATOCRIT 26.7 % (36-52); HEMOGLOBIN 8.8 g/dL (12.0-18.0); LYMPHOCYTES # (AUTO) 0.4 K/uL (2.0-11.5); LYMPHOCYTES % (AUTO) 5.5 % (20.5-51.1); MEAN CORPUSCULAR HEMOGLOBIN 33 pg (27-31); MEAN CORPUSCULAR HGB CONC 33 g/dL (33-37); MEAN CORPUSCULAR VOLUME 101.2 fL (80-94); MONOCYTES # (AUTO) 0.1 K/uL (0.8-1.0); MONOCYTES % (AUTO) 1.7 % (1.7-9.3); NEUTROPHILS # (AUTO) 7.4 K/uL (1.8-7.7); NEUTROPHILS % (AUTO) 92.6 % (42.2-75.2); PLATELET COUNT (AUTO) 145 K/uL (140-450); RED BLOOD CELL COUNT(AUTO) 2.64 MIL/uL (4.20-6.10)
[2020-02-11] MEDS ORDERED: ALBUMIN HUMAN 25% 100 ML IV ONE ×2 (11:20)
--- NOTE | 2020-02-11 11:21 | NUR ---
WOUND CARE EVALUATION NOTES: REASON FOR EVALUATION: LOW TOMAS SCALE AND SKIN TEAR TO RIGHT ARM SKIN ASSESSMENT DONE ON WITH THIS 84 Y/O MALE PATIENT ADMITTED TO [facility] WITH COVID POSITIVE, PT IS AWAKE BUT CONFUSE, SKIN IS WARM AND DRY, UPPER AND LOWER EXTREMITIES MULTIPLE SCRATCH KEITH. BLE NO EDEMA TO BILATERAL LOWER LEGS. BILATERAL DORSAL PEDAL PULSES PRESENT AND NORMAL, CAPILLARY REFILLED <3 SEC. PLAN OF CARE DISCUSSED WITH PRIMARY RN AND PT. PT UNABLE TO COMPREHEND OF TEACHING INTEGUMENTARY: -RIGHT ARM SKIN TEAR 3X2CM SUPERFICIAL DEPTH, WOUND BED IS RED AND CLEAN, MOIST NO ODOR, LAURA WOUND SKIN INTACT -UPPER AND LOWER EXTREMITIES MULTIPLE SCABS AND SCRATCH KEITH. -SACRALCOCCYX PRESSURE INJURY STAGE 1 2X2CM NON BLANCHABLE LAURA WOUND SKIN MAD, SKIN RED AND INTACT -LEFT AND RIGHT HEELS THIN CALLUS RECOMMENDATIONS: -CLEANSE RIGHT FOREARM SKIN TEAR WITH NS, PAT DRY, APPLY VERSATEL DRESSING CHANGE Q5 DAYS AND PRN IF SOILING -APPLY HYDRAGUARD TO ALL EXTREMITIES BID AND IRENE -CLEANSE SCRALCOCCYX WITH MILD SOAP AND WATER, PAT DRY, APPLY THIN LAYER OF Z GUARD AND FOAM DRESSING QD AND PRN IF SOILING, OFFLOADING AREAS -KEEP SKIN DRY AND CLEAN AT ALL TIME -OFFLOAD BILATERAL HEELS BY PLACING PILLOWS UNDER CALVES UNLESS OTHERWISE CONTRAINDICATED -PRESSURE REDISTRIBUTION SURFACE THERAPY -TURN AND REPOSITION Q2H, OFFLOAD SACRALCOCCYX BY TURNING RIGHT AND LEFT -CONTINUE TO FOLLOW RD RECOMMENDATIONS PLEASE CONTACT WOUND CARE NURSE FOR ANY QUESTIONS AND CHANGES IN SKIN CONDITION.
[2020-02-11] MEDS ORDERED: ALTEPLASE 2 MG VIAL MC SCH (11:30)
[2020-02-11] MEDS: hePARIN / DEXT 5% PREMIX 250 ML IV SCH (12:55)
--- NOTE | 2020-02-11 13:03 | NUR ---
DISCHARGE PLANNING: CONTACTED VALARIE OF [facility] TO GATHER MORE INFORMATION. PER VALARIE, PATIENT IS NOT FROM [facility]. CONTACTED PATIENT'S SON NAPOLEON TOBIAS AT [phone]. PER NAPOLEON, PATIENT CAME FROM [facility] AND CARE WITH [facility]. PER NAPOLEON, HE WANTS THE PATIENT TO GO BACK WITH HOSPICE BUT TO A SNF CLOSE TO HOME. I ALSO INQUIRED ABOUT CODE STATUS, PER NAPOLEON PATIENT IS DNI/DNR, EMERGENCY MEDS ONLY AND NO COMPRESSION. DR. YAP MADE AWARE. Addendum: 02/11/20 at 1323 by Debbie Mancilla CM REACHED OUT TO [facility] [phone], ABLE TO SPEAK TO [facility] ULTRASOUND TECHNICIAN. SHE CONFIRMED THAT THIS PATIENT WAS ON THEIR SERVICES PRIOR TO ADMISSION. SHE ALSO STATED THAT THE BOARD AND CARE CALLED 911 DUE TO THEY WERE SUSPECTING COVID. SHE STATED THEY CAN TAKE THE PATIENT BACK ONCE READY FOR DC. SHE PROVIDED ME WITH THEIR FAX NUMBER [phone] TO SEND CLINICALS. Addendum: 02/11/20 at 1420 by Debbie Mancilla CM CORRECTION: PHONE NUMBER FOR [facility] [phone]. [address] YAP, WILL MONITOR PATIENT OVERNIGHT AND FOR POSSIBLE DC TOMORROW WITH HOSPICE. ORDER TRANSCRIBED. BHARTI ULTRASOUND TECHNICIAN OF [facility] MADE AWARE. SHE STATED SHE WILL WAIT FOR THE CLINICALS AND WILL HAVE HER COORDINATOR REACH OUT TO THE SON SINCE PATIENT DOES NOT HAVE SECONDARY INSURANCE TO COVER ROOM AND BORAD AT THE [facility]. SHE ALSO CONFIRMED THAT THEY ARE ABLE TO ACCEPT COVID POSITIVE PATIENTS. Addendum: 02/12/20 at 1410 by Debbie Mancilla LATE ENTRY FOR TODAY: PER BHARTI OF [facility], THEY ARE WORKING WITH [facility] [phone] IF THEY ARE ABLE TO TAKE THE PATIENT. SHE STATED SHE WILL UPDATE ME IF [facility]. 1405: SPOKE TO BHARTI AGAIN. PER BHARTI THEY ARE NOT ABLE TO GIP AND IS REQUESTING IS WE CAN DC PATIENT SKILLED FIRST AND THEN HOSPICE AFTER. SHE ALSO STATED THAT SHE WILL FOLLOW UP WITH [facility] [employer] [facility] [employer] IF THE ARE ABLE TO ACCEPT NEW COVID PATIENTS. DR. YAP MADE AWARE. ORDER FOR PT TRANSCRIBED. Addendum: 02/12/20 at 1421 by Debbie Mancilla CM CONTACTED PATIENT'S SON NAPOLEON TO DISCUSS DC PLAN, NO ANSWER. LEFT MESSAGE. WILL FOLLOW UP. Addendum: 02/12/20 at 1517 by Debbie Mancilla CM RECEIVED A CALL BACK FROM PATIENT'S SAVANAH VILLEGAS. ISELA MAYS TO FIND SNF CLOSER TO [facility]GEA. Addendum: 02/13/20 at 1222 by Debbie Mancilla CM CONTACTED CHANCE MADE HER AWARE THAT PT SAW THE PATIENT AND THERE IS NO NEED FOR PT INTERVENTION DUE TO PATIENT BEING BED BOUND. SHE STATED SHE WILL REACH OUT TO OTHER [facility] IF THEY ARE ABLE TO ACCEPT COVID POSITIVE PATIENTS ON HOSPICE AND THE SON WILL BE ABLE TO AFFORD THE ROOM AND BOARD. SHE STATED SHE WILL GET BACK TO ME FOR UPDATES. CONTACTED PATIENT'S SON NELLY, NO ANSWER. LEFT MESSAGE. WILL FOLLOW UP. Addendum: 02/13/20 at 1531 by Og Fan SS MERON CONTACTED NAPOLEON TOBIAS [phone]. MERON SPOKE WITH NAPOLEON AND INFORMED HIM THAT [facility] IS UNABLE TO FIND PLACEMENT FOR FATHER. PER [facility], SECOND COOK AND BAKER KAMILA HAD INFORMED NAPOLEON. NAPOLEON STATED HE WAS AGREEABLE FOR PATIENT TO BE UNDER DIFFERENT HOSPICE AND WAS AGREEABLE FOR PATIENT TO GO TO [facility] OR [facility]. MERON FAXED CLINICALS TO [facility] AND [facility]. Addendum: 02/13/20 at 1717 by Felicia Menendez CM PALMA TRISTAN: PATIENT RECEIVES DIALYSIS AT [facility] [phone] M-[phone] AT 1:15 PM. HOWEVER PATIENT IS COVID POSITIVE SO WILL HAVE TO RECEIVE DIALYSIS AT [facility] DIALYSIS [phone] Addendum: 02/13/20 at 1729 by Felicia Menendez CM PALMA TRISTAN: SPOKE TO CINTHYA AT [facility] [phone] THEY ARE ABLE TO ACCEPT THIS PATIENT. THERE DAYS ARE T,TH,SAT. PROVIDED ALEXIS AT [facility] THE INFORMATION FOR [facility] DIAYSIS. FAXED PATIENTS CLINICALS Addendum: 02/13/20 at 1733 by Debbie Mancilla CM INFORMED THAT CHAIR TIME AT [facility] WILL BE , BUT NO TIME YET. PER DR. YAP HOLD OFF ON DC FOR NOW, WILL HAVE DIALYSIS TOMORROW AND DC AFTER. WILL FOLLOW UP. Addendum: 02/14/20 at 0902 by Og BHAKTA MERON CONTACTED PATIENT'S SON NAPOLEON TOBIAS [phone] TO DISCUSS DISCHARGE PLAN AND TO SEE IF HE HAS SPOKEN TO HOSPICE. MERON LEFT VM. Addendum: 02/14/20 at 1142 by Og BHAKTA MERON WAS CONTACTED BY NAPOLEON TOBIAS [phone] REGARDING DISCHARGE PLAN. PER NAPOLEON HE HAS BEEN IN CONTACT WITH ONESIMO. NAPOLEON STATED THAT HIM AND ONESIMO HAVE BEEN MAKING ARRANGEMENTS FOR PATIENT'S DISCHARGE. NAPOLEON REQUESTED NURSING STATION PHONE NUMBER. MERON TRANSFERRED NAPOLEON. Addendum: 02/14/20 at 1157 by Debbie Mancilla CM PER ONESIMO OF [facility], SHE WAS ABLE TO GET A HOLD OF THE PATIENT'S SON NELLY REGARDING DIALYSIS. PER ONESIMO PATIENT'S SON DOES NOT WANT FEEDING TUBE WELL. INFORMED HER THAT [facility] IS ABLE TO ACCEPT. PER [facility] SHE WILL REACH OUT TO [facility]. WILL FOLLOW UP. Addendum: 02/14/20 at 1642 by Debbie Mancilla CM PER ONESIMO, SHE IS WAITING FOR PATIENT'S SON TO MAKE FINAL DECISION. WILL FOLLOW UP. Addendum: 02/15/20 at 0922 by Felicia Menendez CM DC DECORATIVE ENGRAVER: SPOKE TO HARJIT AT [facility] [phone]. [address] [facility] [id number]. PATIENT IS SCHEDULED T,,SAT AT 4:45 AM. PATIENT WILL START THIS TUESDAY. NOTIFIED ALEXIS AT [facility] OF PATIENTS CHAIR TIME AND LOCATION. Addendum: 02/15/20 at 1210 by Felicia Menendez CM DC DECORATIVE ENGRAVER: SPOKE TO PATIENTS SON NAPOLEON TOBIAS TO DISCUSS DC TO [facility] TODAY AND DISCUSSED RIGHTS OF MEDICARE. HE WAS AGREEABLE TO HIS FATHER GOING TO [facility] AND HAD NO FURTHER QUESTIONS REGARDING DISCHARGE. TRANSPORTATION HAS BEEN SET UP WITH [facility] 1:30 PM
--- NOTE | 2020-02-11 13:51 | NUR ---
SOCIAL WORK NOTE: Patient's Orientation Unable To Assess Information Provided By NAPOLEON TOBIAS - SON Comments SW WAS UNABLE TO MEET PATIENT AT BEDSIDE DUE TO MEDICAL CONDITION. SW COMPLETED ASSESSMENT WITH PATIENT'S SON. Psychiatry Resident, Realtionship and Phone Number NAPOLEON PAVON [phone] [facility] Power of Superintendent Generating Plant No Does Patient Have a POLST Yes Identifying Problems No Social Work Triggers Is A Social Work Consult Needed No Mandate Report Filed No Explanation Of Identifying Problems PATIENT IS AN 84-YEAR-OLD MALE ADMITTED FOR COVID AND UTI. PATIENT HAS PMHX OF CANCER, [place], CEREBROVACULAR ACCIDE, DEMENTIA, HYPERTENSION, PACEMAKER, AND ACUTE RENAL DISEASE. PER PATIENT'S SON, PATIENT IS UNABLE TO RETURN TO [facility]. [facility] IS LOCATED AT [address] [place] [address]. Admitted From Assisted Living/Resident Hospice Provider [facility] Pre-Admission Level Of Functioning Status Total Care Level Of Functioning Comment PER SON, [facility] REQUIRES TOTAL ASSISTANCE WITH ADLS. Prior Resources/Services Used In Last 12 Months Assisted Living Prior Resources/Service Comments PATIENT WAS RESIDENT OF [facility]. Prior DME Home Oxygen Hospital Bed Wheelchair Dialysis Hemodialysis Name And Phone Number of Dialysis Facility [facility] ESRD Outpatient Days M F ESRD Outpatient Time 1315 Living Situation Asst'd Living/[facility] Other Living Situation/Comment PATIENT WAS RESIDENT OF [facility] AND IS UNABLE TO RETURN. Patient Had Caregiver No Home Support No Caregiver Issues Financial Issues No Known Financial Issue Referral To The Financial Counselor Needed No Factors/Needs SNF/NH Placement Explanation And Or Other Factors Affecting/Possible DC Needs PATIENT'S SON REQUESTED PATIENT BE PLACED AT SNF CLOSE TO HIS RESIDENCE: [address] [place] [address] [place] [address]. Pt/Rep Participated In Discharge Plan Yes Patient/Family Agress With Discharge Plan Yes Discharge Plan Comments TENTATIVE DISCHARGE PLAN IS FOR PATIENT TO BE DISCHARGED TO SNF. DC Plan Status Initiated
--- NOTE | 2020-02-11 15:03 | NUR ---
02/11/20 RD INITIAL ASSESSMENT COMPLETED PLEASE REFER TO NUTRITION ASSESSMENT UNDER CARE ACTIVITY FOR ESTIMATED NUTRITIONAL NEEDS. 1. RECOMMEND MECHANICAL SOFT VS PUREE PER GERMINATION WORKER 2. CONSIDER LIBERALIZING DIET TO REGULAR FOR POOR PO INTAKE 3. NEPRO BID WILL BE PROVIDED 4. ENCOURAGE PO INTAKE AND PROVIDE ASSISTANCE WITH MEALS 5. RD TO FOLLOW-UP 2-3 DAYS, HIGH RISK ALBA ARTEAGA, RD
[2020-02-11] MEDS: MIDODRINE 5 MG TAB PO SCH (19:00)
[2020-02-11] MEDS: DEXT 5% /NACL 0.9% 1,000 ML IV SCH (20:30)
[2020-02-11] MEDS: ESCITALOPRAM 20 MG TAB PO SCH (21:18)
[2020-02-11] MEDS: ATORVASTATIN 20 MG TAB PO SCH (21:18)
[2020-02-12] VITALS (72 sets, daily range): BP systolic 81–118; BP diastolic 46–66
[2020-02-12 04:05] LABS: EOSINOPHILS # (AUTO) 0.1 K/uL (0-0.4); EOSINOPHILS % (AUTO) 0.9 % (0.0-4.0); HEMOGLOBIN 8.2 g/dL (12.0-18.0); LYMPHOCYTES # (AUTO) 0.4 K/uL (2.0-11.5); LYMPHOCYTES % (AUTO) 3.6 % (20.5-51.1); MEAN CORPUSCULAR HEMOGLOBIN 33 pg (27-31); MEAN CORPUSCULAR HGB CONC 33 g/dL (33-37); MEAN CORPUSCULAR VOLUME 100.5 fL (80-94); MONOCYTES # (AUTO) 0.3 K/uL (0.8-1.0); MONOCYTES % (AUTO) 2.6 % (1.7-9.3); NEUTROPHILS # (AUTO) 11.3 K/uL (1.8-7.7); NEUTROPHILS % (AUTO) 92.9 % (42.2-75.2); PLATELET COUNT (AUTO) 187 K/uL (140-450); RED BLOOD CELL COUNT(AUTO) 2.49 MIL/uL (4.20-6.10); RED CELL DISTRIBUTION WIDTH 17.5 % (11.6-13.7); WHITE BLOOD COUNT (AUTO) 12.1 K/uL (4.8-10.8)
[2020-02-12 04:23] LABS: CARBON DIOXIDE 26.3 mmol/L (21-32); CHLORIDE 102 mmol/L (98-107); CREATININE 3.3 mg/dL (0.6-1.3); GLUCOSE 108 mg/dL (74-106); SODIUM SERUM 137 mmol/L (136-145); UREA NITROGEN, BLOOD 23 mg/dL (7-18)
[2020-02-12 04:34] LABS: ANION GAP 11.7 (8-16)
[2020-02-12] MEDS: DILTIAZEM 30 MG TAB PO SCH ×4 (05:35→17:58)
[2020-02-12] MEDS: MIDODRINE 5 MG TAB PO SCH ×3 (06:41→17:59)
--- NOTE | 2020-02-12 07:25 | NUR ---
RECEIVED BEDSIDE REPORT FROM PARALEGAL INTERNSHIP NURSE. PT IN BED, ALERT TO NAME, ABLE TO MAKE NEEDS KNOWN. 2 LC NC, BREATHING EVEN AND UNLABORED, NO SIGNS OF ACUTE DISTRESS NOTED. L FA 22G INFUSING HEPARIN @ 350 UNIT/HR, LEVOPHED @ 6 MCG/MIN. RU CHEST CENTRAL DIALYSIS ACCESS. CLEAN DRY INTACT. BED IN LOW POSITION. PERFORATOR TYPIST IN PLACE. SAFETY MEASURES IN PLACE.
[2020-02-12] MEDS: hePARIN / DEXT 5% PREMIX 250 ML IV SCH (08:17)
[2020-02-12] MEDS ORDERED: POTASSIUM CHLORIDE 10 MEQ TABER PO PRN (09:45)
--- NOTE | 2020-02-12 09:49 | NUR ---
DR VIEYRA IS ROUNDING ON PATIENT. ORDERED 40 MEQ K-DUR PRN FOR K BELOW 3.5, WILL INPUT ORDER ACCORDINGLY.
[2020-02-12] MEDS: DEXAMETHASONE 4 MG/ML VIAL IVP SCH (10:02)
[2020-02-12] MEDS: PANTOPRAZOLE 40 MG INJ VIAL IVP SCH (10:02)
[2020-02-12] MEDS: FERROUS SULFATE 325 MG TABEC PO SCH ×2 (10:03→20:50)
[2020-02-12] MEDS: ECOTRIN 81 MG TABEC PO SCH (10:03)
[2020-02-12] MEDS: FOLIC ACID 1 MG TAB PO SCH (10:04)
[2020-02-12] MEDS: MULTIVITAMIN/MINERALS 1 TAB PO SCH (10:04)
--- NOTE | 2020-02-12 10:13 | NUR ---
MEDS ADMINISTERED PER MED ORDER. MED EDUCATION PROVIDED, REINFORCEMENT NEEDED. K-DUR 40 MEQ ADMINISTERED PER POTASSIUM LAB 3.0. PT REPOSITIONED AND OFFLOADED PRESSURE WITH PILLOWS. MORNING HYGIENE PROVIDED, CHANGED ALL DIRTY LINEN. BED IN LOW POSITION. SENIOR MECHANICAL PROJECT ENGINEER IN PLACE. SAFETY MEASURES IN PLACE.
[2020-02-12] MEDS: NOREPINEPHRINE 4 MG in DEXTROSE 5% 250 ML IV PRN ×2 (10:53→21:36)
--- NOTE | 2020-02-12 13:00 | NUR ---
ADMINISTERED MEDICATIONS PER MD ORDER. MED EDUCATION PROVIDED, REINFORCEMENT NEEDED PT IS CONFUSED AND HX OF DEMENTIA. PT TOLERATED WELL WITH SIPS OF WATER. REPOSITIONED PT AND OFFLOADED PRESSURE WITH PILLOWS. BED IN LOW POSITION. PANEL EDGE PAINTER IN PLACE. SAFETY MEASURES IN PLACE.
--- NOTE | 2020-02-12 15:10 | NUR ---
DR FERRO ROUNDING ON PT AT BEDSIDE. DR FERRO AWARE OF TROPONIN 8.178, PER DR FERRO, HE WILL INPUT NEW ORDERS.
--- NOTE | 2020-02-12 17:33 | NUR ---
DR VEGA THE ENERGY TRADER IS ROUNDING ON PATIENT.
--- NOTE | 2020-02-12 18:00 | NUR ---
ADMINISTERED SCHEDULED MEDS PER MD ORDER. MED EDUCATION PROVIDED, REINFORCEMENT NEEDED. PT TOLERATED MEDS WELL WITH PUDDING. PT REPOSITIONED AND OFFLOADED PRESSURE WITH PILLOWS. SALES DEVELOPER IN PLACE. SAFETY MEASURES IN PLACE.
--- NOTE | 2020-02-12 19:25 | NUR ---
RECEIVED REPORT PATIENT IS AWAKE BUT CONFUSED ABLE TO FOLLOWVERY SIMLE COMMAND HE IS NOT AWARE HE IS IN THE HOSPITAL,DISORIENTED OF THE TIME AND PERSON,PATIENT LEFT SIDE IS FALCCID DUE TO OLD CVA,MOVES RIGHT SIDE SIDE WELL PATIENT IS PULLING EVERYTHING REMOVING HIS OXYGEN AND TAKING OFF HIS GOWN REMOVING HIS COVERS,,PATIENT ON LEVOPHED AT 6 MCG/MIN,HEPARIN DRIP RESUMED AT 200UNITS/HR BOTH IVS ARE INFUSING THRU HIS DIALYSIS CATRHETER ON THE RBLUE PORT.PATIENT IS IN ATRIAL FIB.NOTED BOTH UPPER ARMS WITH MULTIPLE BRUISES AND ECHYMOSIS.
--- NOTE | 2020-02-12 19:29 | NUR ---
ENDORSED PT TO BUILDING RENTAL SUPERINTENDENT NURSE FOR CONTINUITY OF CARE. PT STABLE AT THIS TIME. BUILDING RENTAL SUPERINTENDENT NURSE MADE AWARE OF HEPARIN DRIP RX PROTOCOL AND HEPARIN DRIP ON HOLD FOR ONE HOUR UNTIL 1950 PER RX PROTOCOL.
--- NOTE | 2020-02-12 19:29 | NUR ---
ENDORSED PT TO SLIP BOX CHANGER NURSE FOR CONTINUITY OF CARE. PT STABLE AT THIS TIME.
[2020-02-12] MEDS: DEXT 5% /NACL 0.9% 1,000 ML IV SCH (20:30)
[2020-02-12] MEDS: ESCITALOPRAM 20 MG TAB PO SCH (20:51)
[2020-02-12] MEDS: ATORVASTATIN 20 MG TAB PO SCH (20:51)
[2020-02-13] VITALS (81 sets, daily range): BP systolic 87–118; BP diastolic 44–76
[2020-02-13] MEDS: DILTIAZEM 30 MG TAB PO SCH ×4 (00:15→17:46)
[2020-02-13] MEDS: LORazepam 0.5 MG TAB PO PRN (00:16)
[2020-02-13] MEDS: MORPHINE SULFATE 2 MG/ML SYR IVP PRN (02:06)
--- NOTE | 2020-02-13 02:07 | NUR ---
PATIENT STATED HE IS HURTING ON HIS ARM AFTER BLOOD IS DRAWNED PATIENT KEEP YELLING HE SAID HE HAS PAIN .MEDICATED WITH 1 MG OF MORPHINE FOR HIS COMFORT AND PAIN MANAGEMENT.
--- NOTE | 2020-02-13 03:00 | NUR ---
PTT RESULT IS 55.9 NO CHANGE ON THE DRIP IT STAYS AT 200 UNITS/HRPATIENT INCONTINEMNT OF URINE PARTIAL LINENS CHANGE
--- NOTE | 2020-02-13 05:00 | NUR ---
+PATIENT INTERMITTENTLY GETS AGITATED AND RESTLESS ATTEMPTS TO TRY TO GET UP BUT HE IS WEAK TO EVEN GET OUT OF BED.
--- NOTE | 2020-02-13 05:12 | NUR ---
REMAIN IN ATRIAL FIB CONTROLLED RATE.B/P STAYING ABOVE 100SYSTOLIC TITRATE LEVOPHED SLOWLY/TO 4 MCG/MIN/
[2020-02-13 06:14] LABS: BASOPHILS % (AUTO) 0.1 % (0.0-2.0); EOSINOPHILS % (AUTO) 0.1 % (0.0-4.0); HEMATOCRIT 27.9 % (36-52); HEMOGLOBIN 9.2 g/dL (12.0-18.0); LYMPHOCYTES # (AUTO) 0.4 K/uL (2.0-11.5); LYMPHOCYTES % (AUTO) 6.8 % (20.5-51.1); MEAN CORPUSCULAR HEMOGLOBIN 33 pg (27-31); MEAN CORPUSCULAR HGB CONC 33 g/dL (33-37); MEAN CORPUSCULAR VOLUME 100.2 fL (80-94); MONOCYTES # (AUTO) 0.3 K/uL (0.8-1.0); MONOCYTES % (AUTO) 4.6 % (1.7-9.3); NEUTROPHILS # (AUTO) 5.3 K/uL (1.8-7.7); NEUTROPHILS % (AUTO) 88.4 % (42.2-75.2); PLATELET COUNT (AUTO) 178 K/uL (140-450); RED BLOOD CELL COUNT(AUTO) 2.79 MIL/uL (4.20-6.10); RED CELL DISTRIBUTION WIDTH 17.8 % (11.6-13.7)
[2020-02-13 06:24] LABS: CHLORIDE 101 mmol/L (98-107); CREATININE 3.8 mg/dL (0.6-1.3); GLUCOSE 130 mg/dL (74-106); SODIUM SERUM 138 mmol/L (136-145); UREA NITROGEN, BLOOD 33 mg/dL (7-18)
[2020-02-13] MEDS: MIDODRINE 5 MG TAB PO SCH ×3 (06:42→19:00)
--- NOTE | 2020-02-13 07:20 | NUR ---
RECEIVED BEDSIDE REPORT FROM ESTIMATOR NURSE. PT IN BED, ALERT TO NAME BUT CONFUSED, ABLE TO MAKE NEEDS KNOWN. 2 LC NC, BREATHING EVEN AND UNLABORED, NO SIGNS OF ACUTE DISTRESS NOTED. L FA 22G, RU CHEST CENTRAL DIALYSIS ACCESS. CLEAN DRY INTACT. INFUSING HEPARIN @ 200 UNIT/HR, LEVOPHED @ 4 MCG/MIN.CLEAN DRY INTACT. BED IN LOW POSITION. RETAIL LOSS PREVENTION SPECIALIST IN PLACE. SAFETY MEASURES IN PLACE.
--- NOTE | 2020-02-13 10:08 | NUR ---
DR FERRO ROUNDING ON PT AT BEDSIDE.
[2020-02-13] MEDS: PANTOPRAZOLE 40 MG INJ VIAL IVP SCH (10:16)
[2020-02-13] MEDS: FERROUS SULFATE 325 MG TABEC PO SCH ×2 (10:16→21:21)
[2020-02-13] MEDS: ECOTRIN 81 MG TABEC PO SCH (10:16)
[2020-02-13] MEDS: MULTIVITAMIN/MINERALS 1 TAB PO SCH (10:17)
[2020-02-13] MEDS: FOLIC ACID 1 MG TAB PO SCH (10:17)
[2020-02-13] MEDS: EPOETIN ALFA 10,000 UNITS/ML VIAL SUBQ SCH (10:22)
--- NOTE | 2020-02-13 10:35 | NUR ---
RECEIVED CRITICAL LAB FOR TROPONIN 5.410, TRENDING DOWN, NOT REPORTED. PATIENT IS ON HEPARIN DRIP.
--- NOTE | 2020-02-13 10:39 | NUR ---
PT COMPLAINS OF 4/10 PAIN. TYLENOL ADMINISTERED PER MD ORDER. MED EDUCATION PROVIDED, REINFORCEMENT NEEDED. PT IN BED EATING WITH RN ASSIST.
--- NOTE | 2020-02-13 10:39 | NUR ---
MORNING SCHEDULED MEDS ADMINISTERED PER MD ORDER. DECADRON NOT IN STOCK, PHARMACY AWARE, WILL ADMINISTER SOON RECEIVED. MED EDUCATION PROVIDED, REINFORCEMENT NEEDED. PT REPOSITIONED AND OFFLOADED PRESSURE WITH PILLOWS. MORNING HYGIENE PROVIDED. BED IN LOW POSITION, SAFETY MEASURES IN PLACE. ASSOCIATE BUSINESS ANALYST IN PLACE.
[2020-02-13] MEDS: DEXAMETHASONE 4 MG/ML VIAL IVP SCH (12:11)
--- NOTE | 2020-02-13 13:58 | NUR ---
PTT 47.7, WITHIN THERAPEUTIC RANGE, PER RX PROTOCOL, NO CHANGE ON RATE. WILL ORDER NEXT PTT IN 24 HOUR, TOMORROW AT 11 AM.
[2020-02-13] MEDS: NOREPINEPHRINE 4 MG in DEXTROSE 5% 250 ML IV PRN (14:17)
--- NOTE | 2020-02-13 15:07 | NUR ---
02/13/20 RD FOLLOW UP COMPLETED PLEASE REFER TO NUTRITION ASSESSMENT UNDER CARE ACTIVITY FOR ESTIMATED NUTRITIONAL NEEDS. 1. RECOMMEND RENAL PUREE DIET 2. CONTINUE NEPRO BID WILL BE PROVIDED 3. ENCOURAGE PO INTAKE AND PROVIDE ASSISTANCE WITH MEALS 4. RD TO FOLLOW-UP 2-3 DAYS, HIGH RISK ALBA ARTEAGA, RD
[2020-02-13] MEDS ORDERED: ASPI-1205 PO (15:56)
[2020-02-13] MEDS ORDERED: DEC1 PO (15:56)
[2020-02-13] MEDS ORDERED: AZIT250T3 PO (15:56)
--- NOTE | 2020-02-13 17:47 | NUR ---
SCHEDULED MED, DILTIAZEM HELD. HR 69.
--- NOTE | 2020-02-13 17:50 | NUR ---
DR VEGA IS ROUNDING ON PATIENT.
--- NOTE | 2020-02-13 19:29 | NUR ---
ENDORSED PT TO WALLCOVERING TEXTURER NURSE FOR CONTINUITY OF CARE. PT STABLE AT THIS TIME.
--- NOTE | 2020-02-13 19:30 | NUR ---
RECEIVED REPORT FROM DAY SHIFT RN. PT AWAKE SITTING UP IN BED, ALERT TO NAME, L SIDED WEAKNESS NOTED FROM PREVIOUS CVA. SR 90S NOTED, NO EDEMA. PALPABLE PULSES. 2L NC, DIMINISHED BREATH SOUNDS. PT INCONTINENT TO URINE/STOOL. TOLERATING PO INTAKE; RENAL DIET PUREED. BRUISING TO BILATERAL ARMS NOTED, BLANCHABLE REDNESS TO SACRAL COCCYX AREA. HD CATH TO R UPPER CHEST. LEVOPHED @ 2 MCG/MIN, HEPARIN DRIP @ 200 UNITS/HR. BED LOCKED IN LOWEST POSITION. CALL LIGHT WITHIN REACH. WILL CONTINUE TO OBSERVE.
[2020-02-13] MEDS: DEXT 5% /NACL 0.9% 1,000 ML IV SCH (20:30)
--- NOTE | 2020-02-13 21:00 | NUR ---
LEVOPHED TURNED OFF. PT TOLERATING, MAP>65.
[2020-02-13] MEDS: ESCITALOPRAM 20 MG TAB PO SCH (21:21)
[2020-02-13] MEDS: ATORVASTATIN 20 MG TAB PO SCH (21:21)
[2020-02-13] MEDS: MEROPENEM 500 MG in NACL 0.9% 50 ML IV SCH (21:21)
[2020-02-14] VITALS (7 sets, daily range): BP systolic 87–101; BP diastolic 48–71
--- NOTE | 2020-02-14 03:30 | NUR ---
PT CLEANED; CHG BATH GIVEN, LINEN CHANGED.
[2020-02-14] MEDS: DILTIAZEM 30 MG TAB PO SCH ×4 (06:00→18:00)
--- NOTE | 2020-02-14 07:30 | NUR ---
RECEIVED BEDSIDE REPORT FROM SHEET ROCK APPLIER NURSE MARJORIE FOR CONTINUITY OF CARE. PT IS LYING COMFORTABLE ON BED, AROUSABLE TO VOICE, ABLE TO MAKE NEEDS KNOWN, BUT UNABLE TO FOLLOW COMMAND, CONFUSED, ALERT ORIENTED TO NAME, AND PLACE. BREATHING EVEN AND UNLABORED, 2 LPM VIA NC, SPO2 AT 97% AT THIS TIME. DENIES PAIN. NO SIGNS OF ACUTE DISTRESS NOTED. HEPARIN DRIP RUNNING ON DIALYSIS PORT. SKIN DRY AND WARM TO TOUCH, SKIN TEAR ON ARM COVERED WITH VERSATEL, SACRAL REDNESS NOTED, SECURED WITH HEART-SHAPE OPTIFOAM. PATIENT IS INCONTINENT AND BEDREST DUE TO MILD WEAKNESS. FALL RISK PROTOCOL AND ENHANCED DROPLET PROTOCOL IN PLACE. SAFETY MEASURES IN PLACE. TELE MONITOR IN PLACE. BED IN LOW POSITION, IN [place]SE [place], AND BED LOCKED. INSTRUCTED PATIENT TO USE THE CALL LIGHT FOR ANY ASSISTANCE, PATIENT SAID OK.
--- NOTE | 2020-02-14 07:30 | NUR ---
ENDORSED TO DAY SHIFT RN FOR CONTINUITY OF CARE
[2020-02-14] MEDS: MIDODRINE 5 MG TAB PO SCH ×3 (07:44→18:40)
--- NOTE | 2020-02-14 08:28 | NUR ---
DR CRUZ IS ROUNDING ON PATIENT.
[2020-02-14] MEDS: MEROPENEM 500 MG in NACL 0.9% 50 ML IV SCH ×2 (09:00→21:35)
[2020-02-14] MEDS: DEXAMETHASONE 4 MG/ML VIAL IVP SCH (10:00)
[2020-02-14] MEDS: FERROUS SULFATE 325 MG TABEC PO SCH ×2 (10:01→21:35)
[2020-02-14] MEDS: MULTIVITAMIN/MINERALS 1 TAB PO SCH (10:01)
[2020-02-14] MEDS: PANTOPRAZOLE 40 MG INJ VIAL IVP SCH (10:01)
[2020-02-14] MEDS: FOLIC ACID 1 MG TAB PO SCH (10:01)
[2020-02-14] MEDS: ECOTRIN 81 MG TABEC PO SCH (10:01)
--- NOTE | 2020-02-14 10:05 | NUR ---
ADMINISTERED AM MEDS PER MD ORDER, PATIENT TOLERATED MEDS WELL WITH WATER. ASSISTED TO EAT BREAKFAST, PATIENT HAS LOW APPETITE, ONLY ATE 25% OF MEAL. PATIENT AWAKE AND MOVING AROUND ON BED, DEMONSTRATED TO PATIENT ON HOW TO USE THE CALL LIGHT FOR ASSISTANCE AND PATIENT SAID OK. NO SIGNS OF ACUTE DISTRESS NOTED. SAFETY MEASURES IN PLACE. FALL RISK PROTOCOL IN PLACE.
[2020-02-14 11:17] LABS: BASOPHILS % (AUTO) 0.1 % (0.0-2.0); HEMATOCRIT 29.5 % (36-52); HEMOGLOBIN 9.6 g/dL (12.0-18.0); LYMPHOCYTES # (AUTO) 0.4 K/uL (2.0-11.5); MEAN CORPUSCULAR HEMOGLOBIN 33 pg (27-31); MEAN CORPUSCULAR HGB CONC 33 g/dL (33-37); MEAN CORPUSCULAR VOLUME 100.1 fL (80-94); MONOCYTES # (AUTO) 0.4 K/uL (0.8-1.0); MONOCYTES % (AUTO) 5.7 % (1.7-9.3); NEUTROPHILS # (AUTO) 6.3 K/uL (1.8-7.7); NEUTROPHILS % (AUTO) 88.2 % (42.2-75.2); PLATELET COUNT (AUTO) 211 K/uL (140-450); RED BLOOD CELL COUNT(AUTO) 2.95 MIL/uL (4.20-6.10); RED CELL DISTRIBUTION WIDTH 17.2 % (11.6-13.7); WHITE BLOOD COUNT (AUTO) 7.2 K/uL (4.8-10.8)
[2020-02-14 11:32] LABS: ANION GAP 15.1 (8-16); CARBON DIOXIDE 22.9 mmol/L (21-32); CHLORIDE 102 mmol/L (98-107); GLUCOSE 123 mg/dL (74-106); SODIUM SERUM 136 mmol/L (136-145); UREA NITROGEN, BLOOD 45 mg/dL (7-18)
--- NOTE | 2020-02-14 11:40 | NUR ---
RECEIVED A CALL FROM PATIENT'S SON BRAIN, UPDATED BRAIN WITH PATIENT'S CURRENT CONDITION AND BRAIN WAS AWARE.
[2020-02-14 11:46] LABS: CREATININE 4.3 mg/dL (0.6-1.3)
--- NOTE | 2020-02-14 11:47 | NUR ---
RECEIVED CRITICAL LAB FOR CR 4.3 AND BUN 45, PAGED DR VEGA AND AWAITING FOR MD TO RETURN CALL.
--- NOTE | 2020-02-14 11:50 | NUR ---
PTT 46.7, WITHIN THERAPEUTIC RANGE, PER RX PROTOCOL, NO CHANGE ON RATE. WILL ORDER NEXT PTT IN 24 HOUR.
--- NOTE | 2020-02-14 12:32 | NUR ---
ENDORSED PATIENT TO DONNY FOR CONTINUITY OF CARE.
--- NOTE | 2020-02-14 12:35 | NUR ---
RECEIVED PT FROM ICU NURSE, PT IS RESTING IN BED, DIALYSIS CATH PRESENT TO R UPPER CHEST, ON 3L NC, NO SIGNS OF DISTRESS NOTED, WILL CONTINUE TO MONITOR.
--- NOTE | 2020-02-14 14:02 | NUR ---
SCHEDULED MEDICATION ADMINISTERED W/ IN PARAMETERS, HR 85, BP 103/76, CARDIZEM HELD PER PARAMETERS, WILL CONTINUE TO MONITOR.
--- NOTE | 2020-02-14 19:10 | NUR ---
RECEIVED BEDSIDE REPORT FROM NIGHT DAY NURSE. PT IS SLEEPING AROUSABLE TO VOICE AND TOUCH. UNABLE TO FOLLOW COMMAND. RESPIRATION EVEN UNLABORED ON 2L NC O2. NO DISTRESS NOTED. SKIN IS WARM AND DRY. RIGHT FOREARM SKIN TEAR NOTED. RIGHT UPPER CHEST DIALYSIS PORT NOTED. HEPARIN DRIP RUNNING AT 200UNITS/HR ON DIALYSIS PORT. PLAN OF CARE WAS DISCUSSED. ALL SAFETY MEASURE IN PLACE. BED IS AT LOW POSITION. CALL LIGHT WITHIN REACH. WILL CONTINUE TO MONITOR,
--- NOTE | 2020-02-14 19:30 | NUR ---
ENDORSED PT TO REHAB THERAPY MANAGER NURSE FOR CONTINUITY OF CARE.
[2020-02-14] MEDS: DEXT 5% /NACL 0.9% 1,000 ML IV SCH (20:30)
[2020-02-14] MEDS ORDERED: MEROPENEM 500 MG VIAL IV ONE (21:31)
[2020-02-14] MEDS: ESCITALOPRAM 20 MG TAB PO SCH (21:35)
--- NOTE | 2020-02-14 21:35 | NUR ---
ALL SCHEDULED MEDS WERE GIVEN. PER DR. GARY HYATT TO USE HD CATH FOR IV MEDICATION. WILL CONTINUE TO MONITOR
[2020-02-14] MEDS: ATORVASTATIN 20 MG TAB PO SCH (21:36)
[2020-02-14] MEDS ORDERED: CRUSHER, PILL MC ONE (21:49)
--- NOTE | 2020-02-15 00:35 | NUR ---
VITALS WERE TAKEN BP 89/58 (66) HR 99 RR 20. HELD PATIENT BP MEDS PER PARAMETER. WILL CONTINUE TO MONITOR.
--- NOTE | 2020-02-15 02:11 | NUR ---
CHECKED ON PATIENT. PATIENT SLEEPING RESPIRATION EVEN UNLABORED ON 2L NC O2. NO DISTRESS NOTED. WILL CONTINUE TO MONITOR
[2020-02-15 04:00] VITALS: BP 98/54
--- NOTE | 2020-02-15 04:54 | NUR ---
PROVIDED AM CARE
--- NOTE | 2020-02-15 05:00 | NUR ---
PATIENT BP STILL IN THE LOW SIDE. CARDIZEM MED NOT GIVEN PER PARAMETER
[2020-02-15] MEDS: DILTIAZEM 30 MG TAB PO SCH ×3 (05:48→11:59)
[2020-02-15] MEDS: MIDODRINE 5 MG TAB PO SCH ×2 (06:24→12:38)
--- NOTE | 2020-02-15 07:25 | NUR ---
ENDORSED PATIENT TO DAY SHIFT NURSE FOR CONTINUITY OF CARE.
--- NOTE | 2020-02-15 07:31 | NUR ---
RECEIVED REPORT FROM NIGHTSHIFT NURSE. PT RESTING IN BED. ABLE TO MAKE NEEDS KNOWN. RESPIRATIONS EVEN AND UNLABORED WITH NO SOB OR RESPIRATORY DISTRESS. SKIN WARM AND DRY TO TOUCH. IV SITE IN R UPPER CHEST HD CATH IS CLEAN, DRY, AND INTACT. SAFETY MEASURES IN PLACE. WILL CONTINUE TO MONITOR
[2020-02-15 08:52] LABS: BASOPHILS % (AUTO) 0.1 % (0.0-2.0); HEMATOCRIT 26.3 % (36-52); HEMOGLOBIN 8.9 g/dL (12.0-18.0); LYMPHOCYTES # (AUTO) 0.4 K/uL (2.0-11.5); LYMPHOCYTES % (AUTO) 5.1 % (20.5-51.1); MEAN CORPUSCULAR HEMOGLOBIN 34 pg (27-31); MEAN CORPUSCULAR HGB CONC 34 g/dL (33-37); MEAN CORPUSCULAR VOLUME 100.1 fL (80-94); MONOCYTES # (AUTO) 0.5 K/uL (0.8-1.0); MONOCYTES % (AUTO) 6.8 % (1.7-9.3); NEUTROPHILS # (AUTO) 6.1 K/uL (1.8-7.7); PLATELET COUNT (AUTO) 153 K/uL (140-450); RED BLOOD CELL COUNT(AUTO) 2.63 MIL/uL (4.20-6.10); RED CELL DISTRIBUTION WIDTH 17.1 % (11.6-13.7); WHITE BLOOD COUNT (AUTO) 6.9 K/uL (4.8-10.8)
[2020-02-15] MEDS: ECOTRIN 81 MG TABEC PO SCH (09:00)
[2020-02-15] MEDS: MEROPENEM 500 MG in NACL 0.9% 50 ML IV SCH (09:14)
[2020-02-15] MEDS: FERROUS SULFATE 325 MG TABEC PO SCH (09:16)
[2020-02-15] MEDS: FOLIC ACID 1 MG TAB PO SCH (09:16)
[2020-02-15] MEDS: MULTIVITAMIN/MINERALS 1 TAB PO SCH (09:17)
[2020-02-15] MEDS: PANTOPRAZOLE 40 MG INJ VIAL IVP SCH (09:19)
[2020-02-15] MEDS: EPOETIN ALFA 10,000 UNITS/ML VIAL SUBQ SCH (09:19)
[2020-02-15] MEDS: DEXAMETHASONE 4 MG/ML VIAL IVP SCH (09:25)
--- NOTE | 2020-02-15 09:38 | NUR ---
ADMINISTERED SCHED MED PRESCRIBED PER MD ORDER. PT TOLERATED WELL. MEDICATION EDUCATION EDUCATION PERFORMED. PT UNABLE TO VERBALIZE UNDERSTANDING DUE TO CONFUSION. SAFETY MEASURES IN PLACE. WILL CONTINUE TO MONITOR
[2020-02-15 10:11] LABS: ANION GAP 14.1 (8-16); CARBON DIOXIDE 24.8 mmol/L (21-32); CHLORIDE 104 mmol/L (98-107); GLUCOSE 105 mg/dL (74-106); POTASSIUM 3.9 mmol/L (3.5-5.1); SODIUM SERUM 139 mmol/L (136-145); UREA NITROGEN, BLOOD 54 mg/dL (7-18)
[2020-02-15 10:37] LABS: CREATININE 4.3 mg/dL (0.6-1.3)
--- NOTE | 2020-02-15 11:59 | NUR ---
HELD CARDIZEM DUE TO PATIENT LOW BP. SAFETY MEASURES IN PLACE. WILL CONTINUE TO MONITOR
--- NOTE | 2020-02-15 12:54 | NUR ---
ADMINISTERED SCHED MED PRESCRIBED PER MD ORDER. PT TOLERATED WELL. MEDICATION EDUCATION EDUCATION PERFORMED. PT CONFUSED AND UNABLE TO VERBALIZE UNDERSTANDING. SAFETY MEASURES IN PLACE. WILL CONTINUE TO MONITOR
[2020-02-15 13:14] VITALS: BP 112/72
--- NOTE | 2020-02-15 13:15 | NUR ---
REPORT GIVEN TO ZAY WOODWARD AT [facility]. RN VERBALIZED UNDERSTANDING. SAFETY MEASURES IN PLACE. WILL CONTINUE TO MONITOR
--- NOTE | 2020-02-15 13:30 | NUR ---
[facility] HERE TO TAKE PATIENT. REPORT GIVEN. PT TO GO TO [facility]. PT HAS NO IV SITE. PT UNABLE TO SIGN FOR HIMSELF. REMOVED ID BAND AND ALLERGY BAND. REPORT ALREADY GIVEN. ADMINISTERED HEP LOCK TO HD CATHS PER MD ORDER. PT TOLERATED WELL. GATHERED ALL OF PATIENTS BELONGINGS. PT IS STABLE TO TRANSFER
[2020-02-17] MEDS ORDERED: ESCI20TA PO (02:35)
[2020-02-17] MEDS ORDERED: SINE25 PO (02:35)
== END 2020-02-15 13:30 | DRG 871 ==
LOC: MED 08:06 → MTU 11:12 → MMU 02-11 02:58 → MTU 02-14 17:40
PROVIDERS: ADMIT Hospitalist; ATTEND Hospitalist
PROC: 5A1D70Z Performance of Urinary Filtration, Intermittent, Less than 6 Hours Per Day (ICD-10-PCS; principal; 2020-02-11)
DX: A41.9 Sepsis, unspecified organism (principal); G93.41 Metabolic encephalopathy; N18.6 End stage renal disease; U07.1 COVID-19; J96.01 Acute respiratory failure with hypoxia; N17.0 Acute kidney failure with tubular necrosis; E43 Unspecified severe protein-calorie malnutrition; J12.89 Other viral pneumonia; R65.21 Severe sepsis with septic shock; I21.A1 Myocardial infarction type 2; N39.0 Urinary tract infection, site not specified; I13.11 Hypertensive heart and chronic kidney disease without heart failure, with stage 5 chronic kidney disease, or end stage renal disease; I69.354 Hemiplegia and hemiparesis following cerebral infarction affecting left non-dominant side; Z16.12 Extended spectrum beta lactamase (ESBL) resistance; Z68.21 Body mass index [BMI] 21.0-21.9, adult; B96.20 Unspecified Escherichia coli [E. coli] as the cause of diseases classified elsewhere; C61 Malignant neoplasm of prostate; D63.8 Anemia in other chronic diseases classified elsewhere; E78.5 Hyperlipidemia, unspecified; F03.90 Unspecified dementia, unspecified severity, without behavioral disturbance, psychotic disturbance, mood disturbance, and anxiety; I25.10 Atherosclerotic heart disease of native coronary artery without angina pectoris; J43.9 Emphysema, unspecified; Z66 Do not resuscitate; Z85.46 Personal history of malignant neoplasm of prostate; Z87.891 Personal history of nicotine dependence; Z88.0 Allergy status to penicillin; Z95.5 Presence of coronary angioplasty implant and graft; Z99.2 Dependence on renal dialysis; I25.2 Old myocardial infarction
CPT/HCPCS: 36415; 71045; 80048; 80053; 81001; 82272; 83605; 83615; 83735; 83880; 84100; 84484; 85025; 85379; 85610; 85651; 85730; 86140; 86886; 86900; 86901; 87040; 87086; 87804; 90935; 92610; 93005; 97110; 97161-GP; 99285; C9113; J0696; J0885; J1100; J1644; J1956; J2060; J2185; J2270; J2997; J3490; J7060; P9046; U0003